=== PATIENT | female | born 2000 | race Hispanic/Latino ===

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

== ENCOUNTER → 2018-09-29 | Outpatient (CLI) | payer MEDICAID ==
--- NOTE | 2018-09-29 10:43 | Diagnostic Imaging Report ---
CLINICAL INDICATION: Patient with thyroid nodule. COMPARISONS: Thyroid ultrasound dated 10/21/2016. FINDINGS: THYROID NODULES: There is a 4 mm x 2 mm x 4 mm slightly heterogeneous hypoechoic nodule involving the medial midportion of the left thyroid gland. There is no significant central Doppler flow. Given the differences in technique, this nodule is grossly stable. THYROID GLAND: Besides the thyroid nodule, the thyroid gland has normal size, shape and echogenicity. The right lobe measures 4.2 cm x 1.6 cm x 1.0 cm and the left lobe measures 3.3 cm x 0.7 cm x 1.0 cm in their three dimensions. ISTHMUS: The isthmus is unremarkable and measures 2.7 mm in thickness. IMPRESSION: 1: Given the differences in technique, there is no significant change in size of the 4 mm benign-appearing nodule in the left thyroid gland. 2: Otherwise, the thyroid gland is unremarkable. Dictated by: Dictated on workstation # [id number]
== END ==
LOC: RAD 08:14
PROVIDERS: ATTEND Family Medicine
DX: E04.1 Nontoxic single thyroid nodule (principal)
CPT/HCPCS: 76536

== ENCOUNTER 2019-02-24 03:40 | Emergency (ER) | payer BC, MEDICAID ==
[~2019-02-24] VITALS: Ht 160 cm; Wt 56.7 kg
--- OUTSIDE RECORDS SUMMARY | 2019-02-24 03:46 | XMS REPORT ---
Author Author SHANE GOLDEN [facility] Address [address] [place] [address] Care Team Providers Care Civil Process Server Name Role Phone PERICOTroy SHANE Unavailable PROBLEMS Unknown Problems ALLERGIES No Known Allergies ENCOUNTERS Encounter Location Date Diagnosis [facility] [address], [place] [address] Dec, School physical exam Z02.0 [facility] [address] [id number] Oct, Encounter for immunization Z23 [facility] [address] [id number] Aug, Encounter for immunization Z23 [facility] [address] [id number] Aug, Encounter for immunization Z23 [facility] [address] [id number] Jul, Visit for TB skin test Z11.1 and Screening for tuberculosis Z11.1 [facility] [place] [address] [id number] Jul, Visit for TB skin test Z11.1 and Screening for tuberculosis Z11.1 [facility] [address] [facility] [id number], [place] [address] Jun, [facility] [place] [address] [id number] Jun, Acute non-recurrent maxillary sinusitis J01.00 [facility] [address] [id number] [place] [address] Jul, [facility] [id number] [address] Feb, [facility] [place] [facility] [address] [facility] [id number], [place] [address] Feb, [facility] [place] [facility] [address] [facility] [id number], [place] [address] Feb, [facility] [place] [facility] [address] [facility] [id number], [place] [address] Feb, [facility] [place] [facility] [address] [facility] [id number], [place] [address] Feb, Encounter for PPD test V74.1 [facility] [place] [facility] [address] [facility] [id number] [place] [address] Feb, Encounter for PPD test V74.1 [facility] [place] [facility] [id number] [place] [address] Jan, [facility] [place] [facility] [address] [facility] [id number], [place] [address] Jan, [facility] [place] [facility] [address] [facility] [id number], [place] [address] Jan, [facility] [place] [facility] [address] [facility] [id number], [place] [address] Dec, [facility] [place] [facility] [address] [facility] [id number], [place] [address] Dec, [facility] [place] [facility] [address] [facility] [id number], [place] [address] Sep, [facility] [place] [facility] [address] [facility] [id number] [place] [address] Sep, [facility] [place] [facility] [address] [facility] [id number], [place] [address] Aug, [facility] [place] [facility] [address] [facility] [id number] [place] [address] Aug, [facility] [place] [facility] [address] [facility] [id number] [place] [address] Jul, [facility] [place] [facility] [address] [id number] [place] [address] Jul, [facility] [place] [facility] [address] [id number] [place] [address] Jul, [facility] [place] [facility] [address] [id number] [place] [address] Jul, [facility] [place] [facility] [address] [id number] [place] [address] Jul, [facility] [place] [facility] [address] [id number] [place] [address] Jul, [facility] [place] [facility] [address] [id number] [place] [address] Jul, [facility] [place] [facility] [address] [id number] [place] [address] Jul, [facility] [place] [facility] [address] [id number] [place] [address] Jun, [facility] [place] [facility] [address] [id number] [place] [address] Jun, [facility] [place] [facility] [address] [id number] [place] [address] May, [facility] [place] [facility] [address] [id number] [place] [address] May, [facility] [place] [facility] [address] [id number] [place] [address] 14 Apr, 2014 [facility] [place] [facility] [address] [id number] [place] [address] 14 Apr, 2014 [facility] [place] [facility] [address] [id number] [place] [address] 10 Apr, 2014 [facility] [place] [facility] [address] [id number] [place] [address] 10 Apr, 2014 [facility] [address] [facility] [id number], [place] [address] Mar, [facility] [address] [facility] [id number], [place] [address] Mar, [facility] [address] [facility] [id number], [place] [address] Feb, [facility] [address] [facility] [id number], [place] [address] Feb, [facility] [address] [facility] [id number], [place] [address] Feb, [facility] [address] [facility] [id number], [place] [address] Feb, [facility] [address], [place] [address] Jan, [facility] [address], [place] [address] Jan, [facility] [id number], [place] [address] Sep, [facility] [id number], [place] [address] Sep, [facility] [id number], [place] [address] Feb, [facility] [id number], [place] [address] Feb, IMMUNIZATIONS No Known Immunizations SOCIAL HISTORY Never Assessed 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 PLAN OF CARE Activity Details Follow Up prn Reason: VITAL SIGNS Height 62.5 in 2017-12-28 Weight 121.9 lbs 2017-12-28 Temperature 98.0 degrees Fahrenheit 2017-12-28 Heart Rate 70 bpm 2017-12-28 Respiratory Rate 18 2017-12-28 BMI 21.94 kg/m2 2017-12-28 Blood pressure systolic 112 mmHg 2017-12-28 Blood pressure diastolic 68 mmHg 2017-12-28 MEDICATIONS No Known Medications RESULTS Name Result Date Reference Range URINE DRUG SCREEN (IN HOUSE) 2017-12-28 Lot # [id number] Exp date 02/09 Control + COCAINE negative AMPH negative MTD negative THC negative OPIATE negative BENZO negative PCP negative BAR negative OXY negative MAMP negative BUP negative MDMA negative TCA n/a PROCEDURES Procedure Date Ordered Result Body Site SPECIMEN HANDLING December 28, 2017 VENIPUNCT, ROUTINE* December 28, 2017 DRUG TEST PRSMV DIR OPT OBS December 28, 2017 INSTRUCTIONS MEDICATIONS ADMINISTERED No Known Medications MEDICAL (GENERAL) HISTORY Type Description Date Surgical History apendectomy 2013
--- OUTSIDE RECORDS SUMMARY | 2019-02-24 03:46 | XMS REPORT ---
Author Author SANDRA FROST Organization [facility] Address [address] [place] [address] Care Team Providers Care County Agent Name Role Phone SANDRA FROST Unavailable PROBLEMS Type Condition ICD9-CM Code [id number] Code Onset Dates Condition Status SNOMED Code Problem Gastroesophageal reflux disease with esophagitis K21.0 Active [id number] ALLERGIES No Known Allergies ENCOUNTERS Encounter Location Date Diagnosis [facility] [id number] [place] [address] Feb, Gastroesophageal reflux disease with esophagitis K21.0 [facility] [id number] [place] [address] Dec, School physical exam Z02.0 [facility] [id number] [place] [id number] Oct, Encounter for immunization Z23 [facility] [id number] [place] [id number] Aug, Encounter for immunization Z23 [facility] [id number] [place] [id number] Aug, Encounter for immunization Z23 [facility] [id number] [place] [id number] Jul, Visit for TB skin test Z11.1 and Screening for tuberculosis Z11.1 [facility] [address] [id number] Jul, Visit for TB skin test Z11.1 and Screening for tuberculosis Z11.1 [facility] [id number] [place] [address] Jun, [facility] [address], [place] [id number] Jun, Acute non-recurrent maxillary sinusitis J01.00 [facility] [address] [id number] [place] [address] Jul, [facility] [address], [place] [address] Feb, [facility] [address], [place] [address] Feb, [facility] [address], [place] [address] Feb, [facility] [id number] [place] [address] Feb, [facility] [address], [place] [address] Feb, Encounter for PPD test V74.1 [facility] [address], [place] [address] Feb, Encounter for PPD test V74.1 [facility] [address], [place] [address] Jan, [facility] [address], [place] [address] Jan, [facility] [id number], [place] [address] Jan, [facility] [id number], [place] [address] Dec, [facility] [id number], [place] [address] Dec, [facility] [address], [place] [address] Sep, [facility] [id number], [place] [address] Sep, [facility] [address] [place] [address] 17 Aug, 2014 [facility] [address] [id number] [place] [address] 17 Aug, 2014 [facility] [place] [facility] [address] [id number] [place] [address] Jul, [facility] [address] [id number] [place] [address] Jul, [facility] [place] [facility] [address] [id number] [place] [address] Jul, [facility] [address] [id number] [place] [address] Jul, [facility] [place] [facility] [address] [id number] [place] [address] Jul, [facility] [place] [facility] [address] [id number] [place] [address] Jul, [facility] [address] [id number] [place] [address] Jul, [facility] [place] [facility] [address] [id number] [place] [address] Jul, [facility] [address] [facility] [id number] [place] [address] Jun, [facility] [place] [facility] [address] [id number] [place] [address] Jun, [facility] [place] [facility] [address] [id number] [place] [address] May, [facility] [place] [facility] [address] [id number] [place] [address] May, [facility] [place] [facility] [address] [id number] [place] [address] 14 Apr, 2014 [facility] [place] [facility] [address] [id number] [place] [address] Apr, [facility] [address] [facility] [id number] [address] Apr, [facility] [address] [facility] [id number] [place] [address] Apr, [facility] [address] [facility] [id number] [place] [address] Mar, [facility] [address] [facility] [id number] [place] [address] Mar, [facility] [address] [id number] [place] [address] Feb, [facility] [address] [facility] [id number] [place] [address] Feb, [facility] [address] [facility] [id number] [place] [address] Feb, [facility] [address] [facility] [id number], [place] [address] Feb, [facility] [id number], [place] [address] Jan, [facility] [id number], [place] [address] Jan, [facility] [id number], [place] [address] Sep, [facility] [id number], [place] [address] Sep, [facility] [id number], [place] [address] Feb, [facility] [id number], [place] [address] Feb, IMMUNIZATIONS No Known Immunizations SOCIAL HISTORY Never Assessed REASON FOR VISIT fever/stomach pain JStrasserRN PLAN OF CARE VITAL SIGNS Height 62.5 in 2018-03-18 Weight 216 lbs 2018-03-18 Heart Rate 72 bpm 2018-03-18 Respiratory Rate 16 2018-03-18 BMI 38.87 kg/m2 2018-03-18 Blood pressure systolic 122 mmHg 2018-03-18 Blood pressure diastolic 68 mmHg 2018-03-18 MEDICATIONS Medication Instructions Dosage Frequency Start Date End Date Duration Status Famotidine 20 mg Orally every 12 hrs 1 tablet as needed 12h Feb, 30 day(s) Active RESULTS No Results PROCEDURES No Known procedures INSTRUCTIONS MEDICATIONS ADMINISTERED No Known Medications MEDICAL (GENERAL) HISTORY Type Description Date Surgical History apendectomy 2013
--- OUTSIDE RECORDS SUMMARY | 2019-02-24 03:46 | XMS REPORT ---
Author Author SHAWN CARR [facility] Address [address] [place] [address] Care Team Providers Care Jewish Thought Professor Name Role Phone SHAWN CARR Unavailable PROBLEMS Type Condition ICD9-CM Code AUN07-RO Code Onset Dates Condition Status SNOMED Code Problem Gastroesophageal reflux disease with esophagitis K21.0 Active [id number] ALLERGIES No Information ENCOUNTERS Encounter Location Date Diagnosis [facility] [address], [place] [address] Feb, Gastroesophageal reflux disease with esophagitis K21.0 [facility] [id number] [place] [address] Dec, School physical exam Z02.0 [facility] [id number] [place] [address] [id number] Oct, Encounter for immunization Z23 [facility] [id number] [place] [address] [id number] Aug, Encounter for immunization Z23 [facility] [address] [id number] [id number] Aug, Encounter for immunization Z23 [facility] [id number] [place] [address] [id number] Jul, Visit for TB skin test Z11.1 and Screening for tuberculosis Z11.1 [facility] [id number] [place] [address] [id number] Jul, Visit for TB skin test Z11.1 and Screening for tuberculosis Z11.1 [facility] [address] [id number] [address] Jun, [facility] [address] [place] [id number] Jun, Acute non-recurrent maxillary sinusitis J01.00 [facility] [address] [id number] [place] [address] Jul, [facility] [address] [facility] [id number], [place] [address] Feb, [facility] [address] [facility] [id number], [place] [address] Feb, [facility] [address] [id number] [address] Feb, [facility] [address], [place] [address] Feb, [facility] [address], [place] [address] Feb, Encounter for PPD test V74.1 [facility] [address], [place] [address] Feb, Encounter for PPD test V74.1 [facility] [address] [id number], [place] [address] Jan, [facility] [address], [place] [address] Jan, [facility] [address] [id number], [place] [address] Jan, [facility] [address] [id number], [place] [address] Dec, [facility] [address] [id number], [place] [address] Dec, [facility] [address] [id number], [place] [address] Sep, [facility] [address] [id number], [place] [address] Sep, [facility] [address] [id number] [place] [address] 17 Aug, 2014 [facility] [address] [id number] [place] [address] Aug, [facility] [place] [facility] [address] [id number] [place] [address] Jul, [facility] [place] [facility] [address] [id number] [place] [address] Jul, [facility] [place] [facility] [address] [id number] [place] [address] Jul, [facility] [place] [facility] [address] [id number] [place] [address] Jul, [facility] [place] [facility] [address] [id number] [place] [address] Jul, [facility] [place] [facility] [address] [id number] [place] [address] Jul, [facility] [place] [facility] [address] [id number] [place] [address] Jul, [facility] [place] [facility] [address] [id number] [place] [address] Jul, [facility] [place] [facility] [address] [id number] [place] [address] Jun, [facility] [place] [facility] [address] [id number] [place] [address] Jun, [facility] [place] [facility] [address] [id number] [place] [address] May, [facility] [place] [facility] [address] [id number] [place] [address] May, [facility] [place] [facility] [address] [id number] [place] [address] Apr, [facility] [place] [facility] [address] [id number] [place] [address] Apr, [facility] [address] [facility] [id number], [place] [address] Apr, [facility] [address] [facility] [id number], [place] [address] Apr, [facility] [address] [facility] [id number], [place] [address] Mar, [facility] [address] [id number], [place] [address] Mar, [facility] [address] [facility] [id number], [place] [address] Feb, [facility] [address] [facility] [id number], [place] [address] Feb, [facility] [address] [facility] [id number], [place] [address] Feb, [facility] [address] [facility] [id number], [place] [address] Feb, [facility] [address] [facility] [id number], [place] [address] Jan, [facility] [address] [facility] [id number], [place] [address] Jan, [facility] [address] [facility] [id number], [place] [address] Sep, [facility] [address] [facility] [id number], [place] [address] Sep, [facility] [address] [facility] [id number], [place] [address] Feb, [facility] [address] [facility] [id number], [place] [address] Feb, IMMUNIZATIONS No Known Immunizations SOCIAL HISTORY Never Assessed REASON FOR VISIT PLAN OF CARE VITAL SIGNS MEDICATIONS No Known Medications RESULTS No Results PROCEDURES No Known procedures INSTRUCTIONS MEDICATIONS ADMINISTERED No Known Medications MEDICAL (GENERAL) HISTORY Type Description Date Surgical History apendectomy 2014
--- OUTSIDE RECORDS SUMMARY | 2019-02-24 03:46 | XMS REPORT ---
Author Author SHAWN CARR [facility] Address [address] [place] [address] Care Team Providers Care Steamboat Pilot Name Role Phone SHAWN CARR Unavailable PROBLEMS Type Condition ICD9-CM Code GTP78-QU Code Onset Dates Condition Status SNOMED Code Problem Gastroesophageal reflux disease with esophagitis K21.0 Active [id number] ALLERGIES No Information ENCOUNTERS Encounter Location Date Diagnosis [facility] [address] [address] Feb, Gastroesophageal reflux disease with esophagitis K21.0 [facility] [id number] [place] [place] [address] Dec, School physical exam Z02.0 [facility] [id number] [place] [place] [address] [id number] Oct, Encounter for immunization Z23 [facility] [id number] [place] [place] [address] [id number] Aug, Encounter for immunization Z23 [facility] [address] [id number] [id number] Aug, Encounter for immunization Z23 [facility] [id number] [place] [place] [address] [id number] Jul, Visit for TB skin test Z11.1 and Screening for tuberculosis Z11.1 [facility] [id number] [place] [place] [address] [id number] Jul, Visit for TB skin test Z11.1 and Screening for tuberculosis Z11.1 [facility] [address] [id number] [address] Jun, [facility] [address] [place] [id number] Jun, Acute non-recurrent maxillary sinusitis J01.00 [facility] [address] [id number] [place] [address] Jul, [facility] [address] [facility] [id number] [place] [address] Feb, [facility] [address] [facility] [id number] [place] [address] Feb, [facility] [address] [id number] [address] Feb, [facility] [address]005[address] [address] Feb, [facility] [address]005[address] [address] Feb, Encounter for PPD test V74.1 [facility] [address]005[address] [address] Feb, Encounter for PPD test V74.1 [facility] [address] [id number] [address] Jan, [facility] [address]005[address] [address] Jan, [facility] [address] [id number] [address] Jan, [facility] [address] [id number] [address] Dec, [facility] [address] [id number] [address] Dec, [facility] [address] [id number] [address] Sep, [facility] [address] [id number] [address] Sep, [facility] [address] [id number] [place] [address] 17 Aug, 2014 [facility] [address] [id number] [place] [address] Aug, [facility] [place] [facility] [address] [id number] [place] [address] Jul, [facility] [place] [facility] [address] [id number] [place] [address] Jul, [facility] [place] [facility] [address] [id number] [place] [address] Jul, [facility] [place] [facility] [address] [id number] [place] [address] Jul, [facility] [place] [facility] [address] [id number] [place] [address] Jul, [facility] [place] [facility] [address] [id number] [place] [address] Jul, [facility] [place] [facility] [address] [id number] [place] [address] Jul, [facility] [place] [facility] [address] [id number] [place] [address] Jul, [facility] [place] [facility] [address] [id number] [place] [address] Jun, [facility] [place] [facility] [address] [id number] [place] [address] Jun, [facility] [place] [facility] [address] [id number] [place] [address] May, [facility] [place] [facility] [address] [id number] [place] [address] May, [facility] [place] [facility] [address] [id number] [place] [address] Apr, [facility] [place] [facility] [address] [id number] [place] [address] Apr, [facility] [address] [facility] [id number] [place] [address] Apr, [facility] [address] [facility] [id number] [place] [address] Apr, [facility] [address] [facility] [id number] [place] [address] Mar, [facility] [address] [id number] [place] [address] Mar, [facility] [address] [facility] [id number] [place] [address] Feb, [facility] [address] [facility] [id number] [place] [address] Feb, [facility] [address] [facility] [id number] [place] [address] Feb, [facility] [address] [facility] [id number] [place] [address] Feb, [facility] [address] [facility] [id number] [place] [address] Jan, [facility] [address] [facility] [id number] [place] [address] Jan, [facility] [address] [facility] [id number] [place] [address] Sep, [facility] [address] [facility] [id number] [place] [address] Sep, [facility] [address] [facility] [id number] [place] [address] Feb, [facility] [address] [facility] [id number] [place] [address] Feb, IMMUNIZATIONS No Known Immunizations SOCIAL HISTORY Never Assessed REASON FOR VISIT PLAN OF CARE VITAL SIGNS MEDICATIONS No Known Medications RESULTS No Results PROCEDURES No Known procedures INSTRUCTIONS MEDICATIONS ADMINISTERED No Known Medications MEDICAL (GENERAL) HISTORY Type Description Date Surgical History apendectomy 2014
--- OUTSIDE RECORDS SUMMARY | 2019-02-24 03:46 | XMS REPORT ---
Author Author SHAWN CARR [facility] Address [address] [place] [address] Care Team Providers Care Protection Consultant Name Role Phone SHAWN CARR Unavailable PROBLEMS Type Condition ICD9-CM Code WUN01-AB Code Onset Dates Condition Status SNOMED Code Problem Gastroesophageal reflux disease with esophagitis K21.0 Active [id number] ALLERGIES No Information ENCOUNTERS Encounter Location Date Diagnosis [facility] [address]00565100[place], [place] [address] Feb, Gastroesophageal reflux disease with esophagitis K21.0 [facility] [id number] [place] [address] Dec, School physical exam Z02.0 [facility] [id number] [place] [address] [id number] Oct, Encounter for immunization Z23 [facility] [id number] [place] [address] [id number] Aug, Encounter for immunization Z23 [facility] [address] [id number] [id number] Aug, Encounter for immunization Z23 [facility] [id number] [place] [address] [id number] Jul, Visit for TB skin test Z11.1 and Screening for tuberculosis Z11.1 [facility] [id number] [place] [address] [id number] Jul, Visit for TB skin test Z11.1 and Screening for tuberculosis Z11.1 [facility] [address] [id number], [place] [address] Jun, [facility] [address] [place] [id number] Jun, Acute non-recurrent maxillary sinusitis J01.00 [facility] [address] [id number] [place] [address] Jul, [facility] [address] [facility] [id number], [place] [address] Feb, [facility] [address] [facility] [id number], [place] [address] Feb, [facility] [address] [id number], [place] [address] Feb, [facility] [address]00565100[place], [place] [address] Feb, [facility] [address]00565100[place], [place] [address] Feb, Encounter for PPD test V74.1 [facility] [address]00565100[place], [place] [address] Feb, Encounter for PPD test V74.1 [facility] [address] [id number], [place] [address] Jan, [facility] [address]00565100[place], [place] [address] Jan, [facility] [address] [id number], [place] [address] Jan, [facility] [address] [id number], [place] [address] Dec, [facility] [address] [id number], [place] [address] Dec, [facility] [address] [id number], [place] [address] Sep, [facility] [address] [id number], [place] [address] Sep, [facility] [address] [id number] [address] 17 Aug, 2014 [facility] [address] [id number] [place] [address] Aug, [facility] [place] [facility] [address] [id number] [place] [address] Jul, [facility] [place] [facility] [address] [id number] [place] [address] Jul, [facility] [place] [facility] [address] [id number] [place] [address] Jul, [facility] [place] [facility] [address] [id number] [place] [address] Jul, [facility] [place] [facility] [address] [id number] [place] [address] Jul, [facility] [place] [facility] [address] [id number] [place] [address] Jul, [facility] [place] [facility] [address] [id number] [place] [address] Jul, [facility] [place] [facility] [address] [id number] [place] [address] Jul, [facility] [place] [facility] [address] [id number] [place] [address] Jun, [facility] [place] [facility] [address] [id number] [place] [address] Jun, [facility] [place] [facility] [address] [id number] [place] [address] May, [facility] [place] [facility] [address] [id number] [place] [address] May, [facility] [place] [facility] [address] [id number] [place] [address] Apr, [facility] [place] [facility] [address] [id number] [place] [address] Apr, [facility] [address] [facility] [id number], [place] [address] Apr, [facility] [address] [facility] [id number], [place] [address] Apr, [facility] [address] [facility] [id number], [place] [address] Mar, [facility] [address] [id number], [place] [address] Mar, [facility] [address] [facility] [id number], [place] [address] Feb, [facility] [address] [facility] [id number], [place] [address] Feb, [facility] [address] [facility] [id number], [place] [address] Feb, [facility] [address] [facility] [id number], [place] [address] Feb, [facility] [address] [facility] [id number], [place] [address] Jan, [facility] [address] [facility] [id number], [place] [address] Jan, [facility] [address] [facility] [id number], [place] [address] Sep, [facility] [address] [facility] [id number], [place] [address] Sep, [facility] [address] [facility] [id number], [place] [address] Feb, [facility] [address] [facility] [id number], [place] [address] Feb, IMMUNIZATIONS No Known Immunizations SOCIAL HISTORY Never Assessed REASON FOR VISIT PLAN OF CARE VITAL SIGNS MEDICATIONS No Known Medications RESULTS No Results PROCEDURES No Known procedures INSTRUCTIONS MEDICATIONS ADMINISTERED No Known Medications MEDICAL (GENERAL) HISTORY Type Description Date Surgical History apendectomy 2014
--- OUTSIDE RECORDS SUMMARY | 2019-02-24 03:47 | XMS REPORT | Continuity of Care Document ---
Author Organization Unknown Address Unknown Phone Unavailable Allergies Active Description Code Type Severity Reaction Onset Reported/Identified Relationship to Patient Clinical Status Yes No Known Drug Allergies [id number] Drug Allergy Unknown N/A 02/29/2016 Medications There is no data. Problems Date Dx Coded Attending Type Code Diagnosis Diagnosed By 01/15/2011 Ot 462 ACUTE PHARYNGITIS 01/15/2011 Ot 465.9 ACUTE URI NOS 01/15/2011 Ot 780.60 FEVER, UNSPECIFIED 01/15/2011 Ot 784.7 EPISTAXIS 03/05/2011 V70.3 SPORTS/SCHOOL EXAM 03/05/2011 SHAWN CARR DO V70.3 SPORTS/SCHOOL EXAM 02/26/2013 V04.89 GARDASIL (HPV) DX 02/26/2013 V20.2 visit for: well child visit 02/26/2013 SHAWN CARR DO V04.89 GARDASIL (HPV) DX 02/26/2013 SHAWN CARR DO V20.2 visit for: well child visit 08/06/2013 SANDRA SAMPSON MD Ot 540.9 ACUTE APPENDICITIS NOS 08/06/2013 SANDRA SAMPSON MD Ot V04.81 ND FOR PROPHYLACTIC VACCIN AND INOCULATI 10/06/2013 SHAWN CARR DO V74.1 TB SCREENING 04/29/2014 HEATHER MAZARIEGOS, POLINA Taveras Ot 599.0 URIN TRACT INFECTION NOS 04/29/2014 POLINA ROMERO MD Ot 625.9 FEM GENITAL SYMPTOMS NOS 04/29/2014 POLINA ROMERO MD Ot 646.63 INFECTION-ANTEPARTUM 04/29/2014 POLINA ROMERO MD Ot 648.93 OTH CURR COND-ANTEPARTUM 09/16/2014 Ot 644.13 THREAT LABOR NEC-ANTEPAR 09/16/2014 Ot 729.81 09/16/2014 MORE SU MD Ot 656.53 09/16/2014 MORE SU MD Ot V28.81 09/17/2014 Ot 729.81 09/17/2014 GEORGES MAZARIEGOS, MORE Burciaga Ot 656.53 09/17/2014 GEORGES MAZARIEGOS, MORE [place]ciaga Ot V28.81 09/19/2014 Ot 664.21 DEL W 3 DEG LACERAT- DEL 09/19/2014 Ot V06.1 [id number], COMBINED [ 09/19/2014 Ot V27.0 DELIVER-SINGLE LIVEBORN 01/11/2015 KAY CABALLERO MD Ot 618.04 RECTOCELE 01/17/2015 KAY CABALLERO MD Ot 285.9 01/17/2015 AKY CABALLERO MD Ot 751.5 01/17/2015 KAY CABALLERO MD Ot V72.63 01/17/2015 KAY CABALLERO MD Ot V74.8 09/29/2015 Ot 729.81 09/29/2015 GEORGES MAZARIEGOS, MORE [place]aga Ot 656.53 09/29/2015 GEORGES MAZARIEGOS, MORE [place] Ot V28.81 09/29/2015 KAY CABALLERO MD Ot [...] 03/29/2016 Ot 729.81 SWELLING OF LIMB 03/29/2016 GEORGES MAZARIEGOS, MORE [place] Ot 656.53 POOR GRTH-ANTEPART 03/29/2016 MORE SU MD Ot V28.81 ENCOUNTER FOR ANATOMIC SURVEY 03/29/2016 KAY CABALLERO MD Ot 285.9 ANEMIA NOS 03/29/2016 KAY CABALLERO MD Ot 751.5 INTESTINAL ANOMALY NEC 03/29/2016 KAY CABALLERO MD Ot V72.63 PRE-PROCEDURAL LABORATORY EXAMINATION 03/29/2016 KAY CABALLERO MD, Ot V74.8 SCREEN-BACTERIAL DIS NEC 03/29/2016 GEORGES MAZARIEGOS, MORE [place]aga Ot E04.1 NONTOXIC SINGLE THYROID NODULE 03/29/2016 HEATHER MAZARIEGOS, POLINA Taveras Ot R10.32 LEFT LOWER QUADRANT PAIN 03/29/2016 HEATHER MAZARIEGOS, POLINA Taveras Ot 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 04/01/2016 HEATHER MAZARIEGOS, POLINA T Ot R10.32 LEFT LOWER QUADRANT PAIN 04/01/2016 HEATHER MAZARIEGOS, POLINA Taveras Ot 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 09/03/2016 ANAYA MAZARIEGOS, STEPHEN Monzon Ot R13.10 DYSPHAGIA, UNSPECIFIED 09/03/2016 ANAYA MAZARIEGOS, STEPHEN Monzon Ot Z01.818 ENCOUNTER FOR OTHER PREPROCEDURAL EXAMIN 09/06/2016 Ot 729.81 SWELLING OF LIMB 09/06/2016 GEORGES MAZARIEGOS, MORE [place] Ot 656.53 POOR GRTH-ANTEPART 09/06/2016 GEORGES MAZARIEGOS, MORE [place] Ot V28.81 ENCOUNTER FOR ANATOMIC SURVEY 09/06/2016 KAY CABALLERO MD Ot 285.9 ANEMIA NOS 09/06/2016 KAY CABALLERO MD Ot 751.5 INTESTINAL ANOMALY NEC 09/06/2016 KAY CABALLERO MD Ot V72.63 PRE-PROCEDURAL LABORATORY EXAMINATION 09/06/2016 KAY CABALLERO MD Ot V74.8 SCREEN-BACTERIAL DIS NEC 09/06/2016 GEORGES MAZARIEGOS, MORE [place] Ot E04.1 NONTOXIC SINGLE THYROID NODULE 09/06/2016 ANAYA MAZARIEGOS, STEPHEN Monzon Ot K20.9 ESOPHAGITIS, UNSPECIFIED 09/06/2016 ANAYA MAZARIEGOS, STEPHEN Monzon Ot K44.9 DIAPHRAGMATIC HERNIA WITHOUT OBSTRUCTION 09/06/2016 ANAYA MAZARIEGOS, STEPHEN Monzon Ot R13.10 DYSPHAGIA, UNSPECIFIED 09/06/2016 ANAYA MAZARIEGOS, STEPHEN Monzon Ot Z01.818 ENCOUNTER FOR OTHER PREPROCEDURAL EXAMIN 09/07/2016 ANAYA MAZARIEGOS, STEPHEN Monzon Ot K20.9 ESOPHAGITIS, UNSPECIFIED 09/07/2016 ANAYA MAZARIEGOS, STEPHEN Monzon Ot K44.9 DIAPHRAGMATIC HERNIA WITHOUT OBSTRUCTION 10/21/2016 GEORGES MAZARIEGOS, MORE [place] Ot 656.53 POOR GRTH-ANTEPART 10/21/2016 GEORGES MAZARIEGOS, MORE [place] Ot V28.81 ENCOUNTER FOR ANATOMIC SURVEY 10/21/2016 KAY CABALLERO MD Ot 285.9 ANEMIA NOS 10/21/2016 KAY CABALLERO MD Ot 751.5 INTESTINAL ANOMALY NEC 10/21/2016 KAY CABALLERO MD Ot V72.63 PRE-PROCEDURAL LABORATORY EXAMINATION 10/21/2016 KAY CABALLERO MD, Ot V74.8 SCREEN-BACTERIAL DIS NEC 10/21/2016 MORE SU MD Ot E04.1 NONTOXIC SINGLE THYROID NODULE 11/05/2016 GEORGES MAZARIEGOS, MORE [place] Ot 656.53 POOR GRTH-ANTEPART 11/05/2016 MORE SU MD Ot V28.81 ENCOUNTER FOR ANATOMIC SURVEY 11/05/2016 KAY CABALLERO MD Ot 285.9 ANEMIA NOS 11/05/2016 KAY CABALLERO MD Ot 751.5 INTESTINAL ANOMALY NEC 11/05/2016 KAY CABALLERO MD, Ot V72.63 PRE-PROCEDURAL LABORATORY EXAMINATION 11/05/2016 KAY CABALLERO MD, Ot V74.8 SCREEN-BACTERIAL DIS NEC 11/05/2016 MORE SU MD Ot E04.1 NONTOXIC SINGLE THYROID NODULE 11/05/2016 CARLIE MAZARIEGOS, [place] Sheehan Ot E04.1 NONTOXIC SINGLE THYROID NODULE 11/06/2016 ANAYA MAZARIEGOS, STEPHEN Monzon Ot K20.9 ESOPHAGITIS, UNSPECIFIED 11/06/2016 STEPHEN JULIEN MD Ot K44.9 DIAPHRAGMATIC HERNIA WITHOUT OBSTRUCTION 11/09/2016 AZ SEXTON MD Ot E04.1 NONTOXIC SINGLE THYROID NODULE 02/12/2017 SAYDA CORDOBA MD Ot I10 ESSENTIAL (PRIMARY) HYPERTENSION 02/12/2017 SAYDA CORDOBA MD Ot R13.10 DYSPHAGIA, UNSPECIFIED 02/12/2017 SAYDA CORDOBA MD, Ot R51 HEADACHE 02/12/2017 SAYDA CORDOBA MD Ot Z90.49 ACQUIRED ABSENCE OF OTHER SPECIFIED PART 02/15/2017 SAYDA CORDOBA MD Ot I10 ESSENTIAL (PRIMARY) HYPERTENSION 02/15/2017 SAYDA CORDOBA MD Ot R13.10 DYSPHAGIA, UNSPECIFIED 02/15/2017 SAYDA CORDOBA MD Ot R51 HEADACHE 02/15/2017 SAYDA CORDOBA MD Ot Z90.49 ACQUIRED ABSENCE OF OTHER SPECIFIED PART 02/22/2017 AZ SEXTON MD, Ot R51 HEADACHE 02/22/2017 AZ SEXTON MD, Ot R51 HEADACHE 03/03/2017 AZ SEXTON MD, Ot R51 HEADACHE 07/23/2017 MORE SU MD Ot 656.53 POOR GRTH-ANTEPART 07/23/2017 MORE SU MD Ot V28.81 ENCOUNTER FOR ANATOMIC SURVEY 07/23/2017 KAY CABALLERO MD Ot 285.9 ANEMIA NOS 07/23/2017 KAY CABALLERO MD Ot 751.5 INTESTINAL ANOMALY NEC 07/23/2017 KAY CABALLERO MD, Ot V72.63 PRE-PROCEDURAL LABORATORY EXAMINATION 07/23/2017 KAY CABALLERO MD, Ot V74.8 SCREEN-BACTERIAL DIS NEC 07/23/2017 GEORGES MAZARIEGOS, MORE [place] Ot E04.1 NONTOXIC SINGLE THYROID NODULE 07/23/2017 AZ SEXTON MD, Ot E04.1 NONTOXIC SINGLE THYROID NODULE 07/23/2017 AZ SEXTON MD, Ot R51 HEADACHE 07/23/2017 TRISTAN RICHARD Ot J11.1 FLU DUE TO UNIDENTIFIED INFLUENZA VIRUS 07/23/2017 TRISTAN RICHARD Ot R50.9 FEVER, UNSPECIFIED 07/23/2017 TRISTAN RICHARD Ot Z87.19 PERSONAL HISTORY OF OTHER DISEASES OF TH 07/23/2017 TRISTAN RICHARD Ot Z90.49 ACQUIRED ABSENCE OF OTHER SPECIFIED PART 12/06/2017 AZ SEXTON MD, Ot R22.1 LOCALIZED SWELLING, MASS AND LUMP, NECK 12/11/2017 AZ SEXTON MD, Ot R22.1 LOCALIZED SWELLING, MASS AND LUMP, NECK 09/26/2018 AZ SEXTON MD, Ot R22.1 LOCALIZED SWELLING, MASS AND LUMP, NECK 09/29/2018 AZ SEXTON MD, Ot R22.1 LOCALIZED SWELLING, MASS AND LUMP, NECK 10/02/2018 AZ SEXTON MD Ot E04.1 NONTOXIC SINGLE THYROID NODULE 10/26/2018 MORE SU MD Ot 656.53 POOR GRTH-ANTEPART 10/26/2018 MORE SU MD Ot V28.81 ENCOUNTER FOR ANATOMIC SURVEY 10/26/2018 KAY CABALLERO MD Ot 285.9 ANEMIA NOS 10/26/2018 KAY CABALLERO MD Ot 751.5 INTESTINAL ANOMALY NEC 10/26/2018 KAY CABALLERO MD Ot V72.63 PRE-PROCEDURAL LABORATORY EXAMINATION 10/26/2018 KAY CABALLERO MD, Ot V74.8 SCREEN-BACTERIAL DIS NEC 10/26/2018 MORE SU MD Ot E04.1 NONTOXIC SINGLE THYROID NODULE 10/26/2018 AZ SEXTON MD, Ot E04.1 NONTOXIC SINGLE THYROID NODULE 10/26/2018 AZ SEXTON MD, Ot R51 HEADACHE 10/26/2018 AZ SEXTON MD, Ot E04.1 NONTOXIC SINGLE THYROID NODULE Procedures Code Description [place] [address] PURE TONE HEARING TEST AIR 02/28/2013 91909 TB TEST INTRADERMAL 10/06/2013 75.62 REPAIR OB LAC RECT/ANUS 09/18/2014 Results Test Result Range Complete urinalysis with reflex to culture - 02/29/16 14:13 Urine color determination YELLOW NRG Urine clarity determination CLEAR NRG Urine pH measurement by test strip 8 5-9 Specific gravity of urine by test strip 1.010 1.016-1.022 Urine protein assay by test strip, semi-quantitative [...] sediment leukocyte count by microscopy (number/high power field) [HPF] NRG Bacteria detection in urine sediment [...] Automated erythrocyte mean corpuscular hemoglobin concentration measurement (mass/volume) 33 g/dL 32-36 Automated erythrocyte distribution width ratio 15.5 % 10.0- 14.5 Automated blood platelet count (count/volume) 305 10*3/uL [...] Blood monocytes automated count (number/volume) 0.5 10*3 0.0- 1.0 Automated eosinophil count 0.2 10*3/uL 0.0-0.3 Automated [...] Serum or plasma aspartate aminotransferase measurement (enzymatic activity/volume) 22 U/L 5-34 Serum or plasma alanine aminotransferase measurement (enzymatic activity/volume) 13 U/L 0-55 Serum or plasma protein [...] Automated erythrocyte mean corpuscular hemoglobin concentration measurement (mass/volume) 33 g/dL 32-36 Automated erythrocyte distribution width ratio 15.2 % 10.0- 14.5 Automated blood platelet count (count/volume) 312 10*3/uL [...] Blood monocytes automated count (number/volume) 0.5 10*3 0.0- 1.0 Automated eosinophil count 0.3 10*3/uL 0.0-0.3 Automated [...] Serum or plasma aspartate aminotransferase measurement (enzymatic activity/volume) 20 U/L 5-34 Serum or plasma alanine aminotransferase measurement (enzymatic activity/volume) 15 U/L 0-55 Serum or plasma protein measurement (mass/volume) 8.1 g/dL 6.4-8.2 Serum or plasma albumin measurement (mass/volume) 4.3 g/dL 3.2-4.5 Serum or plasma C reactive protein measurement (mass/volume) - 03/29/16 14:56 Serum or plasma C reactive protein measurement (mass/volume) 0.15 mg/dL 0.00-0.50 Complete urinalysis with reflex to culture - 03/29/16 15:00 Urine color determination YELLOW NRG Urine clarity determination CLEAR NRG Urine pH measurement by test strip 7 5-9 Specific gravity of urine by test strip 1.005 1.016-1.022 Urine protein assay by test strip, semi-quantitative [...] sediment leukocyte count by microscopy (number/high power field) NONE NRG Bacteria detection in urine sediment [...] Status Pt. Type Provider Facility Loc./Unit Complaint [id number] 10/06/2013 10:13:00 10/06/2013 23:59:59 CLS Outpatient SHAWN CARR DO [id number] 02/26/2013 16:28:00 Document Registration [id number] 01/11/2015 03:58:23 ACT Document Registration [id number] 12/28/2017 11:20:00 12/28/2017 23:59:59 CLS Outpatient SHAWN CARR DO [facility] [id number] 09/29/2018 08:14:00 09/29/2018 23:59:59 CLS Outpatient AZ SEXTON MD [facility] RAD THYROID NODULE [id number] 12/05/2017 15:05:00 12/05/2017 23:59:59 CLS Outpatient AZ SEXTON MD [facility] RAD RT NECK MASS,RT NECK PAIN [id number] 11/28/2017 12:53:00 11/28/2017 23:59:59 CLS Outpatient IMELDA ZAMBRANO [facility] OCC LEFT SHOULDER STRAIN [id number] 07/23/2017 17:36:00 07/23/2017 19:16:00 DIS Emergency TRISTAN RICHARD [facility] ER FLU SYPTOMS,FEVER [id number] 02/17/2017 13:01:00 02/17/2017 23:59:59 CLS Outpatient AZ SEXTON MD [facility] RAD HEADACHE [id number] 02/12/2017 06:56:00 02/12/2017 08:40:00 DIS Emergency SAYDA CORDOBA MD [facility] ER PROBLEMS W/HIGH BLOOD PRESSURE,YING [id number] 10/21/2016 08:35:00 10/21/2016 23:59:59 CLS Outpatient AZ SEXTON MD [facility] RAD E04.1 [id number] 09/06/2016 09:23:00 09/06/2016 11:35:00 DIS Outpatient STEPHEN JULIEN MD [facility] ENDO DYSPHAGIA [id number] 09/03/2016 05:35:00 09/03/2016 23:59:59 CLS Outpatient STEPHEN JULIEN MD [facility] PREOP DYSPHAGIA [id number] 03/29/2016 14:37:00 03/29/2016 18:08:00 DIS Emergency POLINA ROMERO MD [facility] ER LOWER RIGHT SIDE ABD PAIN [id number] 02/29/2016 14:09:00 02/29/2016 15:26:00 DIS Emergency TRISTAN RICHARD [facility] ER R SIDE PAIN [id number] 12/04/2015 16:05:00 12/04/2015 23:59:59 CLS Outpatient MORE SU MD [facility] RAD SWELLING IN THROAT [id number] 09/29/2015 12:00:00 09/29/2015 14:01:00 DIS Emergency SANDRA PEREZ DO [facility] ER RIGHT SIDE CHEST PAIN [id number] 01/10/2015 11:55:00 01/11/2015 10:40:00 DIS [facility] [id number] 01/03/2015 15:34:00 01/03/2015 23:59:59 CLS Outpatient KAY CABALLERO MD [facility] PREOP RECTOCELE [id number] 05/13/2014 13:15:00 05/13/2014 23:59:59 CLS Outpatient MORE SU MD [facility] RAD SURVEY [id number] 04/29/2014 22:04:00 04/29/2014 23:09:00 DIS Emergency POLINA ROMERO MD [facility] ER ABD PAIN [id number] 02/21/2014 10:13:00 02/21/2014 23:59:59 CLS Outpatient MORE SU MD [facility] RAD SIZE/DATE DISCREPENCY [id number] 08/05/2013 17:59:00 08/06/2013 11:30:00 DIS Outpatient SANDRA SAMPSON MD [facility] SD APPENDICITIS [id number] 09/17/2014 00:15:00 Document Registration [id number] 09/16/2014 10:57:00 Document Registration [id number] 03/26/2011 11:11:00 Document Registration [id number] 01/15/2011 14:08:00 Document Registration [id number] 08/05/2013 20:20:00 08/06/2013 11:30:00 DIS Outpatient
[2019-02-24] MEDS ORDERED: LACTATED RINGERS 1,000 ML IV ONE (03:57)
[2019-02-24] MEDS ORDERED: PANTOPRAZOLE 40 MG (PROTONIX) VIAL IV ONE (04:00)
[2019-02-24] MEDS ORDERED: ONDANSETRON 4 MG/2 ML (SDV) Z0FRAN IVP ONE (04:00)
[2019-02-24] MEDS ORDERED: KETOROLAC 30 MG/ML VIAL IVP ONE (04:00)
[2019-02-24 04:06] LABS: BASOPHILS % (AUTO) 0 % (0-10); EOSINOPHILS # (AUTO) 0.1 10^3/uL (0.0-0.3); EOSINOPHILS % (AUTO) 1 % (0-10); HEMATOCRIT 36 % (35-52); HEMOGLOBIN 11.6 G/DL (11.5-16.0); LYMPHOCYTES # (AUTO) 2.3 X 10^3 (1.0-4.0); LYMPHOCYTES % (AUTO) 23 % (12-44); MEAN CORPUSCULAR HEMOGLOBIN 26 PG (25-34); MEAN CORPUSCULAR HGB CONC 32 G/DL (32-36); MEAN CORPUSCULAR VOLUME 80 FL (80-99); MEAN PLATELET VOLUME 10.1 FL (7.4-10.4); MONOCYTES # (AUTO) 0.6 X 10^3 (0.0-1.0); MONOCYTES % (AUTO) 6 % (0-12); NEUTROPHILS % (AUTO) 70 % (42-75); PLATELET COUNT 345 10^3/uL (130-400); RED CELL DISTRIBUTION WIDTH 13.9 % (10.0-14.5)
[2019-02-24] MEDS ORDERED: NS IV 500 ML 500 ML IV ONE (04:12)
--- NOTE | 2019-02-24 04:12 | ED Abdominal Pain ---
General Chief Complaint: Abdominal/GI Problems Stated Complaint: UPPER ABD PAIN Nursing Triage Note: PT STATES SHE WAS DRIVING HOME FROM A FRIENDS HOUSE AN HOUR AND A HALF PRIOR TO ARRIVAL TO THE ED WHEN SHE BEGAN TO EXPERIENCE R AND L UPPER ABDOMINAL PAIN WITH NO KNOWN ORGANIC CAUSE. PT VERBALIZES INTERMITTENT NAUSEA, STATES SHE HAS NOT VOMITIED . Sepsis Screen: No Definite Risk Source of Information: Patient Exam Limitations: No Limitations History of Present Illness Date Seen by Provider: Feb 24, 2019 Time Seen by Provider: 03:45 Initial Comments Patient presents to ER by private conveyance with chief complaint that about an hour and a half ago she was driving home from [place] where she and her cousin had been out eating tacos a couple hours before and she started experience a sharp, severe abdominal pain in her epigastric and neck right upper quadrant region. She is having nausea without vomiting no fevers chills diarrhea. She had a normal bowel movement yesterday morning. No history of IBS IBD. She's had her appendix out. No trauma, fighting falls etc. Her last menstrual period started Tuesday, 6 days ago. She has not have any significant medical history and does not take any medicines routinely. Her cousin ate the same tacos and is not having any gastric distress. She took a shower to see if that would help and it did not. Allergies and Home Medications Allergies Coded Allergies: No Known Drug Allergies (Unverified , 02/29/16) Home Medications Omeprazole Magnesium 20 Mg Tablet.dr, 20 MG PO DAILY Prescribed by: MINA REDDY on 09/06/16 1104 Oseltamivir Phosphate 75 Mg Cap, 75 MG PO BID Prescribed by: TRISTAN DOMINGUEZ on 07/23/17 1900 Patient Home Medication List Home Medication List Reviewed: Yes Review of Systems Review of Systems Constitutional: No chills, No diaphoresis, No fever EENTM: No Blurred Vision, No Double Vision Respiratory: Denies Cough, Denies Shortness of Air Cardiovascular: Denies Chest Pain, Denies Edema Gastrointestinal: See HPI; Denies Abdomen Distended; Abdominal Pain; Denies Constipated, Denies Diarrhea; Nausea; Denies Vomiting Genitourinary: Denies Burning, Denies Discharge Musculoskeletal: No back pain, No joint pain Past Efekhmc-Ypiilq-Coxtuh Hx Patient Social History Alcohol Use: Denies Use Recreational Drug Use: No Smoking Status: Never a Smoker 2nd Hand Smoke Exposure: No Recent Foreign Travel: No Contact w/Someone Who Travel: No Recent Infectious Disease Expo: No Recent Hopitalizations: No Immunizations Up To Date Tetanus Booster (TDap): Less than 5yrs PED Vaccines UTD: Yes Date of Influenza Vaccine: Jun 16, 2016 Seasonal Allergies Seasonal Allergies: No Past Medical History Surgeries: Yes (posterior repair) Appendectomy Respiratory: No Cardiac: No Neurological: No : No Last Menstrual Period: Feb 18, 2019 Reproductive Disorders: No Female Reproductive Disorders: Denies Sexually Transmitted Disease: No HIV/AIDS: No Genitourinary: No Gastrointestinal: Yes (DYSPHAGIA) Musculoskeletal: No Endocrine: Yes (THYROID NODULE) HEENT: No Cancer: No Psychosocial: No Integumentary: No Blood Disorders: No Adverse Reaction/Blood Tranf: No Family Medical History Family history: Diabetes mellitus Paternal Grandmother No Family History of: AIDS Abdominal aortic aneurysm Abdominal aortic aneurysm Acute appendicitis [place]'s disease [place]are's disease Alcoholism Alcoholism Alzheimer's disease Aphasia Aphasia Arthritis Asthma Cancer Cancer of colon Cancer of mouth Cardiovascular disease Cataract Cataracts Chest pain Colon cancer Completed stroke Congenital disease Congenital heart disease Congenital heart disease Congestive heart failure Coronary thrombosis Cystic fibrosis Cystic fibrosis Deafness or hearing loss Dementia Dementia Diabetes mellitus Drug abuse Dysphagia Dysphasia Family history: Allergy Family history: Alzheimer's disease Family history: Arthritis Family history: Asthma Family history: Breast disease Family history: Cardiovascular disease Family history: Coronary thrombosis Family history: Gastrointestinal disease Family history: Glaucoma Family history: Hypertension Family history: Osteoporosis Family history: Thyroid disorder Fibrocystic disease of breast Gastroenteritis Glaucoma Headache Headache disorder Hearing loss Heart disease Hereditary disease History of - anemia History of - disorder History of - respiratory disease History of drug abuse Human immunodeficiency virus (HIV) seropositivity Hypercholesterolemia Hypercholesterolemia Hypertension Infertile Infertility Kidney disease Kidney disease Malignant neoplasm of lung Myocardial infarction Myocardial infarction Neoplasm Not obtainable due to adoption Osteoporosis Parkinson's disease Parkinson's disease Prostate cancer Psychosocial problem Psychotic disorder Respiratory disorder Right lower quadrant pain Seizure disorder Seizure disorder Severe allergy Stroke Thyroid disease Tuberculosis Tuberculosis Visual disorder Visual impairment No Pertinent Family Hx Physical Exam Vital Signs Vital Signs - First Documented 02/24/19 03:54 Temp 98.4 Pulse 108 Resp 22 B/P (MAP) 146/97 (113) Pulse Ox 100 O2 Delivery Room Air Capillary Refill : Less Than 3 Seconds Height/Weight/BMI Height: 5'3.00" Weight: 125lbs. 0.0oz. [id number]; 14.06 BMI Method:Stated General Appearance: WD/WN, mild distress HEENT: PERRL/EOMI, normal ENT inspection Neck: No full range of motion, No normal inspection Respiratory: No lungs clear, No normal breath sounds, No no respiratory distress, No no accessory muscle use Cardiovascular: No normal peripheral pulses, No regular rate, rhythm, No no edema Peripheral Pulses: 2+ Radial Pulses (R), 2+ Radial Pulses (L) Gastrointestinal: normal bowel sounds (colitis), guarding, tenderness (epigastric and right upper quadrant) Extremities: normal range of motion, normal capillary refill Neurologic/Psychiatric: alert, oriented x 3 Skin: normal color, warm/dry Focused Exam Lactate Level 02/24/19 04:20: Lactic Acid Level 1.76 Lactic Acid Level Laboratory Tests Test 02/24/19 04:20 Lactic Acid Level 1.76 MMOL/L (0.50-2.00) Progress/Results/Core Measures Results/Orders Lab Results Laboratory Tests Test 02/24/19 04:01 02/24/19 04:20 02/24/19 05:15 Range/Units White Blood Count 10.0 4.3-11.0 10^3/uL Red Blood Count 4.48 4.35-5.85 10^6/uL Hemoglobin 11.6 11.5-16.0 G/DL Hematocrit 36 35-52 % Mean Corpuscular Volume 80 80-99 FL Mean Corpuscular Hemoglobin 26 25-34 PG Mean Corpuscular Hemoglobin Concent 32 32-36 G/DL Red Cell Distribution Width 13.9 10.0-14.5 % Platelet Count 345 130-400 10^3/uL Mean Platelet Volume 10.1 7.4-10.4 FL Neutrophils (%) (Auto) 70 42-75 % Lymphocytes (%) (Auto) 23 12-44 % Monocytes (%) (Auto) 6 0-12 % Eosinophils (%) (Auto) 1 0-10 % Basophils (%) (Auto) 0 0-10 % Neutrophils # (Auto) 7.0 1.8-7.8 X 10^3 Lymphocytes # (Auto) 2.3 1.0-4.0 X 10^3 Monocytes # (Auto) 0.6 0.0-1.0 X 10^3 Eosinophils # (Auto) 0.1 0.0-0.3 10^3/uL Basophils # (Auto) 0.0 0.0-0.1 10^3/uL Prothrombin Time 13.8 12.2-14.7 SEC INR Comment 1.0 0.8-1.4 Activated Partial Thromboplast Time 30 24-35 SEC Sodium Level 140 135-145 MMOL/L Potassium Level 3.8 3.6-5.0 MMOL/L Chloride Level 108 H 98-107 MMOL/L Carbon Dioxide Level 19 L 21-32 MMOL/L Anion Gap 13 5-14 MMOL/L Blood Urea Nitrogen 8 7-18 MG/DL Creatinine 0.75 0.60-1.30 MG/DL Estimat Glomerular Filtration Rate > 60 BUN/Creatinine Ratio 11 Glucose Level 101 70-105 MG/DL Calcium Level 9.8 8.5-10.1 MG/DL Corrected Calcium 9.6 8.5-10.1 MG/DL Total Bilirubin 0.2 0.1-1.0 MG/DL Aspartate Amino Transf (AST/SGOT) 16 5-34 U/L Alanine Aminotransferase (ALT/SGPT) 9 0-55 U/L Alkaline Phosphatase 79 40-136 U/L C-Reactive Protein High Sensitivity 0.03 0.00-0.50 MG/DL Total Protein 8.5 H 6.4-8.2 GM/DL Albumin 4.3 3.2-4.5 GM/DL Lipase 14 8-78 U/L Serum Test, Qualitative NEGATIVE NEGATIVE Lactic Acid Level 1.76 0.50-2.00 MMOL/L Urine Color YELLOW Urine Clarity CLEAR Urine pH 7 5-9 Urine Specific [place] 1.005 L 1.016-1.022 Urine Protein NEGATIVE NEGATIVE Urine Glucose (UA) NEGATIVE NEGATIVE Urine Ketones NEGATIVE NEGATIVE Urine Nitrite NEGATIVE NEGATIVE Urine Bilirubin NEGATIVE NEGATIVE Urine Urobilinogen NORMAL NORMAL MG/DL Urine Leukocyte Esterase NEGATIVE NEGATIVE Urine RBC (Auto) 5+ H NEGATIVE Urine RBC NONE /HPF Urine WBC RARE /HPF Urine Squamous Epithelial Cells 0-2 /HPF Urine Crystals NONE /LPF Urine Bacteria TRACE /HPF Urine Casts NONE /LPF Urine Mucus NEGATIVE /LPF Urine Culture Indicated NO Urine Opiates Screen NEGATIVE NEGATIVE Urine Oxycodone Screen NEGATIVE NEGATIVE Urine Methadone Screen NEGATIVE NEGATIVE Urine Propoxyphene Screen NEGATIVE NEGATIVE Urine Barbiturates Screen NEGATIVE NEGATIVE Ur Tricyclic Antidepressants Screen NEGATIVE NEGATIVE Urine Phencyclidine Screen NEGATIVE NEGATIVE Urine Amphetamines Screen NEGATIVE NEGATIVE Urine Methamphetamines Screen NEGATIVE NEGATIVE Urine Benzodiazepines Screen NEGATIVE NEGATIVE Urine Cocaine Screen NEGATIVE NEGATIVE Urine Cannabinoids Screen NEGATIVE NEGATIVE My Orders Orders - JEREMY SKELTON Cbc With Automated Diff (02/24/19 03:57) Comprehensive Metabolic Panel (02/24/19 03:57) Hs C Reactive Protein (02/24/19 03:57) Lipase (02/24/19 03:57) Hcg,Qualitative Serum (02/24/19 03:57) Ua Culture If Indicated (02/24/19 03:57) Drug Screen Stat (Urine) (02/24/19 03:57) Ct Abdomen/Pelvis W (02/24/19 03:57) Ed Iv/Invasive Line Start (02/24/19 03:57) Lactated Ringers (Lr 1000 Ml Iv Solution (02/24/19 03:57) Pantoprazole Injection (Protonix Injecti (02/24/19 04:00) Ketorolac Injection (Toradol Injection) (02/24/19 04:00) Ondansetron Injection (Zofran Injectio (02/24/19 04:00) Blood Culture (02/24/19 04:12) Protime With Inr (02/24/19 04:12) Partial Thromboplastin Time (02/24/19 04:12) Chest 1 View, Ap/Pa Only (02/24/19 04:12) Ed Iv/Invasive Line Start (02/24/19 04:12) Ed Iv/Invasive Line Start (02/24/19 04:12) Vital Signs Adult Sepsis Patie Q15M (02/24/19 04:12) Remove Rings In Anticipation O (02/24/19 04:12) Lactic Acid Analyzer (02/24/19 04:12) Ceftriaxone For Iv Use (Rocephin For I (02/24/19 04:15) Ed Iv/Invasive Line Start (02/24/19 04:12) Ns Iv 500 Ml (Sodium Chloride 0.9%) (02/24/19 04:12) Iohexol Injection (Omnipaque 350 Mg/Ml 1 (02/24/19 05:00) Received Contrast (Hold Metformin- Contr (02/24/19 05:00) Ns (Ivpb) (Sodium Chloride 0.9% Ivpb Bag (02/24/19 05:00) Medications Given in ED Current Medications Medications Dose Ordered Sig/Gisselle Route Start Time Stop Time Status Last Admin Dose Admin Ceftriaxone Sodium 1000 mg/ Sterile Water 10 ml @ 200 mls/hr ONCE ONCE IV 02/24/19 04:15 02/24/19 04:17 DC 02/24/19 04:32 200 MLS/HR Iohexol 100 ml ONCE ONCE IV 02/24/19 05:00 02/24/19 05:01 DC 02/24/19 04:55 100 ML Ketorolac Tromethamine 30 mg ONCE ONCE IVP 02/24/19 04:00 02/24/19 04:01 DC 02/24/19 04:00 30 MG Lactated Ringer's 1,000 ml @ 0 mls/hr Q0M ONCE IV 02/24/19 03:57 02/24/19 04:01 DC 02/24/19 04:12 1,000 MLS/HR Ondansetron HCl 4 mg ONCE ONCE IVP 02/24/19 04:00 02/24/19 04:01 DC 02/24/19 04:06 4 MG Pantoprazole 40 mg ONCE ONCE IV 02/24/19 04:00 02/24/19 04:01 DC 02/24/19 04:12 40 MG Sodium Chloride 100 ml ONCE ONCE IV 02/24/19 05:00 02/24/19 05:01 DC 02/24/19 04:55 80 ML Sodium Chloride 500 ml @ 0 mls/hr Q0M ONCE IV 02/24/19 04:12 02/24/19 04:14 DC 02/24/19 05:20 500 MLS/HR Vital Signs/I&O 02/24/19 02/24/19 03:54 04:30 Temp 98.4 98.4 Pulse 108 108 Resp 22 22 B/P (MAP) 146/97 (113) 146/97 Pulse Ox 100 100 O2 Delivery Room Air Room Air Blood Pressure Mean: 113 Progress Progress Note #1: Time: 04:11 Progress Note Toradol, Zofran, liter fluids and initiate a septic workup. CT of the abdomen and pelvis with IV contrast. Progress Note #2: Time: 06:16 Progress Note Patient's nausea is gone pain is significantly improved. She does not want anything else at this time. CT was not definitive so we will send her out with return precautions and instructions that if her symptoms persist for more than a few days she should follow-up with primary care and consider working up her gallbladder or upper digestive tract. Diagnostic Imaging Diagonstic Imaging: CT (with IV contrast) Plain Films/CT/US/NM/MRI: abdomen, pelvis Comments No definite acute inflammatory or obstructive process is identified within the abdomen and pelvis. Position intrauterine contraceptive device. Mild asymmetric prominence the left periuterine vessels and left ovarian vein may be associated with pelvic congestion syndrome. Please correlate with patient's pain is located to the left hemipelvis. Reviewed: Reviewed by Me Departure Impression Primary Impression: Gastroenteritis Disposition: HOME, SELF-CARE Condition: Improved Departure-Patient Inst. Decision time for Depature: 06:15 Referrals: [place] SEXTON MD (PCP/Family) Primary Care Physician Add. Discharge Instructions: Liquid diet until your nausea has passed. Zofran 1 tablet under the tongue every 6 hours as needed for nausea or vomiting. Tylenol 1000 mg every 8 hours as necessary for pain. Ibuprofen 800 mg every 8 hours as necessary for pain. Pantoprazole 20 mg once or twice a day until your symptoms resolve. Advance your diet towards a non-spicy, nongreasy brat diet consisting of food such as bananas, rice, applesauce, toast, crackers etc. until your symptoms resolve. If you're still having symptoms by Tuesday then you should follow-up with your primary care doctor for further evaluation and management. If you're having intractable abdominal pain nausea vomiting or a fever then you may return to the nearest ER. All discharge instructions reviewed with patient and/or family. Voiced understanding. Scripts Pantoprazole Sodium (Pantoprazole Sodium) 20 Mg Tablet.dr 20 MG PO DAILY for 14 Days, #14 TAB 0 Refills Prov: JEREMY SKELTON 02/24/19 Ondansetron (Ondansetron Odt) 4 Mg Tab.rapdis 4 MG PO Q6H PRN for NAUSEA/VOMITING, #8 TAB 0 Refills Prov: JEREMY SKELTON 02/24/19 JEREMY SKELTON Feb 24, 2019 04:12
[2019-02-24] MEDS ORDERED: cefTRIAXone FOR IV USE 1,000 MG in WATER (STERILE) FOR INJECTION 10 ML IV ONE (04:15)
[2019-02-24 04:28] LABS: ALANINE AMINOTRANSFERASE 9 U/L (0-55); ALBUMIN 4.3 GM/DL (3.2-4.5); ALKALINE PHOSPHATASE 79 U/L (40-136); BILIRUBIN,TOTAL 0.2 MG/DL (0.1-1.0); BUN/CREATININE RATIO 11; CALCIUM 9.8 MG/DL (8.5-10.1); CARBON DIOXIDE 19 MMOL/L (21-32); CHLORIDE 108 MMOL/L (98-107); CREATININE SERUM 0.75 MG/DL (0.60-1.30); GFR ESTIMATED > 60; GLUCOSE 101 MG/DL (70-105); LIPASE 14 U/L (8-78); POTASSIUM 3.8 MMOL/L (3.6-5.0); SODIUM 140 MMOL/L (135-145); TOTAL PROTEIN 8.5 GM/DL (6.4-8.2)
[2019-02-24 04:32] LABS: PROTHROMBIN TIME PATIENT 13.8 SEC (12.2-14.7)
[2019-02-24] MEDS ORDERED: NS 100 ML (IVPB) BAG IV ONE (05:00)
[2019-02-24] MEDS ORDERED: IOHEXOL 350 MG/ML 100 ML (OMNIPAQUE 350) VIAL IV ONE (05:00)
[2019-02-24] MEDS ORDERED: HOLD METFORMIN - RECEIVED CONTRAST 20 ML VIAL IV SCH (05:00)
[2019-02-24 05:24] LABS: BILIRUBIN,URINE NEGATIVE (NEGATIVE); CLARITY,URINE CLEAR; COLOR,URINE YELLOW; GLUCOSE, URINE (UA) NEGATIVE (NEGATIVE); KETONES,URINE NEGATIVE (NEGATIVE); LEUKOCYTE ESTERASE ,URINE NEGATIVE (NEGATIVE); NITRITE,URINE NEGATIVE (NEGATIVE); PH,URINE 7 (5-9); PROTEIN,URINE NEGATIVE (NEGATIVE); UROBILINOGEN,URINE NORMAL (NORMAL)
[2019-02-24 05:33] LABS: BACTERIA,URINE TRACE /HPF; SQUAMOUS EPITHELIAL CELL,UR 0-2 /HPF; WBC,URINE RARE /HPF
[2019-02-24 05:35] LABS: AMPHETAMINE SCREEN, URINE NEGATIVE (NEGATIVE); BARBITURATE SCREEN URINE NEGATIVE (NEGATIVE); BENZODIAZEPINES SCREEN URINE NEGATIVE (NEGATIVE); CANNABINOID SCREEN, URINE NEGATIVE (NEGATIVE); COCAINE SCREEN URINE NEGATIVE (NEGATIVE); METHADONE STAT NEGATIVE (NEGATIVE); METHAMPHETAMINE SCREEN URINE S NEGATIVE (NEGATIVE); OPIATE SCREEN URINE NEGATIVE (NEGATIVE); OXYCODONE STAT NEGATIVE (NEGATIVE); PROPOXYPHENE STAT NEGATIVE (NEGATIVE); TRICYCLIC ANTIDEPRESSANTS SCRE NEGATIVE (NEGATIVE)
[2019-02-24] MEDS ORDERED: ONDA4TAB11 PO (06:21)
[2019-02-24] MEDS ORDERED: PANT20TA3 PO (06:21)
--- NOTE | 2019-02-24 06:32 | Diagnostic Imaging Report ---
PROCEDURE: CT abdomen and pelvis with contrast. TECHNIQUE: Multiple contiguous axial images were obtained through the abdomen and pelvis after administration of intravenous contrast. Auto Exposure Controls were utilized during the CT exam to meet ALARA standards for radiation dose reduction. INDICATION: Upper abdominal pain. History of appendectomy. COMPARISON: 08/05/2013 FINDINGS: Lower chest: The lung bases are clear. No pericardial or pleural effusion. Peritoneum: No free intraperitoneal air or fluid. Liver and biliary system: The liver is normal. Gallbladder is contracted without radiopaque gallstones. No pathologic biliary duct dilatation. Spleen and Pancreas: Spleen is normal. The pancreas enhances normally without mass lesion or peripancreatic inflammatory changes. Adrenals: Normal. tract: The kidneys enhance normally without suspicious mass or obstruction. Urinary bladder is distended without wall thickening. IUD is appropriately positioned within the uterus. Ovaries are physiologic in appearance. GI tract: Stomach is partially filled with fluid and air and there is no wall thickening. No bowel obstruction. No pericolonic inflammatory changes. Appendectomy then performed. Vasculature and Lymph nodes: Normal caliber aorta. No abdominal or pelvic lymphadenopathy. Musculoskeletal: No concerning osseous lesion. IMPRESSION: 1. No acute obstructive or inflammatory process in the abdomen or pelvis. 2. Findings are in agreement with the preliminary report. Dictated by: Dictated on workstation # [id number]
--- NOTE | 2019-02-24 06:41 | Diagnostic Imaging Report ---
CHEST 1 VIEW, AP/PA ONLY Indication: Upper abdominal/lower chest pain. Comparison: 09/29/2015. Findings: No focal airspace disease in the visualized lungs. Please note that the posterior lower lobes are poorly evaluated by portable radiography. No pleural effusion or pneumothorax. Normal cardiomediastinal silhouette. Impression: No acute cardiopulmonary process by portable radiography. Dictated by: Dictated on workstation # [id number]
[2019-02-24 06:51] VITALS: BP 131/96
== END 2019-02-24 06:51 | disposition home or self-care (01) ==
LOC: EDUNIT# 03:40 → ER 03:42
DX: K52.9 Noninfective gastroenteritis and colitis, unspecified (principal); Z90.49 Acquired absence of other specified parts of digestive tract
CPT/HCPCS: 36415; 71045; 74177; 80053; 80306; 81000; 83605; 83690; 84703; 85025; 85610; 85730; 86141; 87040; 96374; 96375

== ENCOUNTER 2019-04-16 22:15 | Emergency (ER) | payer BC, MEDICAID ==
[~2019-04-16] VITALS: Ht 160 cm; Wt 54.5 kg
[~2019-04-16 22:15] MED LIST changes: +ONDA4TAB11 PO; +PANT20TA3 PO
[2019-04-16] MEDS ORDERED: METR-145 (22:31)
[2019-04-16] MEDS ORDERED: NORG1TAB14 (22:31)
[2019-04-16] MEDS ORDERED: LORA0.5T (22:31)
[2019-04-16 22:50] LABS: BILIRUBIN,URINE NEGATIVE (NEGATIVE); CLARITY,URINE SLIGHTLY CLOUDY; COLOR,URINE AMBER; GLUCOSE, URINE (UA) NEGATIVE (NEGATIVE); KETONES,URINE 1+ (NEGATIVE); LEUKOCYTE ESTERASE ,URINE 2+ (NEGATIVE); NITRITE,URINE NEGATIVE (NEGATIVE); PH,URINE 6 (5-9); PROTEIN,URINE 1+ (NEGATIVE); UROBILINOGEN,URINE NORMAL (NORMAL)
[2019-04-16 22:51] LABS: BASOPHILS % (AUTO) 0 % (0-10); EOSINOPHILS # (AUTO) 0.1 10^3/uL (0.0-0.3); EOSINOPHILS % (AUTO) 1 % (0-10); HEMATOCRIT 34 % (35-52); HEMOGLOBIN 10.9 G/DL (11.5-16.0); LYMPHOCYTES # (AUTO) 2.3 X 10^3 (1.0-4.0); LYMPHOCYTES % (AUTO) 18 % (12-44); MEAN CORPUSCULAR HEMOGLOBIN 25 PG (25-34); MEAN CORPUSCULAR HGB CONC 32 G/DL (32-36); MEAN CORPUSCULAR VOLUME 79 FL (80-99); MEAN PLATELET VOLUME 10.4 FL (7.4-10.4); MONOCYTES % (AUTO) 8 % (0-12); NEUTROPHILS # (AUTO) 9.5 X 10^3 (1.8-7.8); NEUTROPHILS % (AUTO) 73 % (42-75); PLATELET COUNT 326 10^3/uL (130-400); RED CELL DISTRIBUTION WIDTH 14.2 % (10.0-14.5)
[2019-04-16 22:59] LABS: BACTERIA,URINE FEW /HPF
[2019-04-16 23:07] LABS: AMPHETAMINE SCREEN, URINE NEGATIVE (NEGATIVE); BARBITURATE SCREEN URINE NEGATIVE (NEGATIVE); BENZODIAZEPINES SCREEN URINE POSITIVE (NEGATIVE); CANNABINOID SCREEN, URINE NEGATIVE (NEGATIVE); COCAINE SCREEN URINE NEGATIVE (NEGATIVE); METHADONE STAT NEGATIVE (NEGATIVE); METHAMPHETAMINE SCREEN URINE S NEGATIVE (NEGATIVE); OPIATE SCREEN URINE NEGATIVE (NEGATIVE); OXYCODONE STAT NEGATIVE (NEGATIVE); PROPOXYPHENE STAT NEGATIVE (NEGATIVE); TRICYCLIC ANTIDEPRESSANTS SCRE NEGATIVE (NEGATIVE)
[2019-04-16 23:11] LABS: ALANINE AMINOTRANSFERASE 7 U/L (0-55); ALBUMIN 4.4 GM/DL (3.2-4.5); ALKALINE PHOSPHATASE 78 U/L (40-136); BILIRUBIN,TOTAL 0.4 MG/DL (0.1-1.0); BUN/CREATININE RATIO 12; CALCIUM 9.1 MG/DL (8.5-10.1); CARBON DIOXIDE 19 MMOL/L (21-32); CHLORIDE 108 MMOL/L (98-107); CREATININE SERUM 0.68 MG/DL (0.60-1.30); GFR ESTIMATED > 60; GLUCOSE 86 MG/DL (70-105); MAGNESIUM 1.8 MG/DL (1.6-2.4); POTASSIUM 3.4 MMOL/L (3.6-5.0); SALICYLATE < 5.0 MG/DL (5.0-20.0); SODIUM 137 MMOL/L (135-145); TOTAL PROTEIN 8.5 GM/DL (6.4-8.2)
[2019-04-16 23:12] LABS: ACETAMINOPHEN < 10 UG/ML (10-30)
[2019-04-16 23:31] LABS: TSH (THYROID ANALYZER) 1.91 UIU/ML (0.35-4.94)
[2019-04-16] MEDS ORDERED: cefTRIAXone 1,000 MG/2.86 ml vial (IM ONLY) ONE (23:35)
[2019-04-16] MEDS ORDERED: RX-HYDROXYZINE PAMOATE 25 MG CAP #4 PO STA (23:38)
[2019-04-16] MEDS ORDERED: CIPR-225 PO (23:44)
[2019-04-16] MEDS ORDERED: METR500T PO (23:44)
[2019-04-16] MEDS ORDERED: LIDOCAINE 1% INJ 20 ML 20 ML VIAL INJ ONE (23:45)
--- NOTE | 2019-04-16 23:45 | ED General ---
General Chief Complaint: Psych/Social Disorder Stated Complaint: ANXIETY Nursing Triage Note: ANXIOUS Nursing Sepsis Screen: No Definite Risk Allergies and Home Medications Allergies Coded Allergies: No Known Drug Allergies (Unverified , 02/29/16) Past Kxljzau-Tkgpwm-Utlnwo Hx Patient Social History Alcohol Use: Denies Use Recreational Drug Use: No Smoking Status: Never a Smoker 2nd Hand Smoke Exposure: No Recent Foreign Travel: No Contact w/Someone Who Travel: No Recent Infectious Disease Expo: No Recent Hopitalizations: No Physical Abuse: No Sexual Abuse: No Mistreated: No Fear: No Immunizations Up To Date Tetanus Booster (TDap): Unknown PED Vaccines UTD: Yes Date of Influenza Vaccine: Jun 16, 2016 Seasonal Allergies Seasonal Allergies: No Past Medical History Surgeries: Yes Appendectomy Respiratory: No Cardiac: No Neurological: No : No Reproductive Disorders: No Female Reproductive Disorders: Denies Sexually Transmitted Disease: No HIV/AIDS: No Genitourinary: No Gastrointestinal: Yes (DYSPHAGIA) Gastroesophageal Reflux Musculoskeletal: No Endocrine: Yes (THYROID NODULE) HEENT: No Cancer: No Psychosocial: Yes Anxiety Integumentary: No Blood Disorders: No Adverse Reaction/Blood Tranf: No Family Medical History Family history: Diabetes mellitus Paternal Grandmother No Family History of: AIDS Abdominal aortic aneurysm Abdominal aortic aneurysm Acute appendicitis [place]'s disease Shaggy's disease Alcoholism Alcoholism Alzheimer's disease Aphasia Aphasia Arthritis Asthma Cancer Cancer of colon Cancer of mouth Cardiovascular disease Cataract Cataracts Chest pain Colon cancer Completed stroke Congenital disease Congenital heart disease Congenital heart disease Congestive heart failure Coronary thrombosis Cystic fibrosis Cystic fibrosis Deafness or hearing loss Dementia Dementia Diabetes mellitus Drug abuse Dysphagia Dysphasia Family history: Allergy Family history: Alzheimer's disease Family history: Arthritis Family history: Asthma Family history: Breast disease Family history: Cardiovascular disease Family history: Coronary thrombosis Family history: Gastrointestinal disease Family history: Glaucoma Family history: Hypertension Family history: Osteoporosis Family history: Thyroid disorder Fibrocystic disease of breast Gastroenteritis Glaucoma Headache Headache disorder Hearing loss Heart disease Hereditary disease History of - anemia History of - disorder History of - respiratory disease History of drug abuse Human immunodeficiency virus (HIV) seropositivity Hypercholesterolemia Hypercholesterolemia Hypertension Infertile Infertility Kidney disease Kidney disease Malignant neoplasm of lung Myocardial infarction Myocardial infarction Neoplasm Not obtainable due to adoption Osteoporosis Parkinson's disease Parkinson's disease Prostate cancer Psychosocial problem Psychotic disorder Respiratory disorder Right lower quadrant pain Seizure disorder Seizure disorder Severe allergy Stroke Thyroid disease Tuberculosis Tuberculosis Visual disorder Visual impairment No Pertinent Family Hx Physical Exam Vital Signs Vital Signs - First Documented 04/16/19 22:25 Temp 36.6 Pulse 98 Resp 18 B/P (MAP) 123/97 (106) Pulse Ox 100 O2 Delivery Room Air Capillary Refill : Less Than 3 Seconds Height, Weight, BMI Height: 5'3.00" Weight: 125lbs. 0.0oz. 56.347903bw; 21.00 BMI Method:Stated Progress/Results/Core Measures Suspected Sepsis Recent Fever Within 48 Hours: No Infection Criteria Present: None New/Unexplained Altered Menta: No Sepsis Screen: No Definite Risk SIRS Temperature: Pulse: 98 Respiratory Rate: 18 Laboratory Tests 04/16/19 22:45: White Blood Count 13.0H Blood Pressure 123 /97 Mean: 106 Laboratory Tests 04/16/19 22:45: Creatinine 0.68, Platelet Count 326, Total Bilirubin 0.4 Results/Orders Lab Results Laboratory Tests Test 04/16/19 22:38 04/16/19 22:45 Range/Units Urine Color DEQUAN H Urine Clarity SLIGHTLY CLOUDY Urine pH 6 5-9 Urine Specific Ivor 1.015 L 1.016-1.022 Urine Protein 1+ H NEGATIVE Urine Glucose (UA) NEGATIVE NEGATIVE Urine Ketones 1+ H NEGATIVE Urine Nitrite NEGATIVE NEGATIVE Urine Bilirubin NEGATIVE NEGATIVE Urine Urobilinogen NORMAL NORMAL MG/DL Urine Leukocyte Esterase 2+ H NEGATIVE Urine RBC (Auto) 2+ H NEGATIVE Urine RBC 5-10 H /HPF Urine WBC 5-10 H /HPF Urine Crystals NONE /LPF Urine Bacteria FEW H /HPF Urine Casts NONE /LPF Urine Mucus SMALL H /LPF Urine Culture Indicated YES Urine Opiates Screen NEGATIVE NEGATIVE Urine Oxycodone Screen NEGATIVE NEGATIVE Urine Methadone Screen NEGATIVE NEGATIVE Urine Propoxyphene Screen NEGATIVE NEGATIVE Urine Barbiturates Screen NEGATIVE NEGATIVE Ur Tricyclic Antidepressants Screen NEGATIVE NEGATIVE Urine Phencyclidine Screen NEGATIVE NEGATIVE Urine Amphetamines Screen NEGATIVE NEGATIVE Urine Methamphetamines Screen NEGATIVE NEGATIVE Urine Benzodiazepines Screen POSITIVE H NEGATIVE Urine Cocaine Screen NEGATIVE NEGATIVE Urine Cannabinoids Screen NEGATIVE NEGATIVE White Blood Count 13.0 H 4.3-11.0 10^3/uL Red Blood Count 4.29 L 4.35-5.85 10^6/uL Hemoglobin 10.9 L 11.5-16.0 G/DL Hematocrit 34 L 35-52 % Mean Corpuscular Volume 79 L 80-99 FL Mean Corpuscular Hemoglobin 25 25-34 PG Mean Corpuscular Hemoglobin Concent 32 32-36 G/DL Red Cell Distribution Width 14.2 10.0-14.5 % Platelet Count 326 130-400 10^3/uL Mean Platelet Volume 10.4 7.4-10.4 FL Neutrophils (%) (Auto) 73 42-75 % Lymphocytes (%) (Auto) 18 12-44 % Monocytes (%) (Auto) 8 0-12 % Eosinophils (%) (Auto) 1 0-10 % Basophils (%) (Auto) 0 0-10 % Neutrophils # (Auto) 9.5 H 1.8-7.8 X 10^3 Lymphocytes # (Auto) 2.3 1.0-4.0 X 10^3 Monocytes # (Auto) 1.0 0.0-1.0 X 10^3 Eosinophils # (Auto) 0.1 0.0-0.3 10^3/uL Basophils # (Auto) 0.0 0.0-0.1 10^3/uL Sodium Level 137 135-145 MMOL/L Potassium Level 3.4 L 3.6-5.0 MMOL/L Chloride Level 108 H 98-107 MMOL/L Carbon Dioxide Level 19 L 21-32 MMOL/L Anion Gap 10 5-14 MMOL/L Blood Urea Nitrogen 8 7-18 MG/DL Creatinine 0.68 0.60-1.30 MG/DL Estimat Glomerular Filtration Rate > 60 BUN/Creatinine Ratio 12 Glucose Level 86 70-105 MG/DL Calcium Level 9.1 8.5-10.1 MG/DL Corrected Calcium 8.8 8.5-10.1 MG/DL Magnesium Level 1.8 1.6-2.4 MG/DL Total Bilirubin 0.4 0.1-1.0 MG/DL Aspartate Amino Transf (AST/SGOT) 17 5-34 U/L Alanine Aminotransferase (ALT/SGPT) 7 0-55 U/L Alkaline Phosphatase 78 40-136 U/L Total Protein 8.5 H 6.4-8.2 GM/DL Albumin 4.4 3.2-4.5 GM/DL TSH [facility] Testing 1.91 0.35-4.94 UIU/ML Serum Test, Qualitative NEGATIVE NEGATIVE Salicylates Level < 5.0 L 5.0-20.0 MG/DL Acetaminophen Level < 10 L 10-30 UG/ML Serum Alcohol < 10 <10 MG/DL My Orders Orders - ABBIE GALAVIZ DO Acetaminophen (04/16/19 22:39) Alcohol (04/16/19 22:39) Cbc With Automated Diff (04/16/19 22:39) Comprehensive Metabolic Panel (04/16/19 22:39) Drug Screen Stat (Urine) (04/16/19 22:39) Hcg,Qualitative Serum (04/16/19 22:39) Magnesium (04/16/19 22:39) Salicylate (04/16/19 22:39) Thyroid Analyzer (04/16/19 22:39) Ua Culture If Indicated (04/16/19 22:39) Urine Culture (04/16/19 22:38) Rx-Hydroxyzine Pamoate (Rx-Vistaril) (04/16/19 23:38) Ciprofloxacin Tablet (Cipro Tablet) (04/16/19 23:45) Ceftriaxone For Im Use (Rocephin For Im (04/17/19 09:00) Lidocaine 1% Inj 20 Ml (Xylocaine 1% Inj (04/16/19 23:45) Vital Signs/I&O 04/16/19 22:25 Temp 36.6 Pulse 98 Resp 18 B/P (MAP) 123/97 (106) Pulse Ox 100 O2 Delivery Room Air Capillary Refill : Less Than 3 Seconds Blood Pressure Mean: 106 Departure Impression Primary Impression: Anxiety Additional Impressions: Urinary tract infection Chlamydia infection Bacterial vaginosis Disposition: 01 HOME, SELF-CARE Condition: Stable Departure-Patient Inst. Referrals: VICKY MORRISON CHAD C MD (PCP/Family) Primary Care Physician Patient Instructions: Anxiety, Adult (DC), Bacterial Vaginosis (DC), Chlamydia (DC), Urinary Tract Infection, Adult (DC) Add. Discharge Instructions: TAKE YOUR ATIVAN --1 MG 3 TIMES A DAY, NEEDED FOR ANXIETY FOLLOW UP WITH DR. MORRISON IN 1 WEEK TO RECHECK INFECTION FOLLOW UP WITH DR. SEXTON THIS WEEK FOR FURTHER CARE OF YOUR ANXIETY All discharge instructions reviewed with patient and/or family. Voiced understanding. Scripts Metronidazole (Flagyl) 500 Mg Tablet 500 MG PO QID for FOR INFECTION, #20 TAB Prov: ABBIE GALAVIZ DO 04/16/19 Ciprofloxacin HCl (Cipro) 500 Mg Tablet 500 MG PO BID, #20 TAB Prov: ABBIE GALAVIZ DO 04/16/19 ABBIE GALAVIZ DO Apr 16, 2019 23:45
[2019-04-16] MEDS: CIPROFLOXACIN 500 MG (CIPRO) TABLET PO SCH ×2 (23:47→23:54)
[2019-04-16 23:50] VITALS: BP 125/103
[2019-04-17] MEDS ORDERED: cefTRIAXone 1,000 MG/2.86 ml vial (IM ONLY) IM SCH (09:00)
== END 2019-04-16 23:55 | disposition home or self-care (01) ==
LOC: EDUNIT# 22:15 → ER 22:16
DX: F41.9 Anxiety disorder, unspecified (principal); A74.9 Chlamydial infection, unspecified; N76.0 Acute vaginitis; B96.89 Other specified bacterial agents as the cause of diseases classified elsewhere; K21.9 Gastro-esophageal reflux disease without esophagitis; Z90.49 Acquired absence of other specified parts of digestive tract
CPT/HCPCS: 36415; 80053; 80306; 80320; 80329; 81000; 83735; 84443; 84703; 85025; 87088

== ENCOUNTER 2019-10-26 12:19 | Emergency (ER) | payer BC, MEDICAID ==
[~2019-10-26] VITALS: Ht 160 cm; Wt 54.0 kg
[~2019-10-26 12:19] MED LIST changes: +CIPR-225 PO; +LORA0.5T; +METR-145; +METR500T PO; +NORG1TAB14
--- OUTSIDE RECORDS SUMMARY | 2019-10-26 12:25 | XMS REPORT ---
Author Author Bella CARR [facility] Address [address] [place] [address] Care Team Providers Care Biomedical Engineering Internship Name Role Phone SHAWN CARR Unavailable PROBLEMS Type Condition ICD9-CM Code [id number] Code Onset Dates Condition S tatus SNOMED Code Problem Gastroesophageal reflux disease with esophagitis K 21.0 Active [id number] ALLERGIES No Information ENCOUNTERS Encounter Location Date Diagnosis [facility] [address] [id number] [address] [place] [phone] Feb, Gastroesophageal reflux dise ase with esophagitis K21.0 [facility] [address] [id number] [address] [place] [phone] Dec, School physical exam Z02.0 [facility] [address] [id number] [address] [place] [id number] Oct, Encounter for immunization Z 23 [facility] [address] [id number] [address] [place] [address] [id number] Aug, Encounter for immunization Z 23 [facility] [address] [id number] [address] [place] [address] [phone] Aug, Encounter for immunization Z 23 [facility] [address] [id number] [address] [place] [address] [id number] Jul, Visit for TB skin test Z11.1 and Screening for tuberculosis Z11.1 [facility] [address] [id number] [address] [place] [address] [id number] Jul, Visit for TB skin test Z11.1 and Screening for tuberculosis Z11.1 [facility] [address] [id number] [address] [place] [phone] Jun, [facility] [address] [id number] [place] [address] [id number] Jun, Acute non-recurrent maxillar y sinusitis J01.00 [facility] [address] [id number] [place] [address] Jul, [facility] [address] [id number] [address] [place] [phone] Feb, [facility] [address] [id number] [address] [place] [phone] Feb, [facility] [address] [id number] [address] [place] [phone] Feb, [facility] [address] [id number] [address] [place] [phone] Feb, [facility] [address] [id number] [address] [place] [phone] Feb, Encounter for PPD test V74.1 [facility] [address] [id number] [address] [place] [phone] Feb, Encounter for PPD test V74.1 [facility] [address] [id number] [address] [place] [phone] Jan, [facility] [address] [id number] [address] [place] [phone] Jan, [facility] [address] [id number] [address] [place] [phone] Jan, [facility] [address] [id number] [address] [place] [phone] Dec, [facility] [address] [id number] [address] [place] [phone] Dec, [facility] [address] [id number] [address] [place] [phone] Sep, [facility] [address] [id number] [address] [place] [phone] Sep, [facility] [address] [id number] [address] [place] [address], [place] [address] Aug, [facility] [address] [id number] [address] [place] [address], [place] [phone] Aug, [facility] [address] [id number] [address] [place] [address], [place] [address] Jul, [facility] [address] [id number] [address] [place] [address], [place] [address] Jul, [facility] [address] [id number] [address] [place] [address], [place] [phone] Jul, [facility] [address] [id number] [address] [place] [address], [place] [address] Jul, [facility] [address] [id number] [address] [place] [address], [place] [address] Jul, [facility] [address] [id number] [address] [place] [address], [place] [address] Jul, [facility] [address] [id number] [address] [place] [address], [place] [address] Jul, [facility] [address] [id number] [address] [place] [address], [place] [address] Jul, [facility] [address] [id number] [address] [place] [address], [place] [address] Jun, [facility] [address] [id number] [address] [place] [phone] Jun, [facility] [address] [id number] [address] [place] [address], [place] [address] May, [facility] [address] [id number] [address] [place] [address], [place] [address] May, [facility] [address] [id number] [address] [place] [address], [place] [address] 14 Apr, 2014 [facility] [address] [id number] [address] [place] [phone] Apr, [facility] [address] [id number] [address] [place] [phone] Apr, [facility] [address] [id number] [address] [place] [phone] Apr, [facility] [address] [id number] [address] [place] [phone] Mar, [facility] [address] [id number] [address] [place] [phone] Mar, [facility] [address] [id number] [address] [place] [phone] Feb, [facility] [address] [id number] [address] [place] [phone] Feb, [facility] [address] [id number] [address] [place] [phone] Feb, [facility] [address] [id number] [address] [place] [phone] Feb, [facility] [address] [id number] [address] [place] [phone] Jan, [facility] [address] [id number] [address] [place] [phone] Jan, [facility] [address] [id number] [address] [place] [phone] Sep, [facility] [address] [id number] [address] [place] [phone] Sep, [facility] [address] [id number] [address] [place] [phone] Feb, [facility] [address] [id number] [address] [place] [phone] Feb, IMMUNIZATIONS No Known Immunizations SOCIAL HISTORY Never Assessed REASON FOR VISIT PLAN OF CARE VITAL SIGNS MEDICATIONS No Known Medications RESULTS No Results PROCEDURES No Known procedures INSTRUCTIONS MEDICATIONS ADMINISTERED No Known Medications MEDICAL (GENERAL) HISTORY Type Description Date Surgical History apendectomy 2014
--- OUTSIDE RECORDS SUMMARY | 2019-10-26 12:25 | XMS REPORT ---
Author Author Bella CARR Organization [facility] Address [address] [place] [address] Care Team Providers Care Pump Technician Name Role Phone SHAWN CARR Unavailable PROBLEMS Type Condition ICD9-CM Code KPL08-PE Code Onset Dates Condition S tatus SNOMED Code Problem Gastroesophageal reflux disease with esophagitis K 21.0 Active [id number] ALLERGIES No Information ENCOUNTERS Encounter Location Date Diagnosis [facility] [address] [id number] [address] [place] [phone] Feb, Gastroesophageal reflux dise ase with esophagitis K21.0 [facility] [address] [id number] [address] [place] [phone] Dec, School physical exam Z02.0 [facility] [address] [id number] [address] [place] [address] [id number] Oct, Encounter for immunization Z 23 [facility] [address] [id number] [address] [place] [address] [id number] Aug, Encounter for immunization Z 23 [facility] [address] [id number] [address] [place] [address] [id number] Aug, Encounter for immunization Z 23 [facility] [address] [id number] [address] [place] [address] [id number] Jul, Visit for TB skin test Z11.1 and Screening for tuberculosis Z11.1 [facility] [address] [id number] [address] [place] [address] [id number] Jul, Visit for TB skin test Z11.1 and Screening for tuberculosis Z11.1 [facility] [address] [id number] [address] [place] [phone] Jun, [facility] [address] [id number] [place] [address] [id number] Jun, Acute non-recurrent maxillar y sinusitis J01.00 [facility] A[facility]IR[facility] U[address] [id number] [place] [address] Jul, [facility] [address] [id number] [address] [place] [phone] Feb, [facility] [address] [id number] [address] [place] [phone] Feb, [facility] [address] [id number] [address] [place] [phone] Feb, [facility] [address] [id number] [address] [place] [phone] Feb, [facility] [address] [id number] [address] [place] [phone] Feb, Encounter for PPD test V74.1 [facility] [address] [id number] [address] [place] [phone] Feb, Encounter for PPD test V74.1 [facility] [address] [id number] [address] [place] [phone] Jan, [facility] [address] [id number] [address] [place] [phone] Jan, [facility] [address] [id number] [address] [place] [phone] Jan, [facility] [address] [id number] [address] [place] [phone] Dec, [facility] [address] [id number] [address] [place] [phone] Dec, [facility] [address] [id number] [address] [place] [phone] Sep, [facility] [address] [id number] [address] [place] [phone] Sep, [facility] [address] [id number] [address] [place] [address], [place] [address] Aug, [facility] [address] [id number] [address] [place] [address], [place] [address] Aug, [facility] [address] [id number] [address] [place] [address], [place] [address] Jul, [facility] [address] [id number] [address] [place] [address], [place] [address] Jul, [facility] [address] [id number] [address] [place] [address], [place] [address] Jul, [facility] [address] [id number] [address] [place] [address], [place] [address] Jul, [facility] [address] [id number] [address] [place] [address], [place] [address] Jul, [facility] [address] [id number] [address] [place] [address], [place] [address] Jul, [facility] [address] [id number] [address] [place] [address], [place] [address] Jul, [facility] [address] [id number] [address] [place] [address], [place] [address] Jul, [facility] [address] [id number] [address] [place] [address], [place] [address] Jun, [facility] [address] [id number] [address] [place] [phone] Jun, [facility] [address] [id number] [address] [place] [address], [place] [phone] May, [facility] [address] [id number] [address] [place] [address], [place] [address] May, [facility] [address] [id number] [address] [place] [address], [place] [address] 14 Apr, 2014 [facility] [address] [id number] [address] [place] [phone] Apr, [facility] [address] [id number] [address] [place] [phone] Apr, [facility] [address] [id number] [address] [place] [phone] Apr, [facility] [address] [id number] [address] [place] [phone] Mar, [facility] [address] [id number] [address] [place] [phone] Mar, [facility] [address] [id number] [address] [place] [phone] Feb, [facility] [address] [id number] [address] [place] [phone] Feb, [facility] [address] [id number] [address] [place] [phone] Feb, [facility] [address] [id number] [address] [place] [phone] Feb, [facility] [address] [id number] [address] [place] [phone] Jan, [facility] [address] [id number] [address] [place] [phone] Jan, [facility] [address] [id number] [address] [place] [phone] Sep, [facility] [address] [id number] [address] [place] [phone] Sep, [facility] [address] [id number] [address] [place] [phone] Feb, [facility] [address] [id number] [address] [place] [phone] Feb, IMMUNIZATIONS No Known Immunizations SOCIAL HISTORY Never Assessed REASON FOR VISIT PLAN OF CARE VITAL SIGNS MEDICATIONS No Known Medications RESULTS No Results PROCEDURES No Known procedures INSTRUCTIONS MEDICATIONS ADMINISTERED No Known Medications MEDICAL (GENERAL) HISTORY Type Description Date Surgical History apendectomy 2014
--- OUTSIDE RECORDS SUMMARY | 2019-10-26 12:25 | XMS REPORT ---
Author Author Bella OBRIEN Organization [facility] Address [address] [place] [address] Care Team Providers Care Residence Leasing Agent Name Role Phone ROSEMARY OBRIEN Unavailable PROBLEMS Type Condition ICD9-CM Code AOZ46-XN Code Onset Dates Condition S tatus SNOMED Code Problem Gastroesophageal reflux disease with esophagitis K 21.0 Active [id number] ALLERGIES No Information ENCOUNTERS Encounter Location Date Diagnosis [facility] [address] [id number] [address] [place] [phone] Feb, Gastroesophageal reflux dise ase with esophagitis K21.0 [facility] [address] [id number] [address] [place] [phone] Dec, School physical exam Z02.0 [facility] [address] [id number] [address] [place] [address] [id number] Oct, Encounter for immunization Z 23 [facility] [address] [id number] [address] [place] [address] [id number] Aug, Encounter for immunization Z 23 [facility] [address] [id number] [address] [place] [address] [id number] Aug, Encounter for immunization Z 23 [facility] [address] [id number] [address] [place] [address] [id number] Jul, Visit for TB skin test Z11.1 and Screening for tuberculosis Z11.1 [facility] [address] [id number] [address] [place] [address] [id number] Jul, Visit for TB skin test Z11.1 and Screening for tuberculosis Z11.1 [facility] [address] [id number] [address] [place] [phone] Jun, [facility] [address] [id number] [place] [address] [id number] Jun, Acute non-recurrent maxillar y sinusitis J01.00 [facility] [address] [id number] [place] [address] Jul, [facility] [address] [id number] [address] [place] [phone] Feb, [facility] [address] [id number] [address] [place] [phone] Feb, [facility] [address] [id number] [address] [place] [phone] Feb, [facility] [address] [id number] [address] [place] [phone] Feb, [facility] [address] [id number] [address] [place] [phone] Feb, Encounter for PPD test V74.1 [facility] [address] [id number] [address] [place] [phone] Feb, Encounter for PPD test V74.1 [facility] [address] [id number] [address] [place] [phone] Jan, [facility] [address] [id number] [address] [place] [phone] Jan, [facility] [address] [id number] [address] [place] [phone] Jan, [facility] [address] [id number] [address] [place] [phone] Dec, [facility] [address] [id number] [address] [place] [phone] Dec, [facility] [address] [id number] [address] [place] [phone] Sep, [facility] [address] [id number] [address] [place] [phone] Sep, [facility] [address] [id number] [address] [place] [address], [place] [address] Aug, [facility] [address] [id number] [address] [place] [address], [place] [address] Aug, [facility] [address] [id number] [address] [place] [address], [place] [address] Jul, [facility] [address] [id number] [address] [place] [address], [place] [address] Jul, [facility] [address] [id number] [address] [place] [address], [place] [address] Jul, [facility] [address] [id number] [address] [place] [address], [place] [address] Jul, [facility] [address] [id number] [address] [place] [address], [place] [address] Jul, [facility] [address] [id number] [address] [place] [address], [place] [address] Jul, [facility] [address] [id number] [address] [place] [address], [place] [address] Jul, [facility] [address] [id number] [address] [place] [address], [place] [address] Jul, [facility] [address] [id number] [address] [place] [address], [place] [address] Jun, [facility] [address] [id number] [address] [place] [phone] Jun, [facility] [address] [id number] [address] [place] [address], [place] [address] May, [facility] [address] [id number] [address] [place] [address], [place] [address] May, [facility] [address] [id number] [address] [place] [address], [place] [address] 14 Apr, 2014 [facility] [address] [id number] [address] [place] [phone] 14 Apr, 2014 [facility] [address] [id number] [address] [place] [phone] Apr, [facility] [address] [id number] [address] [place] [phone] Apr, [facility] [address] [id number] [address] [place] [phone] Mar, [facility] [address] [id number] [address] [place] [phone] Mar, [facility] [address] [id number] [address] [place] [phone] Feb, [facility] [address] [id number] [address] [place] [phone] Feb, [facility] [address] [id number] [address] [place] [phone] Feb, [facility] [address] [id number] [address] [place] [phone] Feb, [facility] [address] [id number] [address] [place] [phone] Jan, [facility] [address] [id number] [address] [place] [phone] Jan, [facility] [address] [id number] [address] [place] [phone] Sep, [facility] [address] [id number] [address] [place] [phone] Sep, [facility] [address] [id number] [address] [place] [phone] Feb, [facility] [address] [id number] [address] [place] [phone] Feb, IMMUNIZATIONS No Known Immunizations SOCIAL HISTORY Never Assessed REASON FOR VISIT PLAN OF CARE VITAL SIGNS MEDICATIONS No Known Medications RESULTS No Results PROCEDURES No Known procedures INSTRUCTIONS MEDICATIONS ADMINISTERED No Known Medications MEDICAL (GENERAL) HISTORY Type Description Date Surgical History apendectomy 2013
--- OUTSIDE RECORDS SUMMARY | 2019-10-26 12:25 | XMS REPORT ---
Author Author Bella CARR Organization [facility] Address [address] [place] [address] Care Team Providers Care Adult Health Clinical Nurse Specialist Name Role Phone SHAWN CARR Unavailable PROBLEMS Type Condition ICD9-CM Code PSF33-TI Code Onset Dates Condition S tatus SNOMED Code Problem Gastroesophageal reflux disease with esophagitis K 21.0 Active [id number] ALLERGIES No Information ENCOUNTERS Encounter Location Date Diagnosis [facility] [address] [id number] [address] [place] [phone] Feb, Gastroesophageal reflux dise ase with esophagitis K21.0 [facility] [address] [id number] [address] [place] [phone] Dec, School physical exam Z02.0 [facility] [address] [id number] [address] [place] [address] [id number] Oct, Encounter for immunization Z 23 [facility] [address] [id number] [address] [place] [address] [id number] Aug, Encounter for immunization Z 23 [facility] [address] [id number] [address] [place] [address] [id number] Aug, Encounter for immunization Z 23 [facility] [address] [id number] [address] [place] [address] [id number] Jul, Visit for TB skin test Z11.1 and Screening for tuberculosis Z11.1 [facility] [address] [id number] [address] [place] [address] [id number] Jul, Visit for TB skin test Z11.1 and Screening for tuberculosis Z11.1 [facility] [address] [id number] [address] [place] [phone] Jun, [facility] [address] [id number] [place] [address] [id number] Jun, Acute non-recurrent maxillar y sinusitis J01.00 [facility] [address] [id number] [place] [address] Jul, [facility] [address] [id number] [address] [place] [phone] Feb, [facility] [address] [id number] [address] [place] [phone] Feb, [facility] [address] [id number] [address] [place] [phone] Feb, [facility] [address] [id number] [address] [place] [phone] Feb, [facility] [address] [id number] [address] [place] [phone] Feb, Encounter for PPD test V74.1 [facility] [address] [id number] [address] [place] [phone] Feb, Encounter for PPD test V74.1 [facility] [address] [id number] [address] [place] [phone] Jan, [facility] [address] [id number] [address] [place] [phone] Jan, [facility] [address] [id number] [address] [place] [phone] Jan, [facility] [address] [id number] [address] [place] [phone] Dec, [facility] [address] [id number] [address] [place] [phone] Dec, [facility] [address] [id number] [address] [place] [phone] Sep, [facility] [address] [id number] [address] [place] [phone] Sep, [facility] [address] [id number] [address] [place] [address], [place] [address] Aug, [facility] [address] [id number] [address] [place] [address], [place] [phone] Aug, [facility] [address] [id number] [address] [place] [address], [place] [phone] Jul, [facility] [address] [id number] [address] [place] [address], [place] [address] Jul, [facility] [address] [id number] [address] [place] [address], [place] [address] Jul, [facility] [address] [id number] [address] [place] [address], [place] [phone] Jul, [facility] [address] [id number] [address] [place] [address], [place] [phone] Jul, [facility] [address] [id number] [address] [place] [address], [place] [phone] Jul, [facility] [address] [id number] [address] [place] [address], [place] [phone] Jul, [facility] [address] [id number] [address] [place] [address], [place] [phone] Jul, [facility] [address] [id number] [address] [place] [address], [place] [phone] Jun, [facility] [address] [id number] [address] [place] [phone] Jun, [facility] [address] [id number] [address] [place] [address], [place] [phone] May, [facility] [address] [id number] [address] [place] [address], [place] [address] May, [facility] [address] [id number] [address] [place] [address], [place] [phone] 14 Apr, 2014 [facility] [address] [id number] [address] [place] [phone] Apr, [facility] [address] [id number] [address] [place] [phone] Apr, [facility] [address] [id number] [address] [place] [phone] Apr, [facility] [address] [id number] [address] [place] [phone] Mar, [facility] [address] [id number] [address] [place] [phone] Mar, [facility] [address] [id number] [address] [place] [phone] Feb, [facility] [address] [id number] [address] [place] [phone] Feb, [facility] [address] [id number] [address] [place] [phone] Feb, [facility] [address] [id number] [address] [place] [phone] Feb, [facility] [address] [id number] [address] [place] [phone] Jan, [facility] [address] [id number] [address] [place] [phone] Jan, [facility] [address] [id number] [address] [place] [phone] Sep, [facility] [address] [id number] [address] [place] [phone] Sep, [facility] [address] [id number] [address] [place] [id number] Feb, [facility] [address] [id number] [address] [place] [phone] Feb, IMMUNIZATIONS No Known Immunizations SOCIAL HISTORY Never Assessed REASON FOR VISIT PLAN OF CARE VITAL SIGNS MEDICATIONS No Known Medications RESULTS No Results PROCEDURES No Known procedures INSTRUCTIONS MEDICATIONS ADMINISTERED No Known Medications MEDICAL (GENERAL) HISTORY Type Description Date Surgical History apendectomy 2014
--- OUTSIDE RECORDS SUMMARY | 2019-10-26 12:25 | XMS REPORT ---
Author Author Bella CARR Organization [facility] Address [address] [place] [address] Care Team Providers Care Cooker Helper Name Role Phone SHAWN CARR Unavailable PROBLEMS Type Condition ICD9-CM Code SGB09-JH Code Onset Dates Condition S tatus SNOMED Code Problem Gastroesophageal reflux disease with esophagitis K 21.0 Active [id number] ALLERGIES No Information ENCOUNTERS Encounter Location Date Diagnosis [facility] [address] [id number] [address] [place] [phone] Feb, Gastroesophageal reflux dise ase with esophagitis K21.0 [facility] [address] [id number] [address] [place] [phone] Dec, School physical exam Z02.0 [facility] [address] [id number] [address] [place] [address] [id number] Oct, Encounter for immunization Z 23 [facility] [address] [id number] [address] [place] [address] [id number] Aug, Encounter for immunization Z 23 [facility] [address] [id number] [address] [place] [address] [id number] Aug, Encounter for immunization Z 23 [facility] [address] [id number] [address] [place] [address] [id number] Jul, Visit for TB skin test Z11.1 and Screening for tuberculosis Z11.1 [facility] [address] [id number] [address] [place] [address] [id number] Jul, Visit for TB skin test Z11.1 and Screening for tuberculosis Z11.1 [facility] [address] [id number] [address] [place] [phone] Jun, [facility] [address] [id number] [place] [address] [id number] Jun, Acute non-recurrent maxillar y sinusitis J01.00 [facility] [address] [id number] [place] [address] Jul, [facility] [address] [id number] [address] [place] [phone] Feb, [facility] [address] [id number] [address] [place] [phone] Feb, [facility] [address] [id number] [address] [place] [phone] Feb, [facility] [address] [id number] [address] [place] [phone] Feb, [facility] [address] [id number] [address] [place] [phone] Feb, Encounter for PPD test V74.1 [facility] [address] [id number] [address] [place] [phone] Feb, Encounter for PPD test V74.1 [facility] [address] [id number] [address] [place] [phone] Jan, [facility] [address] [id number] [address] [place] [phone] Jan, [facility] [address] [id number] [address] [place] [phone] Jan, [facility] [address] [id number] [address] [place] [phone] Dec, [facility] [address] [id number] [address] [place] [phone] Dec, [facility] [address] [id number] [address] [place] [id number] Sep, [facility] [address] [id number] [address] [place] [phone] Sep, [facility] [address] [id number] [address] [place] [address], [place] [address] Aug, [facility] [address] [id number] [address] [place] [address], [place] [address] Aug, [facility] [address] [id number] [address] [place] [address], [place] [address] Jul, [facility] [address] [id number] [address] [place] [address], [place] [address] Jul, [facility] [address] [id number] [address] [place] [address], [place] [address] Jul, [facility] [address] [id number] [address] [place] [address], [place] [address] Jul, [facility] [address] [id number] [address] [place] [address], [place] [address] Jul, [facility] [address] [id number] [address] [place] [address], [place] [address] Jul, [facility] [address] [id number] [address] [place] [address], [place] [address] Jul, [facility] [address] [id number] [address] [place] [address], [place] [address] Jul, [facility] [address] [id number] [address] [place] [address], [place] [address] Jun, [facility] [address] [id number] [address] [place] [phone] Jun, [facility] [address] [id number] [address] [place] [address], [place] [address] May, [facility] [address] [id number] [address] [place] [address], [place] [address] May, [facility] [address] [id number] [address] [place] [address], [place] [address] 14 Apr, 2014 [facility] [address] [id number] [address] [place] [phone] Apr, [facility] [address] [id number] [address] [place] [id number] Apr, [facility] [address] [id number] [address] [place] [phone] Apr, [facility] [address] [id number] [address] [place] [phone] Mar, [facility] [address] [id number] [address] [place] [phone] Mar, [facility] [address] [id number] [address] [place] [phone] Feb, [facility] [address] [id number] [address] [place] [phone] Feb, [facility] [address] [id number] [address] [place] [phone] Feb, [facility] [address] [id number] [address] [place] [phone] Feb, [facility] [address] [id number] [address] [place] [phone] Jan, [facility] [address] [id number] [address] [place] [id number] Jan, [facility] [address] [id number] [address] [place] [id number] Sep, [facility] [address] [id number] [address] [place] [id number] Sep, [facility] [address] [id number] [address] [place] [phone] Feb, [facility] [address] [id number] [address] [place] [id number] Feb, IMMUNIZATIONS No Known Immunizations SOCIAL HISTORY Never Assessed REASON FOR VISIT PLAN OF CARE VITAL SIGNS MEDICATIONS No Known Medications RESULTS No Results PROCEDURES No Known procedures INSTRUCTIONS MEDICATIONS ADMINISTERED No Known Medications MEDICAL (GENERAL) HISTORY Type Description Date Surgical History apendectomy 2014
--- OUTSIDE RECORDS SUMMARY | 2019-10-26 12:25 | XMS REPORT ---
Author Author Bella CARR Organization [facility] Address [address] [place] [address] Care Team Providers Care Accounts Payable Specialist Name Role Phone SHAWN CARR Unavailable PROBLEMS Type Condition ICD9-CM Code ALK37-ZG Code Onset Dates Condition S tatus SNOMED Code Problem Gastroesophageal reflux disease with esophagitis K 21.0 Active [id number] ALLERGIES No Information ENCOUNTERS Encounter Location Date Diagnosis [facility] [address] [id number] [address] [place] [phone] Feb, Gastroesophageal reflux dise ase with esophagitis K21.0 [facility] [address] [id number] [address] [place] [phone] Dec, School physical exam Z02.0 [facility] [address] [id number] [address] [place] [id number] Oct, Encounter for immunization Z 23 [facility] [address] [id number] [address] [place] [address] [id number] Aug, Encounter for immunization Z 23 [facility] [address] [id number] [address] [place] [address] [id number] Aug, Encounter for immunization Z 23 [facility] [address] [id number] [address] [place] [address] [id number] Jul, Visit for TB skin test Z11.1 and Screening for tuberculosis Z11.1 [facility] [address] [id number] [address] [place] [address] [id number] Jul, Visit for TB skin test Z11.1 and Screening for tuberculosis Z11.1 [facility] [address] [id number] [address] [place] [phone] Jun, [facility] [address] [id number] [place] [address] [id number] Jun, Acute non-recurrent maxillar y sinusitis J01.00 [facility] [address] [id number] [place] [address] Jul, [facility] [address] [id number] [address] [place] [phone] Feb, [facility] [address] [id number] [address] [place] [phone] Feb, [facility] [address] [id number] [address] [place] [phone] Feb, [facility] [address] [id number] [address] [place] [phone] Feb, [facility] [address] [id number] [address] [place] [phone] Feb, Encounter for PPD test V74.1 [facility] [address] [id number] [address] [place] [phone] Feb, Encounter for PPD test V74.1 [facility] [address] [id number] [address] [place] [phone] Jan, [facility] [address] [id number] [address] [place] [phone] Jan, [facility] [address] [id number] [address] [place] [phone] Jan, [facility] [address] [id number] [address] [place] [phone] Dec, [facility] [address] [id number] [address] [place] [phone] Dec, [facility] [address] [id number] [address] [place] [phone] Sep, [facility] [address] [id number] [address] [place] [phone] Sep, [facility] [place] [facility] [address] [id number] [address] [place] [address], [place] [address] Aug, [facility] [address] [id number] [address] [place] [address], [place] [address] Aug, [facility] [address] [id number] [address] [place] [address], [place] [address] Jul, [facility] [address] [id number] [address] [place] [address], [place] [address] Jul, [facility] [address] [id number] [address] [place] [address], [place] [address] Jul, [facility] [address] [id number] [address] [place] [address], [place] [address] Jul, [facility] [address] [id number] [address] [place] [address], [place] [address] Jul, [facility] [address] [id number] [address] [place] [address], [place] [address] Jul, [facility] [address] [id number] [address] [place] [address], [place] [address] Jul, [facility] [address] [id number] [address] [place] [address], [place] [address] Jul, [facility] [address] [id number] [address] [place] [address], [place] [address] Jun, [facility] [address] [id number] [address] [place] [phone] Jun, [facility] [address] [id number] [address] [place] [address], [place] [address] May, [facility] [address] [id number] [address] [place] [address], [place] [address] May, [facility] [address] [id number] [address] [place] [address], [place] [id number] 14 Apr, 2014 [facility] [address] [id number] [address] [place] [phone] Apr, [facility] [address] [id number] [address] [place] [phone] Apr, [facility] [address] [id number] [address] [place] [phone] Apr, [facility] [address] [id number] [address] [place] [phone] Mar, [facility] [address] [id number] [address] [place] [phone] Mar, [facility] [address] [id number] [address] [place] [phone] Feb, [facility] [address] [id number] [address] [place] [phone] Feb, [facility] [address] [id number] [address] [place] [phone] Feb, [facility] [address] [id number] [address] [place] [phone] Feb, [facility] [address] [id number] [address] [place] [phone] Jan, [facility] [address] [id number] [address] [place] [phone] Jan, [facility] [address] [id number] [address] [place] [phone] Sep, [facility] [address] [id number] [address] [place] [phone] Sep, [facility] [address] [id number] [address] [place] [phone] Feb, [facility] [address] [id number] [address] [place] [phone] Feb, IMMUNIZATIONS No Known Immunizations SOCIAL HISTORY Never Assessed REASON FOR VISIT PLAN OF CARE VITAL SIGNS MEDICATIONS No Known Medications RESULTS No Results PROCEDURES No Known procedures INSTRUCTIONS MEDICATIONS ADMINISTERED No Known Medications MEDICAL (GENERAL) HISTORY Type Description Date Surgical History apendectomy 2014
--- OUTSIDE RECORDS SUMMARY | 2019-10-26 12:25 | XMS REPORT ---
Author Author Bella CARR [facility] Address [address] [place] [address] Care Team Providers Care [employer]ric[employer] Helper Name Role Phone SHAWN CARR Unavailable PROBLEMS Type Condition ICD9-CM Code YVU49-GI Code Onset Dates Condition S tatus SNOMED Code Problem Gastroesophageal reflux disease with esophagitis K 21.0 Active [id number] ALLERGIES No Information ENCOUNTERS Encounter Location Date Diagnosis [facility] [address] [id number] [address] [place] [id number] Feb, Gastroesophageal reflux dise ase with esophagitis K21.0 [facility] [address] [id number] [address] [place] [place] [address] Dec, School physical exam Z02.0 [facility] [address] [id number] [address] [place] [address] [id number] Oct, Encounter for immunization Z 23 [facility] [address] [id number] [address] [place] [address] [id number] Aug, Encounter for immunization Z 23 [facility] [address] [id number] [address] [place] [address] [id number] Aug, Encounter for immunization Z 23 [facility] [address] [id number] [address] [place] [address] [id number] Jul, Visit for TB skin test Z11.1 and Screening for tuberculosis Z11.1 [facility] [address] [id number] [address] [place] [address] [id number] Jul, Visit for TB skin test Z11.1 and Screening for tuberculosis Z11.1 [facility] [address] [id number] [address] [place] [phone] Jun, [facility] [address] [id number] [place] [place] [address] [id number] Jun, Acute non-recurrent maxillar y sinusitis J01.00 [facility] [address] [id number] [place] [address] Jul, [facility] [address] [id number] [address] [place] [address] Feb, [facility] [address] [id number] [address] [place] [phone] Feb, [facility] [address] [id number] [address] [place] [phone] Feb, [facility] [address] [id number] [address] [place] [phone] Feb, [facility] [address] [id number] [address] [place] [address] Feb, Encounter for PPD test V74.1 [facility] [address] [id number] [address] [place] [phone] Feb, Encounter for PPD test V74.1 [facility] [address] [id number] [address] [place] [phone] Jan, [facility] [address] [id number] [address] [place] [phone] Jan, [facility] [address] [id number] [address] [place] [place] [address] Jan, [facility] [address] [id number] [address] [place] [place] [phone] Dec, [facility] [address] [id number] [address] [place] [place] [phone] Dec, [facility] [address] [id number] [address] [place] [place] [phone] Sep, [facility] [address] [id number] [address] [place] [phone] Sep, [facility] [address] [id number] [address] [place] [address], [place] [address] Aug, [facility] [address] [id number] [address] [place] [address], [place] [address] Aug, [facility] [address] [id number] [address] [place] [address], [place] [address] Jul, [facility] [address] [id number] [address] [place] [address], [place] [address] Jul, [facility] [address] [id number] [address] [place] [address], [place] [address] Jul, [facility] [address] [id number] [address] [place] [address], [place] [address] Jul, [facility] [address] [id number] [address] [place] [address], [place] [address] Jul, [facility] [address] [id number] [address] [place] [address], [place] [address] Jul, [facility] [address] [id number] [address] [place] [address], [place] [address] Jul, [facility] [address] [id number] [address] [place] [address], [place] [address] Jul, [facility] [address] [id number] [address] [place] [address], [place] [address] Jun, [facility] [address] [id number] [address] [place] [address] Jun, [facility] [address] [id number] [address] [place] [address], [place] [address] May, [facility] [address] [id number] [address] [place] [address], [place] [address] May, [facility] [address] [id number] [address] [place] [address], [place] [address] 14 Apr, 2014 [facility] [address] [id number] [address] [place] [address] Apr, [facility] [address] [id number] [address] [place] [phone] Apr, [facility] [address] [id number] [address] [place] [phone] Apr, [facility] [address] [id number] [address] [place] [address] Mar, [facility] [address] [id number] [address] [place] [phone] Mar, [facility] [address] [id number] [address] [place] [phone] Feb, [facility] [address] [id number] [address] [place] [address] Feb, [facility] [address] [id number] [address] [place] [address] Feb, [facility] [address] [id number] [address] [place] [address] Feb, [facility] [address] [id number] [address] [place] [address] Jan, [facility] [address] [id number] [address] [place] [phone] Jan, [facility] [address] [id number] [address] [place] [address] Sep, [facility] [address] [id number] [address] [place] [address] Sep, [facility] [address] [id number] [address] [place] [address] Feb, [facility] [address] [id number] [address] [place] [address] Feb, IMMUNIZATIONS No Known Immunizations SOCIAL HISTORY Never Assessed REASON FOR VISIT PLAN OF CARE VITAL SIGNS MEDICATIONS No Known Medications RESULTS No Results PROCEDURES No Known procedures INSTRUCTIONS MEDICATIONS ADMINISTERED No Known Medications MEDICAL (GENERAL) HISTORY Type Description Date Surgical History apendectomy 2014
--- OUTSIDE RECORDS SUMMARY | 2019-10-26 12:25 | XMS REPORT ---
Author Author Bella Rasmussen Doctor Organization [facility] Address Unknown Phone Unavailable Care Team Providers Care Franchise Specialist Name Role Phone Migration, Doctor Unavailable Unavailable PROBLEMS Type Condition ICD9-CM Code FMO52-PG Code Onset Dates Condition S tatus SNOMED Code Problem Gastroesophageal reflux disease with esophagitis K 21.0 Active [id number] ALLERGIES No Information ENCOUNTERS Encounter Location Date Diagnosis [facility] [address] [facility] [id number] [address] [place] [phone] Mar, Dysuria R30.0 ; Other specif ied bacterial agents as the cause of diseases classified elsewhere B96.89 and Acute vaginitis N76.0 [facility] [address] [facility] [id number] [address] [place] [address] Feb, Gastroesophageal reflux dise ase with esophagitis K21.0 [facility] [address] [id number] [place] [address] Dec, School physical exam Z02.0 [facility] [address] [id number] [place] [id number] Oct, Encounter for immunization Z23 [facility] [address] [id number] [place] [id number] Aug, Encounter for immunization Z23 [facility] [address] [id number] [place] [id number] Aug, Encounter for immunization Z23 [facility] [address] [id number] [place] [id number] Jul, Visit for TB skin test Z11.1 and Screeni ng for tuberculosis Z11.1 [facility] [address] [id number] [place] [id number] Jul, Visit for TB skin test Z11.1 and Screeni ng for tuberculosis Z11.1 [facility] [address] [id number] [place] [address] Jun, [facility] [address] [id number] [place] [id number] Jun, Acute non-recurrent maxillary sinusitis J01.00 [facility] [id number] [place] [address] Jul, [facility] [address] [id number] [place] [address] Feb, [facility] [address] [id number] [place] [address] Feb, [facility] [address] [id number] [place] [address] Feb, [facility] [address] [id number] [place] [address] Feb, [facility] [address] [id number] [place] [address] Feb, Encounter for PPD test V74.1 [facility] [address] [id number] [place] [address] Feb, Encounter for PPD test V74.1 [facility] [address] [id number] [place] [address] Jan, [facility] [address] [id number] [place] [address] Jan, [facility] [address] [id number] [place] [address] Jan, [facility] [address] [id number] [place] [address] Dec, [facility] [address] [id number] [place] [address] Dec, [facility] [address] [id number] [place] [address] Sep, [facility] [address] [id number] [facility] [place] [address] Sep, [facility] [place] [facility] [address] [facility] [id number] [place] [address] Aug, [facility] [place] [facility] [address] [id number] [place] [address] Aug, [facility] [place] [facility] [address] [id number] [place] [address] Jul, [facility] [place] [facility] [address] [id number] [place] [address] Jul, [facility] [place] [facility] [address] [id number] [place] [address] Jul, [facility] [place] [facility] [address] [id number] [place] [address] Jul, [facility] [place] [facility] [address] [id number] [place] [address] Jul, [facility] [place] [facility] [address] [id number] [place] [address] Jul, [facility] [place] [facility] [address] [id number] [place] [address] Jul, [facility] [place] [facility] [address] [id number] [place] [address] Jul, [facility] [place] [address] [id number] [place] [address] Jun, [facility] [place] [facility] [address] [id number] [place] [address] Jun, [facility] [place] [facility] [address] [id number] [place] [address] May, [facility] [place] [facility] [address] [id number] [place] [address] May, [facility] [place] [facility] [address] [id number] [place] [address] 14 Apr, 2014 [facility] [place] [facility] [address] [id number] [place] [address] 14 Apr, 2014 [facility] [place] [facility] [address] [id number] [place] [address] Apr, [facility] [address] [id number] [place] [address] Apr, [facility] [address] [id number] [place] [address] Mar, [facility] [address] [id number] [place] [address] Mar, [facility] [address] [id number] [place] [address] Feb, [facility] [address] [id number] [place] [address] Feb, [facility] [address] [id number] [place] [address] Feb, [facility] [address] [id number] [place] [address] Feb, [facility] [id number] [place] [address] Jan, [facility] [address] [id number] [place] [address] Jan, [facility] [address] [id number] [place] [address] Sep, [facility] [address] [id number] [place] [address] Sep, [facility] [address] [id number] [place] [address] Feb, [facility] [address] [id number] [place] [address] Feb, IMMUNIZATIONS No Known Immunizations SOCIAL HISTORY Never Assessed REASON FOR VISIT PLAN OF CARE VITAL SIGNS MEDICATIONS Unknown Medications RESULTS No Results PROCEDURES Procedure Date Ordered Result Body Site TB INTRADERMAL TEST October 06, 2013 INSTRUCTIONS MEDICATIONS ADMINISTERED No Known Medications MEDICAL (GENERAL) HISTORY Type Description Date Surgical History apendectomy 2013
--- OUTSIDE RECORDS SUMMARY | 2019-10-26 12:25 | XMS REPORT ---
Author Author Bella [facility] Address [address] [place] [address] Care Team Providers Care Instructor Dancing Name Role Phone SUE CORDOVA Unavailable PROBLEMS Type Condition ICD9-CM Code VYX23-UM Code Onset Dates Condition S tatus SNOMED Code Problem Gastroesophageal reflux disease with esophagitis K 21.0 Active [id number] ALLERGIES No Information ENCOUNTERS Encounter Location Date Diagnosis [facility] [address] [id number] [address] [place] [phone] Feb, Gastroesophageal reflux dise ase with esophagitis K21.0 [facility] [address] [id number] [address] [place] [phone] Dec, School physical exam Z02.0 [facility] [address] [id number] [address] [place] [address] [phone] Oct, Encounter for immunization Z 23 [facility] [address] [id number] [address] [place] [address] [id number] Aug, Encounter for immunization Z 23 [facility] [address] [id number] [address] [place] [address] [id number] Aug, Encounter for immunization Z 23 [facility] [address] [id number] [address] [place] [address] [id number] Jul, Visit for TB skin test Z11.1 and Screening for tuberculosis Z11.1 [facility] [address] [id number] [address] [place] [address] [id number] Jul, Visit for TB skin test Z11.1 and Screening for tuberculosis Z11.1 [facility] [address] [id number] [address] [place] [phone] Jun, [facility] [address] [id number] [place] [address] [id number] Jun, Acute non-recurrent maxillar y sinusitis J01.[address] [facility] [address] [id number] [place] [address] Jul, [facility] [address] [id number] [address] [place] [phone] Feb, [facility] [address] [id number] [address] [place] [phone] Feb, [facility] [address] [id number] [address] [place] [phone] Feb, [facility] [address] [id number] [address] [place] [phone] Feb, [facility] [address] [id number] [address] [place] [phone] Feb, Encounter for PPD test V74.1 [facility] [address] [id number] [address] [place] [phone] Feb, Encounter for PPD test V74.1 [facility] [address] [id number] [address] [place] [phone] Jan, [facility] [address] [id number] [address] [place] [phone] Jan, [facility] [address] [id number] [address] [place] [phone] Jan, [facility] [address] [id number] [address] [place] [phone] Dec, [facility] [address] [id number] [address] [place] [phone] Dec, [facility] [address] [id number] [address] [place] [phone] Sep, [facility] [address] [id number] [address] [place] [phone] Sep, [facility] [address] [id number] [address] [place] [address], [place] [address] Aug, [facility] [address] [id number] [address] [place] [address], [place] [address] Aug, [facility] [address] [id number] [address] [place] [address], [place] [address] Jul, [facility] [address] [id number] [address] [place] [address], [place] [address] Jul, [facility] [address] [id number] [address] [place] [address], [place] [address] Jul, [facility] [address] [id number] [address] [place] [address], [place] [address] Jul, [facility] [address] [id number] [address] [place] [address], [place] [address] Jul, [facility] [address] [id number] [address] [place] [address], [place] [address] Jul, [facility] [address] [id number] [address] [place] [address], [place] [address] Jul, [facility] [address] [id number] [address] [place] [address], [place] [address] Jul, [facility] [address] [id number] [address] [place] [address], [place] [address] Jun, [facility] [address] [id number] [address] [place] [phone] Jun, [facility] [address] [id number] [address] [place] [address], [place] [address] May, [facility] [address] [id number] [address] [place] [address], [place] [address] May, [facility] [place] [facility] [address] [id number] [address] [place] [address], [place] [address] 14 Apr, 2014 [facility] [address] [id number] [address] [place] [phone] 14 Apr, 2014 [facility] [address] [id number] [address] [place] [phone] Apr, [facility] [address] [id number] [address] [place] [phone] Apr, [facility] [address] [id number] [address] [place] [phone] Mar, [facility] [address] [id number] [address] [place] [phone] Mar, [facility] [address] [id number] [address] [place] [phone] Feb, [facility] [address] [id number] [address] [place] [phone] Feb, [facility] [address] [id number] [address] [place] [phone] Feb, [facility] [address] [id number] [address] [place] [phone] Feb, [facility] [address] [id number] [address] [place] [phone] Jan, [facility] [address] [id number] [address] [place] [phone] Jan, [facility] [address] [id number] [address] [place] [phone] Sep, [facility] [address] [id number] [address] [place] [phone] Sep, [facility] [address] [id number] [address] [place] [phone] Feb, [facility] [address] [id number] [address] [place] [phone] Feb, IMMUNIZATIONS No Known Immunizations SOCIAL HISTORY Never Assessed REASON FOR VISIT PLAN OF CARE VITAL SIGNS MEDICATIONS No Known Medications RESULTS No Results PROCEDURES No Known procedures INSTRUCTIONS MEDICATIONS ADMINISTERED No Known Medications MEDICAL (GENERAL) HISTORY Type Description Date Surgical History apendectomy 2013
--- OUTSIDE RECORDS SUMMARY | 2019-10-26 12:25 | XMS REPORT ---
Author Author Bella CARR Organization [facility] Address [address] [place] [address] Care Team Providers [employer] Executive Director Name Role Phone SHAWN CARR Unavailable PROBLEMS Type Condition ICD9-CM Code CGM80-NW Code Onset Dates Condition S tatus SNOMED Code Problem Gastroesophageal reflux disease with esophagitis K 21.0 Active [id number] ALLERGIES No Information ENCOUNTERS Encounter Location Date Diagnosis [facility] [address] [id number] [address] [place] [phone] Feb, Gastroesophageal reflux dise ase with esophagitis K21.0 [facility] [address] [id number] [address] [place] [phone] Dec, School physical exam Z02.0 [facility] [address] [id number] [address] [place] [address] [id number] Oct, Encounter for immunization Z 23 [facility] [address] [id number] [address] [place] [address] [id number] Aug, Encounter for immunization Z 23 [facility] [address] [id number] [address] [place] [address] [id number] Aug, Encounter for immunization Z 23 [facility] [address] [id number] [address] [place] [address] [id number] Jul, Visit for TB skin test Z11.1 and Screening for tuberculosis Z11.1 [facility] [address] [id number] [address] [place] [address] [id number] Jul, Visit for TB skin test Z11.1 and Screening for tuberculosis Z11.1 [facility] [address] [id number] [address] [place] [phone] Jun, [facility] [place] [address] [id number] [place] [id number] Jun, Acute non-recurrent maxillar y sinusitis J01.00 [facility] [address] [id number] [place] [address] Jul, [facility] [address] [id number] [address] [place] [phone] Feb, [facility] [address] [id number] [address] [place] [phone] Feb, [facility] [address] [id number] [address] [place] [phone] Feb, [facility] [address] [id number] [address] [place] [phone] Feb, [facility] [address] [id number] [address] [place] [phone] Feb, Encounter for PPD test V74.1 [facility] [address] [id number] [address] [place] [phone] Feb, Encounter for PPD test V74.1 [facility] [address] [id number] [address] [place] [phone] Jan, [facility] [address] [id number] [address] [place] [phone] Jan, [facility] [address] [id number] [address] [place] [phone] Jan, [facility] [address] [id number] [address] [place] [phone] Dec, [facility] [address] [id number] [address] [place] [phone] Dec, [facility] [address] [id number] [address] [place] [phone] Sep, [facility] [address] [id number] [address] [place] [phone] Sep, [facility] [place] [address] [id number] [address] [place] [address], [place] [address] Aug, [facility] [address] [id number] [address] [place] [address], [place] [address] Aug, [facility] [address] [id number] [address] [place] [address], [place] [address] Jul, [facility] [address] [id number] [address] [place] [address], [place] [address] Jul, [facility] [address] [id number] [address] [place] [address], [place] [address] Jul, [facility] [address] [id number] [address] [place] [address], [place] [address] Jul, [facility] [address] [id number] [address] [place] [address], [place] [address] Jul, [facility] [address] [id number] [address] [place] [address], [place] [address] Jul, [facility] [address] [id number] [address] [place] [address], [place] [address] Jul, [facility] [address] [id number] [address] [place] [address], [place] [address] Jul, [facility] [address] [id number] [address] [place] [address], [place] [address] Jun, [facility] [address] [id number] [address] [place] [phone] Jun, [facility] [address] [id number] [address] [place] [address], [place] [address] May, [facility] [address] [id number] [address] [place] [address], [place] [address] May, [facility] [address] [id number] [address] [place] [address], [place] [address] 14 Apr, 2014 [facility] [address] [id number] [address] [place] [phone] Apr, [facility] [address] [id number] [address] [place] [phone] Apr, [facility] [address] [id number] [address] [place] [phone] Apr, [facility] [address] [id number] [address] [place] [phone] Mar, [facility] [address] [id number] [address] [place] [phone] Mar, [facility] [address] [id number] [address] [place] [phone] Feb, [facility] [address] [id number] [address] [place] [phone] Feb, [facility] [address] [id number] [address] [place] [phone] Feb, [facility] [address] [id number] [address] [place] [phone] Feb, [facility] [address] [id number] [address] [place] [phone] Jan, [facility] [address] [id number] [address] [place] [phone] Jan, [facility] [address] [id number] [address] [place] [phone] Sep, [facility] [address] [id number] [address] [place] [phone] Sep, [facility] [address] [id number] [address] [place] [phone] Feb, [facility] [address] [id number] [address] [place] [phone] Feb, IMMUNIZATIONS No Known Immunizations SOCIAL HISTORY Never Assessed REASON FOR VISIT PLAN OF CARE VITAL SIGNS MEDICATIONS No Known Medications RESULTS No Results PROCEDURES No Known procedures INSTRUCTIONS MEDICATIONS ADMINISTERED No Known Medications MEDICAL (GENERAL) HISTORY Type Description Date Surgical History apendectomy 2014
--- OUTSIDE RECORDS SUMMARY | 2019-10-26 12:26 | XMS REPORT | Continuity of Care Document ---
Author Organization Unknown Address Unknown Phone Unavailable Allergies Active Description Code Type Severity Reaction Onset Reported/Identified Relationship to Patient Clinical Status Yes No Known Drug Allergies [id number] Drug Allergy Unknown N/A 02/29/2016 Medications There is no data. Problems Date Dx Coded Attending Type Code Diagnosis Diagnosed By 01/15/2011 Ot 462 ACUTE PHARYNGITIS 01/15/2011 Ot 465.9 ACUT E URI NOS 01/15/2011 Ot 780.60 FEV ER, UNSPECIFIED 01/15/2011 Ot 784.7 EPIS TAXIS 03/05/2011 V70.3 SPOR TS/SCHOOL EXAM 03/05/2011 SHAWN CARR DO V70.3 SPORTS/SCHOOL EXAM 02/26/2013 V04.89 GAR DASIL (HPV) DX 02/26/2013 V20.2 visi t for: well child visit 02/26/2013 SHAWN CARR [...] 648.93 OTH CURR COND-ANTEPARTUM 09/16/2014 Ot 644.13 THR EAT LABOR NEC- ANTEPAR 09/16/2014 Ot 729.81 09/16/2014 GEORGES MAZARIEGOS, MORE [place] Ot 656.5 3 09/16/2014 MORE SU MD Ot V28.8 1 09/17/2014 Ot 729.81 09/17/2014 MORE SU MD Ot 656.5 3 09/17/2014 MORE SU MD Ot V28.8 1 09/19/2014 Ot 664.21 DEL W 3 DEG LACERAT-DEL 09/19/2014 Ot V06.1 [id number], COMBINED [ 09/19/2014 Ot V27.0 DELI RAISA-SINGLE LIVEBORN 01/11/2015 KAY CABALLERO MD Ot 618.04 RECTOCELE 01/17/2015 KAY CABALLERO MD Ot 285.9 01/17/2015 KAY CABALLERO MD Ot 751.5 01/17/2015 KAY CABALLERO MD Ot V72.63 01/17/2015 KAY CABALLERO MD Ot V74.8 09/29/2015 Ot 729.81 09/29/2015 MORE SU MD Ot 656.5 3 09/29/2015 MORE SU MD Ot V28.8 1 09/29/2015 KAY CABALLERO MD Ot 285.9 09/29/2015 KAY CABALLERO MD Ot 751.5 09/29/2015 KAY CABALLERO MD Ot V72.63 09/29/2015 KAY CABALLERO MD Ot V74.8 09/29/2015 SANDRA PEREZ DO Ot R09.1 PLEURISY 12/25/2015 GEORGES MAZARIEGOS, MORE [place] Ot E04.1 NONTOXIC SINGLE THYROID NODULE 02/29/2016 TRISTAN RICHARD Ot R10.11 RIGHT UPPER QUADRANT PAIN 03/02/2016 TRISTAN RICHARD Ot R10.11 RIGHT UPPER QUADRANT PAIN 03/29/2016 Ot 729.81 SWE LLING OF LIMB 03/29/2016 MORE SU MD Ot 656.5 3 POOR GRTH-ANTEPART 03/29/2016 MORE SU MD Ot V28.8 1 ENCOUNTER FOR ANATOMIC SURVEY 03/29/2016 KAY CABALLERO [...] FOR OTHER PREPROCEDURAL EXAMIN 09/06/2016 Ot 729.81 SWE LLING OF LIMB 09/06/2016 GEORGES MAZARIEGOS, MORE [place] Ot 656.5 3 POOR GRTH-ANTEPART 09/06/2016 GEORGES MAZARIEGOS, MORE [place] Ot V28.8 1 ENCOUNTER FOR ANATOMIC SURVEY 09/06/2016 KAY CABALLERO [...] JULIEN MD Ot R13.10 DYSPHAGIA, UNSPECIFIED 09/06/2016 ANAYA MAZARIEGOS, STEPHEN [place] Ot Z01.818 ENCOUNTER FOR OTHER PREPROCEDURAL EXAMIN 09/07/2016 ANAYA MAZARIEGOS, STEPHEN [place] Ot K20.9 ESOPHAGITIS, UNSPECIFIED 09/07/2016 ANAYA MAZARIEGOS, STEPHEN [place] Ot K44.9 DIAPHRAGMATIC HERNIA WITHOUT OBSTRUCTION 10/21/2016 GEORGES MAZARIEGOS, MORE [place] Ot 656.5 3 POOR GRTH-ANTEPART 10/21/2016 MORE SU MD Ot V28.8 1 ENCOUNTER FOR ANATOMIC SURVEY 10/21/2016 KAY CABALLERO MD Ot 285.9 ANEMIA NOS 10/21/2016 ADA MAZARIEGOS, KAY [place] Ot 751.5 INTESTINAL ANOMALY NEC 10/21/2016 KAY CABALLERO MD Ot V72.63 PRE-PROCEDURAL LABORATORY EXAMINATION 10/21/2016 KAY CABALLERO MD, Ot V74.8 SCREEN-BACTERIAL DIS NEC 10/21/2016 MORE SU MD Ot E04.1 NONTOXIC SINGLE THYROID NODULE 11/05/2016 MORE SU MD Ot 656.5 3 POOR GRTH-ANTEPART 11/05/2016 MORE SU MD Ot V28.8 1 ENCOUNTER FOR ANATOMIC SURVEY 11/05/2016 KAY CABALLERO MD Ot 285.9 ANEMIA NOS 11/05/2016 KAY CABALLERO MD Ot 751.5 INTESTINAL ANOMALY NEC 11/05/2016 KAY CABALLERO MD, Ot V72.63 PRE-PROCEDURAL LABORATORY EXAMINATION 11/05/2016 KAY CABALLERO MD, Ot V74.8 SCREEN-BACTERIAL DIS NEC 11/05/2016 MORE SU MD Ot E04.1 NONTOXIC SINGLE THYROID NODULE 11/05/2016 CARLIE MAZARIEGOS, [place] Sheehan Ot E04. 1 NONTOXIC SINGLE THYROID NODULE 11/06/2016 ANAYA MAZARIEGOS, STEPHEN [place] Ot K20.9 ESOPHAGITIS, UNSPECIFIED 11/06/2016 ANAYA MAZARIEGOS, STEPHEN [place] Ot K44.9 DIAPHRAGMATIC HERNIA WITHOUT OBSTRUCTION 11/09/2016 [place] SEXTON MD Ot E04. 1 NONTOXIC SINGLE THYROID NODULE 02/12/2017 SAYDA CORDOBA [...] MD Ot R51 HEADACHE 02/22/2017 AZ SEXTON MD, Ot R51 HEADACHE 03/03/2017 AZ SEXTON MD, Ot R51 HEADACHE 07/23/2017 GEORGES MAZARIEGOS, MORE [place] Ot 656.5 3 POOR GRTH-ANTEPART 07/23/2017 GEORGES MAZARIEGOS, MORE [place] Ot V28.8 1 ENCOUNTER FOR ANATOMIC SURVEY 07/23/2017 KAY CABALLERO MD Ot 285.9 ANEMIA NOS 07/23/2017 KAY CABALLERO MD Ot 751.5 INTESTINAL ANOMALY NEC 07/23/2017 KAY CABALLERO MD Ot V72.63 PRE-PROCEDURAL LABORATORY EXAMINATION 07/23/2017 KAY CABALLERO MD Ot V74.8 SCREEN-BACTERIAL DIS NEC 07/23/2017 GEORGES MAZARIEGOS, MORE [place] Ot E04.1 NONTOXIC SINGLE THYROID NODULE 07/23/2017 AZ SEXTON MD Ot E04. 1 NONTOXIC SINGLE THYROID NODULE 07/23/2017 AZ SEXTON MD, Ot R51 HEADACHE 07/23/2017 TRISTAN RICHARD Ot J11.1 FLU DUE TO UNIDENTIFIED INFLUENZA VIRUS 07/23/2017 TRISTAN RICHARD Ot R50.9 FEVER, UNSPECIFIED 07/23/2017 TRISTAN RICHARD Ot Z87.19 PERSONAL HISTORY OF OTHER DISEASES OF TH 07/23/2017 TRISTAN RCIHARD Ot Z90.49 ACQUIRED ABSENCE OF OTHER SPECIFIED PART 12/06/2017 AZ SEXTON MD Ot R22. 1 LOCALIZED SWELLING, MASS AND LUMP, NECK 12/11/2017 AZ SEXTON MD Ot R22. 1 LOCALIZED SWELLING, MASS AND LUMP, NECK 09/26/2018 CARLIE MD, [place] C Ot R22. 1 LOCALIZED SWELLING, MASS AND LUMP, NECK 09/29/2018 AZ SEXTON MD Ot R22. 1 LOCALIZED SWELLING, MASS AND LUMP, NECK 10/02/2018 AZ SEXTON MD Ot E04. 1 NONTOXIC SINGLE THYROID NODULE 10/26/2018 MORE SU MD Ot 656.5 3 POOR GRTH-ANTEPART 10/26/2018 MORE SU MD Ot V28.8 1 ENCOUNTER FOR ANATOMIC SURVEY 10/26/2018 KAY CABALLERO MD Ot 285.9 ANEMIA NOS 10/26/2018 KAY CABALLERO MD Ot 751.5 INTESTINAL ANOMALY NEC 10/26/2018 KAY CABALLERO MD, Ot V72.63 PRE-PROCEDURAL LABORATORY EXAMINATION 10/26/2018 KAY CABALLERO MD Ot V74.8 SCREEN-BACTERIAL DIS NEC 10/26/2018 MORE SU MD Ot E04.1 NONTOXIC SINGLE THYROID NODULE 10/26/2018 AZ SEXTON MD Ot E04. 1 NONTOXIC SINGLE THYROID NODULE 10/26/2018 AZ SEXTON MD Ot R51 HEADACHE 10/26/2018 AZ SEXTON MD Ot E04. 1 NONTOXIC SINGLE THYROID NODULE 02/24/2019 GEORGES MAZARIEGOS, MORE [place] Ot 656.5 3 POOR GRTH-ANTEPART 02/24/2019 MORE SU MD Ot V28.8 1 ENCOUNTER FOR ANATOMIC SURVEY 02/24/2019 KAY CABALLERO MD Ot 285.9 ANEMIA NOS 02/24/2019 KAY CABALLERO MD Ot 751.5 INTESTINAL ANOMALY NEC 02/24/2019 KAY CABALLERO MD Ot V72.63 PRE-PROCEDURAL LABORATORY EXAMINATION 02/24/2019 KAY CABALLERO MD Ot V74.8 SCREEN-BACTERIAL DIS NEC 02/24/2019 MORE SU MD Ot E04.1 NONTOXIC SINGLE THYROID NODULE 02/24/2019 AZ SEXTON MD Ot E04. 1 NONTOXIC SINGLE THYROID NODULE 02/24/2019 AZ SEXTON MD Ot R51 HEADACHE 02/24/2019 AZ SEXTON MD Ot E04. 1 NONTOXIC SINGLE THYROID NODULE 02/24/2019 JEREMY SKELTON MD Ot K52. 9 NONINFECTIVE GASTROENTERITIS AND COLITIS 02/24/2019 JEREMY SKELTON MD Ot R10. 10 UPPER ABDOMINAL PAIN, UNSPECIFIED 02/24/2019 JEREMY SKELTON MD Ot Z90. 49 ACQUIRED ABSENCE OF OTHER SPECIFIED PART 02/27/2019 JEREMY SKELTON MD Ot K52. 9 NONINFECTIVE GASTROENTERITIS AND COLITIS 02/27/2019 NAFISA MAZARIEGOS, JEREMY [place] Ot R10. 10 UPPER ABDOMINAL PAIN, UNSPECIFIED 02/27/2019 NAFISA MAZARIEGOS, JEREMY [place] Ot Z90. 49 ACQUIRED ABSENCE OF OTHER SPECIFIED PART 04/16/2019 ANASTACIA , ABBIE Warner Ot A74.9 CHLAMYDIAL INFECTION, UNSPECIFIED 04/16/2019 ANASTACIA , ABBIE Warner Ot B96.89 OTH BACTERIAL AGENTS THE CAUSE OF DIS 04/16/2019 ANASTACIA , ABBIE Warner Ot F41.9 ANXIETY DISORDER, UNSPECIFIED 04/16/2019 ANASTACIA , ABBIE Alana Ot K21.9 GASTRO-ESOPHAGEAL REFLUX DISEASE WITHOUT 04/16/2019 ANASTACIA , ABBIE Alana Ot N76.0 ACUTE VAGINITIS 04/16/2019 ANASTACIA , ABBIE Alana Ot Z90.49 ACQUIRED ABSENCE OF OTHER SPECIFIED PART 04/18/2019 ANASTACIA BRUNO, ABBIE Alana Ot A74.9 CHLAMYDIAL INFECTION, UNSPECIFIED 04/18/2019 ANASTACIA , ABBIE Alana Ot B96.89 OTH BACTERIAL AGENTS THE CAUSE OF DIS 04/18/2019 ANASTACIA , ABBIE Warner Ot F41.9 ANXIETY DISORDER, UNSPECIFIED 04/18/2019 ANASTACIA , ABBIE Warner Ot K21.9 GASTRO-ESOPHAGEAL REFLUX DISEASE WITHOUT 04/18/2019 ANASTACIA , ABBIE Alana Ot N76.0 ACUTE VAGINITIS 04/18/2019 SALINE , ABBIE Alana Ot Z90.49 ACQUIRED ABSENCE OF OTHER SPECIFIED PART Procedures Code Description Performed By Per [facility] [place] [address] PURE TONE HEARING TEST AIR 02/28/2013 65398 TB T EST INTRADERMAL 10/06/2013 75.62 REPA IR OB LAC RECT/ANUS 09/18/2014 Results Test Result Range Complete urinalysis with reflex to cultu re - 02/29/16 14:13 Urine color determination YELLOW NRG Urine clarity determination CLEAR NR G Urine pH measurement by test strip 8 5-9 Specific gravity of urine by test strip 1.010 1.016-1.022 Urine protein assay by test strip, semi-quantitative NEGATIVE NEGATIVE Urine glucose detection by automated test strip NE GATIVE NEGATIVE Erythrocytes detection in urine sediment by light micr oscopy NEGATIVE NEGATIVE Urine ketones detection by automated test strip NE GATIVE NEGATIVE Urine nitrite detection by test strip NEGATIVE NEGATIVE Urine total bilirubin detection by test strip NEGA TIVE NEGATIVE Urine urobilinogen measurement by automated test strip (mass/volume) NORMAL NORMAL Urine leukocyte esterase detection by dipstick 1+ NEGATIVE Automated urine sediment erythrocyte cou nt by microscopy (number/high power field) NONE NRG Automated urine sediment leukocyte count by microscopy (number/high power field) [HPF] NRG Bacteria detection in urine sediment by light microsco py TRACE NRG Squamous epithelial cells detection in u rine sediment by light microscopy 5-10 NRG Crystals detection in urine sediment by light microsco py NONE NRG Casts detection in urine sediment by light microscopy NONE NRG Mucus detection in urine sediment by light microscopy NEGATIVE NRG Complete urinalysis with reflex to culture NO NRG Complete blood count (CBC) with automate d white blood cell (WBC) differential - 02/29/16 14:25 Blood leukocytes automated count (number/volume) 7.5 10*3/uL 4.3-11.0 Blood erythrocytes automated count (number/volume) 4.37 10*6/uL 4.35-5.85 Venous blood hemoglobin measurement (mass/volume) 11.0 g/dL 11.5-16.0 Blood hematocrit (volume fraction) 34 % 35-52 Automated erythrocyte mean corpuscular volume 77 [ foz_us] 80-99 Automated erythrocyte mean corpuscular h emoglobin (mass per erythrocyte) 25 pg 25-34 Automated erythrocyte mean corpuscular h emoglobin concentration measurement (mass/volume) 33 g/dL 32-36 Automated erythrocyte distribution width ratio 15. 5 % 10.0- 14.5 Automated blood platelet count [...] 10*3 1.0-4.0 Blood monocytes automated count (number/volume) 0. 5 10*3 0.0-1.0 Automated eosinophil count 0.2 10*3/uL 0 .0-0.3 Automated blood basophil count (count/volume) 0.0 10*3/uL 0.0-0.1 Comprehensive metabolic panel - 02/29/16 14:25 Serum or plasma sodium measurement (moles/volume) 139 mmol/L 135-145 Serum or plasma potassium measurement (moles/volume) 3.4 mmol/L 3.6-5.0 Serum or plasma chloride measurement (moles/volume) 108 mmol/L 98-107 Carbon dioxide 24 mmol/L 21-32 Serum or plasma anion gap determination (moles/volume) 7 mmol/L 5-14 Serum or plasma urea nitrogen measurement (mass/volume ) 8 mg/dL 7-18 Serum or plasma creatinine measurement (mass/volume) 0.66 mg/dL 0.60-1.30 Serum or plasma urea nitrogen/creatinine mass ratio 12 NRG Serum or plasma glucose measurement (mass/volume) 70 mg/dL 70-105 Serum or plasma calcium measurement (mass/volume) 9.3 mg/dL 8.5-10.1 Serum or plasma total bilirubin measurement (mass/volu me) 0.4 mg/dL 0.1-1.0 Serum or plasma alkaline phosphatase louise surement (enzymatic activity/volume) 63 U/L 60-350 Serum or plasma aspartate aminotransfera se measurement (enzymatic activity/volume) 22 U/L 5-34 Serum or plasma alanine aminotransferase measurement (enzymatic activity/volume) 13 U/L 0-55 Serum or plasma protein measurement (mass/volume) 7.5 g/dL 6.4-8.2 Serum or plasma albumin measurement (mass/volume) 4.1 g/dL 3.2-4.5 Lipase - 02/29/16 14:25 Lipase 15 U/L 8-78 Complete blood count (CBC) with automate d white blood cell (WBC) differential - 03/29/16 14:56 Blood leukocytes automated count (number/volume) 8.2 10*3/uL 4.3-11.0 Blood erythrocytes automated count (number/volume) 4.85 10*6/uL 4.35-5.85 Venous blood hemoglobin measurement (mass/volume) 12.4 g/dL 11.5-16.0 Blood hematocrit (volume fraction) 38 % 35-52 Automated erythrocyte mean corpuscular volume 78 [ foz_us] 80-99 Automated erythrocyte mean corpuscular h emoglobin (mass per erythrocyte) 26 pg 25-34 Automated erythrocyte mean corpuscular h emoglobin concentration measurement (mass/volume) 33 g/dL 32-36 Automated erythrocyte distribution width ratio 15. 2 % 10.0- 14.5 Automated blood platelet count [...] 10*3 1.0-4.0 Blood monocytes automated count (number/volume) 0. 5 10*3 0.0-1.0 Automated eosinophil count 0.3 10*3/uL 0 .0-0.3 Automated blood basophil count (count/volume) 0.0 10*3/uL 0.0-0.1 Serum or plasma choriogonadotropin (preg yeimi test) detection - 03/29/16 14:56 Serum or plasma choriogonadotropin ( test) de tection NEGATIVE NEGATIVE Comprehensive metabolic panel - 03/29/16 14:56 Serum or plasma sodium measurement (moles/volume) 138 mmol/L 135-145 Serum or plasma potassium measurement (moles/volume) 4.1 mmol/L 3.6-5.0 Serum or plasma chloride measurement (moles/volume) 107 mmol/L 98-107 Carbon dioxide 20 mmol/L 21-32 Serum or plasma anion gap determination (moles/volume) 11 mmol/L 5-14 Serum or plasma urea nitrogen measurement (mass/volume ) 8 mg/dL 7-18 Serum or plasma creatinine measurement (mass/volume) 0.70 mg/dL 0.60-1.30 Serum or plasma urea nitrogen/creatinine mass ratio 11 NRG Serum or plasma glucose measurement (mass/volume) 85 mg/dL 70-105 Serum or plasma calcium measurement (mass/volume) 9.4 mg/dL 8.5-10.1 Serum or plasma total bilirubin measurement (mass/volu me) 0.2 mg/dL 0.1-1.0 Serum or plasma alkaline phosphatase louise surement (enzymatic activity/volume) 67 U/L 60-350 Serum or plasma aspartate aminotransfera se measurement (enzymatic activity/volume) 20 U/L 5-34 Serum or plasma alanine aminotransferase measurement (enzymatic activity/volume) 15 U/L 0-55 Serum or plasma protein measurement (mass/volume) 8.1 g/dL 6.4-8.2 Serum or plasma albumin measurement (mass/volume) 4.3 g/dL 3.2-4.5 Serum or plasma C reactive protein measu rement (mass/volume) - 03/29/16 14:56 Serum or plasma C reactive protein measurement (mass/v olume) 0.15 mg/dL 0.00-0.50 Complete urinalysis with reflex to cultu re - 03/29/16 15:00 Urine color determination YELLOW NRG Urine clarity determination CLEAR NR G Urine pH measurement by test strip 7 5-9 Specific gravity of urine by test strip 1.005 1.016-1.022 Urine protein assay by test strip, semi-quantitative NEGATIVE NEGATIVE Urine glucose detection by automated test strip NE GATIVE NEGATIVE Erythrocytes detection in urine sediment by light micr oscopy 5+ NEGATIVE Urine ketones detection by automated test strip NE GATIVE NEGATIVE Urine nitrite detection by test strip NEGATIVE NEGATIVE Urine total bilirubin detection by test strip NEGA TIVE NEGATIVE Urine urobilinogen measurement by automated test strip (mass/volume) NORMAL NORMAL Urine leukocyte esterase detection by dipstick NEG ATIVE NEGATIVE Automated urine sediment erythrocyte cou nt by microscopy (number/high power field) [HPF] NRG Automated urine sediment leukocyte count by microscopy (number/high power field) NONE NRG Bacteria detection in urine sediment by light microsco py NEGATIVE NRG Squamous epithelial cells detection in u rine sediment by light microscopy 5-10 NRG Crystals detection in urine sediment by light microsco py NONE NRG Casts detection in urine sediment by light microscopy NONE NRG Mucus detection in urine sediment by light microscopy NEGATIVE NRG Complete urinalysis with reflex to culture NO NRG Bacteria identification in genital speci men by aerobe culture - 03/29/16 17:11 Bacteria identification in genital specimen by aerobe culture NORMAL NRG Microscopic examination by YANIQUE preparati on - 03/29/16 17:11 Microscopic examination by YANIQUE preparation TNP NRG Microscopic examination by wet preparati on - 03/29/16 17:11 WET PREP RESULTS 03/29/16 17:34 BY MR NRG Urine beta human chorionic gonadotropin (hCG) measurement - 09/06/16 09:36 Urine beta human chorionic gonadotropin (hCG) measurem ent NEGATIVE NEGATIVE THYROID STIMULATING HORMONE - 10/21/16 0 9:08 THYROID STIMULATING HORMONE 2.31 u[iU]/mL 0.35-4.94 Serum or plasma thyroxine (T4) free edmond urement (mass/volume) - 10/21/16 09:08 Serum or plasma thyroxine (T4) free measurement (mass/ volume) 0.90 ng/dL 0.70-1.48 Complete blood count (CBC) with automate d white blood cell (WBC) differential - 02/24/19 04:01 Blood leukocytes automated count (number/volume) 10.0 10*3/uL 4.3-11.0 Blood erythrocytes automated count (number/volume) 4.48 10*6/uL 4.35-5.85 Venous blood hemoglobin measurement (mass/volume) 11.6 g/dL 11.5-16.0 Blood hematocrit (volume fraction) 36 % 35-52 Automated erythrocyte mean corpuscular volume 80 [ foz_us] 80-99 Automated erythrocyte mean corpuscular h emoglobin (mass per erythrocyte) 26 pg 25-34 Automated erythrocyte mean corpuscular h emoglobin concentration measurement (mass/volume) 32 g/dL 32-36 Automated erythrocyte distribution width ratio 13. 9 % 10.0- 14.5 Automated blood platelet count (count/volume) 345 10*3/uL 130-400 Automated blood platelet mean volume measurement 10.1 [foz_us] 7.4-10.4 Automated blood neutrophils/100 leukocytes 70 % 42-75 Automated blood lymphocytes/100 leukocytes 23 % 12-44 Blood monocytes/100 leukocytes 6 % 0-12 Automated blood eosinophils/100 leukocytes 1 % 0-10 Automated blood basophils/100 leukocytes 0 % 0-10 Blood neutrophils automated count (number/volume) 7.0 10*3 1.8-7.8 Blood lymphocytes automated count (number/volume) 2.3 10*3 1.0-4.0 Blood monocytes automated count (number/volume) 0. 6 10*3 0.0-1.0 Automated eosinophil count 0.1 10*3/uL 0 .0-0.3 Automated blood basophil count (count/volume) 0.0 10*3/uL 0.0-0.1 Comprehensive metabolic panel - 02/24/19 04:01 Serum or plasma sodium measurement (moles/volume) 140 mmol/L 135-145 Serum or plasma potassium measurement (moles/volume) 3.8 mmol/L 3.6-5.0 Serum or plasma chloride measurement (moles/volume) 108 mmol/L 98-107 Carbon dioxide 19 mmol/L 21-32 Serum or plasma anion gap determination (moles/volume) 13 mmol/L 5-14 Serum or plasma urea nitrogen measurement (mass/volume ) 8 mg/dL 7-18 Serum or plasma creatinine measurement (mass/volume) 0.75 mg/dL 0.60-1.30 Serum or plasma urea nitrogen/creatinine mass ratio 11 NRG Serum or plasma creatinine measurement w ith calculation of estimated glomerular filtration rate > NRG Serum or plasma glucose measurement (mass/volume) 101 mg/dL 70-105 Serum or plasma calcium measurement (mass/volume) 9.8 mg/dL 8.5-10.1 Serum or plasma total bilirubin measurement (mass/volu me) 0.2 mg/dL 0.1-1.0 Serum or plasma alkaline phosphatase louise surement (enzymatic activity/volume) 79 U/L 40-136 Serum or plasma aspartate aminotransfera se measurement (enzymatic activity/volume) 16 U/L 5-34 Serum or plasma alanine aminotransferase measurement (enzymatic activity/volume) 9 U/L 0-55 Serum or plasma protein measurement (mass/volume) 8.5 g/dL 6.4-8.2 Serum or plasma albumin measurement (mass/volume) 4.3 g/dL 3.2-4.5 CALCIUM CORRECTED 9.6 mg/dL 8.5-10.1 Lipase - 02/24/19 04:01 Lipase 14 U/L 8-78 Serum or plasma choriogonadotropin (preg yeimi test) detection - 02/24/19 04:01 Serum or plasma choriogonadotropin ( test) de tection NEGATIVE NEGATIVE Serum or plasma C reactive protein measu rement (mass/volume) - 02/24/19 04:01 Serum or plasma C reactive protein measurement (mass/v olume) 0.03 mg/dL 0.00-0.50 PT panel in platelet poor plasma by coag ulation assay - 02/24/19 04:01 Prothrombin time (PT) in platelet poor plasma by coagu lation assay 13.8 s 12.2-14.7 INR in platelet poor plasma or blood by coagulation as say 1.0 0.8-1.4 Activated partial thromboplastin time (a PTT) in platelet poor plasma bycoagulation assay - 02/24/19 04:01 Activated partial thromboplastin time (a PTT) in platelet poor plasma bycoagulation assay 30 s 24-35 Blood lactic acid measurement (moles/vol ume) - 02/24/19 04:20 Blood lactic acid measurement (moles/volume) 1.76 mmol/L 0.50-2.00 Bacterial blood culture - 02/24/19 04:20 Bacterial blood culture NG NRG Bacterial blood culture - 02/24/19 04:32 Bacterial blood culture NG NRG Complete urinalysis with reflex to cultu re - 02/24/19 05:15 Urine color determination YELLOW NRG Urine clarity determination CLEAR NR G Urine pH measurement by test strip 7 5-9 Specific gravity of urine by test strip 1.005 1.016-1.022 Urine protein assay by test strip, semi-quantitative NEGATIVE NEGATIVE Urine glucose detection by automated test strip NE GATIVE NEGATIVE Erythrocytes detection in urine sediment by light micr oscopy 5+ NEGATIVE Urine ketones detection by automated test strip NE GATIVE NEGATIVE Urine nitrite detection by test strip NEGATIVE NEGATIVE Urine total bilirubin detection by test strip NEGA TIVE NEGATIVE Urine urobilinogen measurement by automated test strip (mass/volume) NORMAL NORMAL Urine leukocyte esterase detection by dipstick NEG ATIVE NEGATIVE Automated urine sediment erythrocyte cou nt by microscopy (number/high power field) NONE NRG Automated urine sediment leukocyte count by microscopy (number/high power field) RARE NRG Bacteria detection in urine sediment by light microsco py TRACE NRG Squamous epithelial cells detection in u rine sediment by light microscopy 0-2 NRG Crystals detection in urine sediment by light microsco py NONE NRG Casts detection in urine sediment by light microscopy NONE NRG Mucus detection in urine sediment by light microscopy NEGATIVE NRG Complete urinalysis with reflex to culture NO NRG Urine drug screening test - 02/24/19 05: 15 Urine phencyclidine detection by screening method NEGATIVE NEGATIVE Urine benzodiazepines detection by screening method NEGATIVE NEGATIVE Urine cocaine detection NEGATIVE NEGATI VE Urine amphetamines detection by screening method N EGATIVE NEGATIVE Urine methamphetamine detection by screening method NEGATIVE NEGATIVE Urine cannabinoids detection by screening method N EGATIVE NEGATIVE Urine opiates detection by screening method NEGATI VE NEGATIVE Urine barbiturates detection NEGATIVE N EGATIVE Screening urine tricyclic antidepressants detection NEGATIVE NEGATIVE Urine methadone detection by screening method NEGA TIVE NEGATIVE Urine oxycodone detection NEGATIVE NEGA TIVE Urine propoxyphene detection NEGATIVE N EGATIVE Complete urinalysis with reflex to cultu re - 04/16/19 22:38 Urine color determination DEQUAN NRG Urine clarity determination SLIGHTLY CLOUDY NRG Urine pH measurement by test strip 6 5-9 Specific gravity of urine by test strip 1.015 1.016-1.022 Urine protein assay by test strip, semi-quantitative 1+ NEGATIVE Urine glucose detection by automated test strip NE GATIVE NEGATIVE Erythrocytes detection in urine sediment by light micr oscopy 2+ NEGATIVE Urine ketones detection by automated test strip 1+ NEGATIVE Urine nitrite detection by test strip NEGATIVE NEGATIVE Urine total bilirubin detection by test strip NEGA TIVE NEGATIVE Urine urobilinogen measurement by automated test strip (mass/volume) NORMAL NORMAL Urine leukocyte esterase detection by dipstick 2+ NEGATIVE Automated urine sediment erythrocyte cou nt by microscopy (number/high power field) [HPF] NRG Automated urine sediment leukocyte count by microscopy (number/high power field) [HPF] NRG Bacteria detection in urine sediment by light microsco py FEW NRG Crystals detection in urine sediment by light microsco py NONE NRG Casts detection in urine sediment by light microscopy NONE NRG Mucus detection in urine sediment by light microscopy SMALL NRG Complete urinalysis with reflex to culture YES NRG Urine drug screening test - 04/16/19 22: 38 Urine phencyclidine detection by screening method NEGATIVE NEGATIVE Urine benzodiazepines detection by screening method POSITIVE NEGATIVE Urine cocaine detection NEGATIVE NEGATI VE Urine amphetamines detection by screening method N EGATIVE NEGATIVE Urine methamphetamine detection by screening method NEGATIVE NEGATIVE Urine cannabinoids detection by screening method N EGATIVE NEGATIVE Urine opiates detection by screening method NEGATI VE NEGATIVE Urine barbiturates detection NEGATIVE N EGATIVE Screening urine tricyclic antidepressants detection NEGATIVE NEGATIVE Urine methadone detection by screening method NEGA TIVE NEGATIVE Urine oxycodone detection NEGATIVE NEGA TIVE Urine propoxyphene detection NEGATIVE N EGATIVE Bacterial urine culture - 04/16/19 22:38 Bacterial urine culture NG NRG Complete blood count (CBC) with automate d white blood cell (WBC) differential - 04/16/19 22:45 Blood leukocytes automated count (number/volume) 13.0 10*3/uL 4.3-11.0 Blood erythrocytes automated count (number/volume) 4.29 10*6/uL 4.35-5.85 Venous blood hemoglobin measurement (mass/volume) 10.9 g/dL 11.5-16.0 Blood hematocrit (volume fraction) 34 % 35-52 Automated erythrocyte mean corpuscular volume 79 [ foz_us] 80-99 Automated erythrocyte mean corpuscular h emoglobin (mass per erythrocyte) 25 pg 25-34 Automated erythrocyte mean corpuscular h emoglobin concentration measurement (mass/volume) 32 g/dL 32-36 Automated erythrocyte distribution width ratio 14. 2 % 10.0- 14.5 Automated blood platelet count (count/volume) 326 10*3/uL 130-400 Automated blood platelet mean volume measurement 10.4 [foz_us] 7.4-10.4 Automated blood neutrophils/100 leukocytes 73 % 42-75 Automated blood lymphocytes/100 leukocytes 18 % 12-44 Blood monocytes/100 leukocytes 8 % 0-12 Automated blood eosinophils/100 leukocytes 1 % 0-10 Automated blood basophils/100 leukocytes 0 % 0-10 Blood neutrophils automated count (number/volume) 9.5 10*3 1.8-7.8 Blood lymphocytes automated count (number/volume) 2.3 10*3 1.0-4.0 Blood monocytes automated count (number/volume) 1. 0 10*3 0.0-1.0 Automated eosinophil count 0.1 10*3/uL 0 .0-0.3 Automated blood basophil count (count/volume) 0.0 10*3/uL 0.0-0.1 Serum or plasma choriogonadotropin (preg yeimi test) detection - 09/23/19 22:45 Serum or plasma choriogonadotropin ( test) de tection NEGATIVE NEGATIVE Comprehensive metabolic panel - 04/16/19 22:45 Serum or plasma sodium measurement (moles/volume) 137 mmol/L 135-145 Serum or plasma potassium measurement (moles/volume) 3.4 mmol/L 3.6-5.0 Serum or plasma chloride measurement (moles/volume) 108 mmol/L 98-107 Carbon dioxide 19 mmol/L 21-32 Serum or plasma anion gap determination (moles/volume) 10 mmol/L 5-14 Serum or plasma urea nitrogen measurement (mass/volume ) 8 mg/dL 7-18 Serum or plasma creatinine measurement (mass/volume) 0.68 mg/dL 0.60-1.30 Serum or plasma urea nitrogen/creatinine mass ratio 12 NRG Serum or plasma creatinine measurement w ith calculation of estimated glomerular filtration rate > NRG Serum or plasma glucose measurement (mass/volume) 86 mg/dL 70-105 Serum or plasma calcium measurement (mass/volume) 9.1 mg/dL 8.5-10.1 Serum or plasma total bilirubin measurement (mass/volu me) 0.4 mg/dL 0.1-1.0 Serum or plasma alkaline phosphatase louise surement (enzymatic activity/volume) 78 U/L 40-136 Serum or plasma aspartate aminotransfera se measurement (enzymatic activity/volume) 17 U/L 5-34 Serum or plasma alanine aminotransferase measurement (enzymatic activity/volume) 7 U/L 0-55 Serum or plasma protein measurement (mass/volume) 8.5 g/dL 6.4-8.2 Serum or plasma albumin measurement (mass/volume) 4.4 g/dL 3.2-4.5 CALCIUM CORRECTED 8.8 mg/dL 8.5-10.1 Magnesium - 04/16/19 22:45 Magnesium 1.8 mg/dL 1.6-2.4 Serum or plasma thyrotropin measurement by detection limit <=0.05 miu/l (units/volume) - 04/16/19 22:45 Serum or plasma thyrotropin measurement by detection limit <=0.05 miu/l (units/volume) 1.91 u[iU]/mL 0.35-4.94 Serum or plasma salicylates measurement (mass/volume) - 04/16/19 22:45 Serum or plasma salicylates measurement (mass/volume) < mg/dL 5.0-20.0 Serum or plasma acetaminophen measuremen t (mass/volume) - 04/16/19 22:45 Serum or plasma acetaminophen measurement (mass/volume ) < ug/mL 10-30 Serum or plasma ethanol measurement (mas s/volume) - 04/16/19 22:45 Serum or plasma ethanol measurement (mass/volume) < mg/dL <10 CULTURE, URINE - 10/20/19 09:23 CULTURE, URINE, ROUTINE SEE NOTE NRG Encounters ACCT No. Visit Date/Time Discharge Status Pt. Type Provider Facility Loc./Unit Complaint [id number] 10/06/2013 10:13:00 10/06/2013 23:59: 59 CLS Outpatient LILLY SHAWN Alana [id number] 02/26/2013 16:28:00 Document Registration [id number] 01/11/2015 03:58:23 ACT Document Registration [id number] 10/20/2019 13:35:00 10/20/2019 23:59:5 9 CLS [facility] [id number] 10/20/2019 13:35:00 Document Registration [id number] 04/16/2019 22:16:00 019 23:55:00 DIS Emergency ABBIE GALAVIZ DO Vi a [facility] ER ANXIETY [id number] 02/24/2019 03:42:00 06:51:00 DIS Emergency JEREMY SKELTON MD Via [facility] ER UPPER ABD PAIN [id number] 09/29/2018 08:14:00 019 23:59:59 CLS Outpatient AZ SEXTON MD Via [facility] RAD THYROID NODULE [id number] 12/05/2017 15:05:00 018 23:59:59 CLS Outpatient AZ SEXTON MD Via [facility] RAD RT NECK MASS,RT NECK PA IN [id number] 11/28/2017 12:53:00 018 23:59:59 CLS Outpatient 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 Via [facility] OCC LEFT SHOULDER STRAIN [id number] 07/23/2017 17:36:00 017 19:16:00 DIS Emergency TRISTAN RICHARD Via [facility] ER FLU SYPTOMS,FEVER [id number] 02/17/2017 13:01:00 017 23:59:59 CLS Outpatient AZ SEXTON MD Via [facility] RAD HEADACHE [id number] 02/12/2017 06:56:00 017 08:40:00 DIS Emergency SAYDA CORDOBA MD Via [facility] ER PROBLEMS W/HIGH BLOOD P RESSURE,YING [id number] 10/21/2016 08:35:00 017 23:59:59 CLS Outpatient AZ SEXTON MD Via [facility] RAD E04.1 [id number] 09/06/2016 09:23:00 017 11:35:00 DIS Outpatient STEPHEN JULIEN MD Via [facility] ENDO DYSPHAGIA [id number] 09/03/2016 05:35:00 017 23:59:59 CLS Outpatient ANAYA MAZARIEGOS, STEPHEN [place] Via [facility] PREOP DYSPHAGIA [id number] 03/29/2016 14:37:00 016 18:08:00 DIS Emergency HEATHER MAZARIEGOS, POLINA [place] Via [facility] ER LOWER RIGHT CORNEL E ABD PAIN [id number] 02/29/2016 14:09:00 016 15:26:00 DIS Emergency TRISTAN RICHARD Via [facility] ER R SIDE PAIN [id number] 12/04/2015 16:05:00 016 23:59:59 CLS Outpatient GEORGES MAZARIEGOS, MORE [place] Via [facility] RAD SWELLING IN THROAT [id number] 09/29/2015 12:00:00 016 14:01:00 DIS Emergency SANDRA PEREZ DO Via [facility] ER RIGHT SIDE CHEST PAIN [id number] 01/10/2015 11:55:00 015 10:40:00 DIS Outpatient ADA MAZARIEGOS, KAY [place] Via [facility] SDC RECTOCELE [id number] 01/03/2015 15:34:00 015 23:59:59 CLS Outpatient ADA MAZARIEGOS, KAY [place] [facility] PREOP RECTOCELE [id number] 05/13/2014 13:15:00 014 23:59:59 CLS Outpatient MORE SU MD Via [facility] RAD SURVEY [id number] 04/29/2014 22:04:00 23:09:00 DIS Emergency HEATHER MAZARIEGOS, POLINA [place] Via [facility] ER ABD PAIN [id number] 02/21/2014 10:13:00 23:59:59 CLS Outpatient MORE SU MD Via [facility] RAD SIZE/DATE DISCREPENCY [id number] 08/05/2013 17:59:00 11:30:00 DIS Outpatient SANDRA SAMPSON MD Via [facility] SDC APPENDICITIS [id number] 09/17/2014 00:15:00 Document Registration [id number] 09/16/2014 10:57:00 Document Registration [id number] 03/26/2011 11:11:00 Document Registration [id number] 01/15/2011 14:08:00 Document Registration [id number] 08/05/2013 20:20:00 11:30:00 DIS Outpatient
[2019-10-26 12:52] LABS: BILIRUBIN,URINE NEGATIVE (NEGATIVE); CLARITY,URINE CLEAR; COLOR,URINE YELLOW; GLUCOSE, URINE (UA) NEGATIVE (NEGATIVE); KETONES,URINE NEGATIVE (NEGATIVE); LEUKOCYTE ESTERASE ,URINE 1+ (NEGATIVE); NITRITE,URINE NEGATIVE (NEGATIVE); PROTEIN,URINE NEGATIVE (NEGATIVE)
[2019-10-26 12:58] LABS: BACTERIA,URINE MODERATE /HPF
[2019-10-26 13:12] LABS: BASOPHILS % (AUTO) 0 % (0-10); EOSINOPHILS # (AUTO) 0.1 10^3/uL (0.0-0.3); EOSINOPHILS % (AUTO) 1 % (0-10); HEMATOCRIT 34 % (35-52); LYMPHOCYTES # (AUTO) 1.9 X 10^3 (1.0-4.0); LYMPHOCYTES % (AUTO) 17 % (12-44); MEAN CORPUSCULAR HEMOGLOBIN 25 PG (25-34); MEAN CORPUSCULAR HGB CONC 32 G/DL (32-36); MEAN CORPUSCULAR VOLUME 77 FL (80-99); MEAN PLATELET VOLUME 10.1 FL (7.4-10.4); MONOCYTES # (AUTO) 0.7 X 10^3 (0.0-1.0); MONOCYTES % (AUTO) 7 % (0-12); NEUTROPHILS % (AUTO) 75 % (42-75); PLATELET COUNT 314 10^3/uL (130-400); RED CELL DISTRIBUTION WIDTH 14.4 % (10.0-14.5); WHITE BLOOD COUNT 10.7 10^3/uL (4.3-11.0)
[2019-10-26] MEDS ORDERED: PHEN-639 PO (13:16)
--- NOTE | 2019-10-26 13:16 | ED GI ---
General Chief Complaint: Abdominal/GI Problems Stated Complaint: ABDOMINAL PAIN;UTI Nursing Triage Note: pt states she went to the walkin clinic on tuesday for yeast infection. Per her UA, they called and told her she had a UTI and started her on Macrobid 100 mg BID, pt has had 2 doses. Pt states that the abdominal started last night and she passed out in shower and pt states she hit her head. Pt then stated she tried to get out of the shower and ask her boyfriend for help and passed out again. Sepsis Screen: No Definite Risk Source of Information: Patient Exam Limitations: No Limitations History of Present Illness Date Seen by Provider: Oct 26, 2019 Time Seen by Provider: 13:12 Initial Comments To ER with reports of suprapubic abdominal pain. She was initially seen at [facility] urgent care on Tuesday last week for yeast infection. She was given medication which did resolve his symptoms. She had a urinalysis done at the same time and was called yesterday and told that her urinalysis indicated infection, she was called in Macrobid. She's had 2 doses of that. Last night while in the shower she became nauseous and "passed out. She has no headache today. She did not vomit. No fevers. No confusion. She reports suprapubic abdominal pain, not left or right sided. Timing/Duration: 2-3 Days Severity/Quality: Moderate Location: Suprapubic Radiation: No Radiation Activities at Onset: None Associated Symptoms: Nausea/Vomiting (nausea without vomiting) Allergies and Home Medications Allergies Coded Allergies: No Known Drug Allergies (Unverified , 02/29/16) Home Medications Ciprofloxacin HCl 500 Mg Tablet, 500 MG PO BID Prescribed by: ABBIE GALAVIZ on 04/16/192343 Metronidazole 500 Mg Tablet, 500 MG PO QID Prescribed by: ABBIE GALAVIZ on 04/16/192343 Patient Home Medication List Home Medication List Reviewed: Yes Review of Systems Review of Systems Constitutional: see HPI; No chills, No fever EENTM: No Symptoms Reported Respiratory: No Symptoms Reported Cardiovascular: No Symptoms Reported Gastrointestinal: See HPI, Abdominal Pain; Denies Diarrhea; Nausea Genitourinary: See HPI, Pain Musculoskeletal: no symptoms reported Skin: no symptoms reported Psychiatric/Neurological: No Symptoms Reported Endocrine: No Symptoms Reported Hematologic/Lymphatic: No Symptoms Reported Past Pyiixao-Kdjqvi-Uvxgmf Hx Patient Social History Alcohol Use: Occasionally Uses Recreational Drug Use: No Smoking Status: Never a Smoker 2nd Hand Smoke Exposure: No Recent Foreign Travel: No Contact w/Someone Who Travel: No Recent Infectious Disease Expo: No Recent Hopitalizations: No Immunizations Up To Date Tetanus Booster (TDap): Unknown PED Vaccines UTD: Yes Date of Influenza Vaccine: Aug 08, 2019 Seasonal Allergies Seasonal Allergies: No Past Medical History Surgeries: Yes Appendectomy Respiratory: No Cardiac: No Neurological: No : No Last Menstrual Period: Nov 02, 2018 Reproductive Disorders: No Female Reproductive Disorders: Denies [employer] History: IUD Sexually Transmitted Disease: No HIV/AIDS: No Genitourinary: Yes Bladder Infection Gastrointestinal: Yes (DYSPHAGIA) Gastroesophageal Reflux Musculoskeletal: No Endocrine: Yes (THYROID NODULE) HEENT: No Cancer: No Psychosocial: Yes Anxiety Integumentary: No Blood Disorders: No Adverse Reaction/Blood Tranf: No Family Medical History Family history: Diabetes mellitus Paternal Grandmother No Family History of: AIDS Abdominal aortic aneurysm Abdominal aortic aneurysm Acute appendicitis Trousdale's disease Trousdale's disease Alcoholism Alcoholism Alzheimer's disease Aphasia Aphasia Arthritis Asthma Cancer Cancer of colon Cancer of mouth Cardiovascular disease Cataract Cataracts Chest pain Colon cancer Completed stroke Congenital disease Congenital heart disease Congenital heart disease Congestive heart failure Coronary thrombosis Cystic fibrosis Cystic fibrosis Deafness or hearing loss Dementia Dementia Diabetes mellitus Drug abuse Dysphagia Dysphasia Family history: Allergy Family history: Alzheimer's disease Family history: Arthritis Family history: Asthma Family history: Breast disease Family history: Cardiovascular disease Family history: Coronary thrombosis Family history: Gastrointestinal disease Family history: Glaucoma Family history: Hypertension Family history: Osteoporosis Family history: Thyroid disorder Fibrocystic disease of breast Gastroenteritis Glaucoma Headache Headache disorder Hearing loss Heart disease Hereditary disease History of - anemia History of - disorder History of - respiratory disease History of drug abuse Human immunodeficiency virus (HIV) seropositivity Hypercholesterolemia Hypercholesterolemia Hypertension Infertile Infertility Kidney disease Kidney disease Malignant neoplasm of lung Myocardial infarction Myocardial infarction Neoplasm Not obtainable due to adoption Osteoporosis Parkinson's disease Parkinson's disease Prostate cancer Psychosocial problem Psychotic disorder Respiratory disorder Right lower quadrant pain Seizure disorder Seizure disorder Severe allergy Stroke Thyroid disease Tuberculosis Tuberculosis Visual disorder Visual impairment No Pertinent Family Hx Physical Exam Vital Signs Vital Signs - First Documented 10/26/19 12:28 Temp 36.0 Pulse 107 Resp 16 B/P (MAP) 119/96 (104) Capillary Refill : Less Than 3 Seconds Height/Weight/BMI Height: 5'3.00" Weight: 125lbs. 0.0oz. [id number]; 21.00 BMI Method:Stated General Appearance: WD/WN, no apparent distress HEENT: PERRL/EOMI, normal ENT inspection Neck: non-tender, full range of motion Respiratory: no respiratory distress, no accessory muscle use Gastrointestinal: normal bowel sounds, soft, tenderness (suprapubic) Extremities: normal range of motion, non-tender Neurologic/Psychiatric: alert, normal mood/affect, oriented x 3 Skin: normal color, warm/dry Progress/Results/Core Measures Results/Orders Lab Results Laboratory Tests Test 10/26/19 12:48 10/26/19 13:03 Range/Units Urine Color YELLOW Urine Clarity CLEAR Urine pH 5.0 5-9 Urine Specific [place] 1.015 L 1.016-1.022 Urine Protein NEGATIVE NEGATIVE Urine Glucose (UA) NEGATIVE NEGATIVE Urine Ketones NEGATIVE NEGATIVE Urine Nitrite NEGATIVE NEGATIVE Urine Bilirubin NEGATIVE NEGATIVE Urine Urobilinogen 0.2 < = 1.0 MG/DL Urine Leukocyte Esterase 1+ H NEGATIVE Urine RBC (Auto) NEGATIVE NEGATIVE Urine RBC NONE /HPF Urine WBC 5-10 H /HPF Urine Squamous Epithelial Cells 10-25 H /HPF Urine Crystals NONE /LPF Urine Bacteria MODERATE H /HPF Urine Casts NONE /LPF Urine Mucus NEGATIVE /LPF Urine Culture Indicated YES My Orders Orders - ALEJANDRA CALVIN APRN Ua Culture If Indicated (10/26/19 12:25) Urine Bedside (10/26/19 12:25) Cbc With Automated Diff (10/26/19 12:47) Comprehensive Metabolic Panel (10/26/19 12:47) Ed Iv/Invasive Line Start (10/26/19 12:47) Urine Culture (10/26/19 12:48) Vital Signs/I&O 10/26/19 12:28 Temp 36.0 Pulse 107 Resp 16 B/P (MAP) 119/96 (104) Blood Pressure Mean: 104 Departure Impression Primary Impression: Urinary tract infection Qualified Codes: N30.00 - Acute cystitis without hematuria Disposition: HOME, SELF-CARE Condition: Stable Departure-Patient Inst. Decision time for Depature: 13:14 Referrals: AZ SEXTON MD (PCP/Family) Primary Care Physician Patient Instructions: Urinary Tract Infection, Adult (DC) Add. Discharge Instructions: 1. The Pyridium (per nasal.) Will turn your urine a dark [place] color. Do not let this alarm you. Continue to take the Macrobid antibiotics. The shot of antibiotics given in the emergency room will also help cure this a bit faster. Return to ER for any fevers or intolerable pain. All discharge instructions reviewed with patient and/or family. Voiced understanding. Scripts Phenazopyridine HCl (Pyridium) 100 Mg Tablet 100 MG PO TID, #6 TAB Prov: ALEJANDRA CALVIN APRN 10/26/19 ALEJANDRA CALVIN APRN Oct 26, 2019 13:16
[2019-10-26 13:29] LABS: ALANINE AMINOTRANSFERASE 13 U/L (0-55); ALBUMIN 4.6 GM/DL (3.2-4.5); ALKALINE PHOSPHATASE 82 U/L (40-136); BILIRUBIN,TOTAL 0.4 MG/DL (0.1-1.0); BUN/CREATININE RATIO 10; CALCIUM 9.5 MG/DL (8.5-10.1); CARBON DIOXIDE 20 MMOL/L (21-32); CHLORIDE 106 MMOL/L (98-107); CREATININE SERUM 0.71 MG/DL (0.60-1.30); GFR ESTIMATED > 60; GLUCOSE 92 MG/DL (70-105); SODIUM 137 MMOL/L (135-145)
[2019-10-26] MEDS ORDERED: LIDOCAINE 1% INJ 20 ML 20 ML VIAL INJ ONE (13:30)
[2019-10-26] MEDS ORDERED: PHENAZOPYRIDINE 100 MG (PYRIDIUM) TABLET PO ONE (13:30)
[2019-10-26] MEDS ORDERED: cefTRIAXone 1,000 MG/2.86 ml vial (IM ONLY) IM SCH (13:30)
[2019-10-26 13:44] VITALS: BP 116/78
== END 2019-10-26 13:46 | disposition home or self-care (01) ==
LOC: EDUNIT# 12:19 → ER 12:20
DX: N30.00 Acute cystitis without hematuria (principal); K21.9 Gastro-esophageal reflux disease without esophagitis; F41.9 Anxiety disorder, unspecified
CPT/HCPCS: 36415; 80053; 81000; 84703; 85025; 87077; 87088; 99284

== ENCOUNTER 2021-04-19 01:25 | Emergency (ER) | payer BC, MEDICAID ==
[~2021-04-19] VITALS: Ht 160 cm; Wt 56.7 kg
[~2021-04-19 01:25] MED LIST changes: +PANT20TA18 PO; -PANT20TA3 PO; +PHEN-639 PO
--- NOTE | 2021-04-19 01:54 | ED GU-Female ---
General Chief Complaint: - Reproductive Stated Complaint: VAGINAL BLEEDING 8 WKS Source: patient Exam Limitations: no limitations History of Present Illness Date Seen by Provider: Apr 19, 2021 Time Seen by Provider: 01:30 Initial Comments Patient to the ER by private conveyance from home with chief complaint of suprapubic abdominal cramping and bleeding starting tonight around 10:00. She just got home from a flight and saw some bright red blood streaking on wiping after urinating. She has not take anything for the pain and does not want anything right now. She is 7 weeks and 6 days with an LMP of 02/23/2021. She is to follow-up with Dr. Ponce with her first appointment next week. She has not had an ultrasound before. She did have blood work done last week but has not reviewed it with him yet. She is a G2, P1 with no significant medical history on vitamins. Allergies and Home Medications Allergies Coded Allergies: No Known Drug Allergies (Unverified , 02/29/16) Patient Home Medication List Home Medication List Reviewed: Yes Ciprofloxacin HCl (Cipro) 500 Mg Tablet, 500 MG PO BID Prescribed by: ABBIE GALAVIZ on 04/16/19 234 Lorazepam (Lorazepam) 0.5 Mg Tablet, (Reported) Entered as Reported by: AALIYAH RITCHIE on 04/16/192230 Metronidazole (Metronidazole) 500 Mg Tablet, (Reported) Entered as Reported by: AALIYAH RITCHIE on 04/16/192230 Metronidazole (Flagyl) 500 Mg Tablet, 500 MG PO QID Prescribed by: ABBIE GALAVIZ on 04/16/19 2344 Norgestimate-Ethinyl Estradiol (Sprintec 28 Day Tablet) 1 Each Tablet, (Reported) Entered as Reported by: AALIYAH RITCHIE on 04/16/192230 Phenazopyridine HCl (Pyridium) 100 Mg Tablet, 100 MG PO TID Prescribed by: ALEJANDRA CALVIN on 10/26/19 1316 Review of Systems Review of Systems Constitutional: No chills, No diaphoresis EENTM: No ear discharge, No ear pain Respiratory: No cough, No short of breath Cardiovascular: No edema, No Hx of Intervention, No palpitations Gastrointestinal: abdominal pain; No constipation, No diarrhea, No nausea, No vomiting Genitourinary: denies burning, denies discharge : Yes LMP: Feb 23, 2021 Musculoskeletal: No back pain, No joint pain All Other Systemes Reviewed Negative Unless Noted: Yes Past Pyhmcpu-Wegxno-Mtstsk Hx Patient Social History Tobacco Use?: No Use of E-Cig and/or Vaping dev: No Alcohol Use?: No Immunizations Up To Date Tetanus Booster (TDap): Unknown PED Vaccines UTD: Yes Seasonal Allergies Seasonal Allergies: No Past Medical History Surgeries: Yes Appendectomy Respiratory: No Cardiac: No Neurological: No Reproductive Disorders: No Female Reproductive Disorders: 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 Sexually Transmitted Disease: No HIV/AIDS: No Genitourinary: Yes Bladder Infection Gastrointestinal: Yes (DYSPHAGIA) Gastroesophageal Reflux Musculoskeletal: No Endocrine: Yes (THYROID NODULE) HEENT: No Cancer: No Psychosocial: Yes Anxiety Integumentary: No Blood Disorders: No Adverse Reaction/Blood Tranf: No Family Medical History Family history: Diabetes mellitus Paternal Grandmother No Family History of: AIDS Abdominal aortic aneurysm Abdominal aortic aneurysm Acute appendicitis Shaggy's disease Shaggy's disease Alcoholism Alcoholism Alzheimer's disease Aphasia Aphasia Arthritis Asthma Cancer Cancer of colon Cancer of mouth Cardiovascular disease Cataract Cataracts Chest pain Colon cancer Completed stroke Congenital disease Congenital heart disease Congenital heart disease Congestive heart failure Coronary thrombosis Cystic fibrosis Cystic fibrosis Deafness or hearing loss Dementia Dementia Diabetes mellitus Drug abuse Dysphagia Dysphasia Family history: Allergy Family history: Alzheimer's disease Family history: Arthritis Family history: Asthma Family history: Breast disease Family history: Cardiovascular disease Family history: Coronary thrombosis Family history: Gastrointestinal disease Family history: Glaucoma Family history: Hypertension Family history: Osteoporosis Family history: Thyroid disorder Fibrocystic disease of breast Gastroenteritis Glaucoma Headache Headache disorder Hearing loss Heart disease Hereditary disease History of - anemia History of - disorder History of - respiratory disease History of drug abuse Human immunodeficiency virus (HIV) seropositivity Hypercholesterolemia Hypercholesterolemia Hypertension Infertile Infertility Kidney disease Kidney disease Malignant neoplasm of lung Myocardial infarction Myocardial infarction Neoplasm Not obtainable due to adoption Osteoporosis Parkinson's disease Parkinson's disease Prostate cancer Psychosocial problem Psychotic disorder Respiratory disorder Right lower quadrant pain Seizure disorder Seizure disorder Severe allergy Stroke Thyroid disease Tuberculosis Tuberculosis Visual disorder Visual impairment No Pertinent Family Hx Physical Exam Vital Signs Vital Signs - First Documented 04/19/21 01:39 Temp 36.0 Pulse 91 Resp 16 B/P (MAP) 134/104 (114) Pulse Ox 100 O2 Delivery Room Air Capillary Refill : Height, Weight, BMI Height: 5'3.00" Weight: 125lbs. 0.0oz. [id number]; 21.00 BMI Method:Stated General Appearance: WD/WN, mild distress HEENT: PERRL/EOMI, pharynx normal Neck: full range of motion, normal inspection Cardiovascular: normal peripheral pulses, regular rate, rhythm Respiratory: no respiratory distress, no accessory muscle use Gastrointestinal: normal bowel sounds, soft, tenderness (Suprapubic region) Extremities: normal range of motion, normal inspection, normal capillary refill Neurologic/Psychiatric: alert, normal mood/affect, oriented x 3 Skin: normal color, warm/dry Progress/Results/Core Measures Suspected Sepsis SIRS Temperature: Pulse: Respiratory Rate: Laboratory Tests 04/19/21 01:57: White Blood Count 9.6 Blood Pressure / Mean: Laboratory Tests 04/19/21 01:57: Creatinine 0.69, Platelet Count 329, Total Bilirubin 0.2 Results/Orders Lab Results Laboratory Tests Test 04/19/21 01:57 Range/Units White Blood Count 9.6 4.3-11.0 10^3/uL Red Blood Count 4.52 3.80-5.11 10^6/uL Hemoglobin 11.9 11.5-16.0 g/dL Hematocrit 38 35-52 % Mean Corpuscular Volume 84 80-99 fL Mean Corpuscular Hemoglobin 26 25-34 pg Mean Corpuscular Hemoglobin Concent 32 32-36 g/dL Red Cell Distribution Width 13.0 10.0-14.5 % Platelet Count 329 130-400 10^3/uL Mean Platelet Volume 10.2 9.0-12.2 fL Immature Granulocyte % (Auto) 0 % Neutrophils (%) (Auto) 59 42-75 % Lymphocytes (%) (Auto) 33 12-44 % Monocytes (%) (Auto) 6 0-12 % Eosinophils (%) (Auto) 1 0-10 % Basophils (%) (Auto) 0 0-10 % Neutrophils # (Auto) 5.7 1.8-7.8 10^3/uL Lymphocytes # (Auto) 3.2 1.0-4.0 10^3/uL Monocytes # (Auto) 0.6 0.0-1.0 10^3/uL Eosinophils # (Auto) 0.1 0.0-0.3 10^3/uL Basophils # (Auto) 0.0 0.0-0.1 10^3/uL Immature Granulocyte # (Auto) 0.0 0.0-0.1 10^3/uL Urine Color YELLOW Urine Clarity CLEAR Urine pH 6.5 5-9 Urine Specific [place] 1.010 L 1.016-1.022 Urine Protein NEGATIVE NEGATIVE Urine Glucose (UA) NEGATIVE NEGATIVE Urine Ketones NEGATIVE NEGATIVE Urine Nitrite NEGATIVE NEGATIVE Urine Bilirubin NEGATIVE NEGATIVE Urine Urobilinogen 0.2 < = 1.0 MG/DL Urine Leukocyte Esterase TRACE H NEGATIVE Urine RBC (Auto) TRACE-I NEGATIVE Urine RBC RARE /HPF Urine WBC 0-2 /HPF Urine Squamous Epithelial Cells 0-2 /HPF Urine Crystals NONE /LPF Urine Bacteria TRACE /HPF Urine Casts NONE /LPF Urine Mucus NEGATIVE /LPF Urine Culture Indicated NO Sodium Level 140 135-145 MMOL/L Potassium Level 3.3 L 3.6-5.0 MMOL/L Chloride Level 107 98-107 MMOL/L Carbon Dioxide Level 23 21-32 MMOL/L Anion Gap 10 5-14 MMOL/L Blood Urea Nitrogen 5 L 7-18 MG/DL Creatinine 0.69 0.60-1.30 MG/DL Estimat Glomerular Filtration Rate 106 BUN/Creatinine Ratio 7 Glucose Level 105 70-105 MG/DL Calcium Level 9.2 8.5-10.1 MG/DL Corrected Calcium 9.2 8.5-10.1 MG/DL Total Bilirubin 0.2 0.1-1.0 MG/DL Aspartate Amino Transf (AST/SGOT) 19 5-34 U/L Alanine Aminotransferase (ALT/SGPT) 13 0-55 U/L Alkaline Phosphatase 56 40-136 U/L Total Protein 7.9 6.4-8.2 GM/DL Albumin 4.0 3.2-4.5 GM/DL Human Chorionic Gonadotropin, Quant 02513 H <5 MIU/ML My Orders Orders - JEREMY SKELTON Cbc With Automated Diff (04/19/21 01:49) Hcg,Quantitative (04/19/21 01:49) Abo Rh Type (04/19/21 01:49) Comprehensive Metabolic Panel (04/19/21 01:49) Ua Culture If Indicated (04/19/21 01:49) Urine Bedside (04/19/21 01:49) Vital Signs/I&O 04/19/21 01:39 Temp 36.0 Pulse 91 Resp 16 B/P (MAP) 134/104 (114) Pulse Ox 100 O2 Delivery Room Air Capillary Refill : Progress Note : Time: 01:52 Progress Note For trimester nontraumatic vaginal bleeding with some midline suprapubic abdominal cramping. No previous imaging so ectopic has not been ruled out. She does not want a thing for pain. She does not seem to be having any significant evidence of anemia based on her clinical exam but we will check some labs including an hCG ABO Rh and urinalysis. We have discussed sending her to [facility] for ultrasound rule out ectopic . We will not have ultrasound available here until Tuesday morning. Departure Impression Primary Impression: Vaginal bleeding in patient after first trimester Additional Impressions: Pelvic pain in [place] sore Disposition: 02 XFER SHT-TRM HOSP Condition: Stable Transfer Transfer Reason: Exceeds level of care Time Spoke to Accepting Phy: 03:20 Transfer Progress Notes Discussed the case with Dr. Florence at [facility] ED and he agrees to accept the patient into the ED to get an ultrasound to rule out ectopic. Transfer Facility: [place], [place] Method of Transfer: Private Vehicle (Self) Departure-Patient Inst. Referrals: [place] SEXTON MD (PCP/Family) Primary Care Physician Scripts Acyclovir (Acyclovir) 800 Mg Tablet 800 MG PO 5XD for 7 Days, #35 TAB 0 Refills Prov: JEREMY SKELTON 04/19/21 JEREMY SKELTON Apr 19, 2021 01:54
[2021-04-19 02:05] LABS: BILIRUBIN,URINE NEGATIVE (NEGATIVE); CLARITY,URINE CLEAR; COLOR,URINE YELLOW; GLUCOSE, URINE (UA) NEGATIVE (NEGATIVE); KETONES,URINE NEGATIVE (NEGATIVE); LEUKOCYTE ESTERASE ,URINE TRACE (NEGATIVE); NITRITE,URINE NEGATIVE (NEGATIVE); PH,URINE 6.5 (5-9); PROTEIN,URINE NEGATIVE (NEGATIVE)
[2021-04-19 02:11] LABS: BASOPHILS % (AUTO) 0 % (0-10); EOSINOPHILS # (AUTO) 0.1 10^3/uL (0.0-0.3); EOSINOPHILS % (AUTO) 1 % (0-10); HEMATOCRIT 38 % (35-52); HEMOGLOBIN 11.9 g/dL (11.5-16.0); LYMPHOCYTES # (AUTO) 3.2 10^3/uL (1.0-4.0); LYMPHOCYTES % (AUTO) 33 % (12-44); MEAN CORPUSCULAR HEMOGLOBIN 26 pg (25-34); MEAN CORPUSCULAR HGB CONC 32 g/dL (32-36); MEAN CORPUSCULAR VOLUME 84 fL (80-99); MEAN PLATELET VOLUME 10.2 fL (9.0-12.2); MONOCYTES # (AUTO) 0.6 10^3/uL (0.0-1.0); MONOCYTES % (AUTO) 6 % (0-12); NEUTROPHILS # (AUTO) 5.7 10^3/uL (1.8-7.8); NEUTROPHILS % (AUTO) 59 % (42-75); PLATELET COUNT 329 10^3/uL (130-400); WHITE BLOOD COUNT 9.6 10^3/uL (4.3-11.0)
[2021-04-19 02:16] LABS: POTASSIUM 3.3 MMOL/L (3.6-5.0)
[2021-04-19 02:17] LABS: CALCIUM 9.2 MG/DL (8.5-10.1)
[2021-04-19 02:18] LABS: BACTERIA,URINE TRACE /HPF; RBC,URINE RARE /HPF; SQUAMOUS EPITHELIAL CELL,UR 0-2 /HPF; TOTAL PROTEIN 7.9 GM/DL (6.4-8.2); WBC,URINE 0-2 /HPF
[2021-04-19 02:20] LABS: BILIRUBIN,TOTAL 0.2 MG/DL (0.1-1.0)
[2021-04-19 02:21] LABS: CREATININE SERUM 0.69 MG/DL (0.60-1.30)
[2021-04-19] MEDS ORDERED: ACYC-112 PO (03:29)
[2021-04-19 03:48] VITALS: BP 140/98
== END 2021-04-19 03:46 | disposition short-term general hospital (02) ==
LOC: EDUNIT# 01:25 → ER 01:27
DX: O46.91 Antepartum hemorrhage, unspecified, first trimester (principal); R10.2 Pelvic and perineal pain; B00.9 Herpesviral infection, unspecified; F41.9 Anxiety disorder, unspecified; Z3A.01 Less than 8 weeks gestation of pregnancy; Z79.899 Other long term (current) drug therapy
CPT/HCPCS: 36415; 80053; 81000; 84702; 85025; 86900; 86901

== ENCOUNTER 2021-04-22 12:04 | Day surgery (SDC) | payer BC, MEDICAID ==
[2021-04-22] VITALS (11 sets, daily range): BP systolic 94–128; BP diastolic 56–93
[~2021-04-22] VITALS: Ht 160 cm; Wt 57.3 kg
[~2021-04-22 12:04] MED LIST changes: +ACYC-112 PO
[2021-04-22] MEDS ORDERED: MIDAZOLAM 2 MG/2 ML (VERSED) VIAL ONE (14:29)
[2021-04-22] MEDS ORDERED: fentaNYL INJ 100 MCG/2 ML AMP ONE (14:29)
[2021-04-22] MEDS ORDERED: LIDOCAINE PF 2% 5 ML (XYLOCAINE) VIAL ONE (14:29)
[2021-04-22] MEDS ORDERED: ONDANSETRON 4 MG/2 ML (SDV) Z0FRAN ONE (14:29)
[2021-04-22] MEDS ORDERED: proPOfol 200 MG/20 ML (DIPRIVAN) VIAL IV ONE (14:29)
[2021-04-22] MEDS ORDERED: LACTATED RINGERS 1,000 ML IV PRN (14:30)
[2021-04-22] MEDS ORDERED: IBUP-1773 PO (14:48)
[2021-04-22] MEDS ORDERED: ACHD5005 PO (14:48)
--- NOTE | 2021-04-22 14:50 | Discharge Inst-Women's Service ---
Discharge Inst-Women's Serv Depart Medication/Instructions New, Converted or Re-Newed RX: RX on Chart Problems Reviewed?: Yes Consults/Follow Up Additional Follow Up: Yes Orders/Referrals Dr. Morrison in 2-3 weeks Activity Activity: Activity as Tolerated NO SMOKING: NO SMOKING Nothing Inside Vagina: No Douching, No [place], No Tampons Diet Discharge Diet: No Restrictions Symptoms to Report to : Bleeding Excessive, Pain Increased, Fever Over 101 Degrees F, Vaginal Bleeding Increase, Questions/Concerns For Any Problems or Questions: Contact Your Physician VICKY MORRISON DO Apr 22, 2021 14:50
[2021-04-22 14:59] LABS: BASOPHILS % (AUTO) 0 % (0-10); EOSINOPHILS # (AUTO) 0.1 10^3/uL (0.0-0.3); EOSINOPHILS % (AUTO) 2 % (0-10); HEMATOCRIT 35 % (35-52); HEMOGLOBIN 11.5 g/dL (11.5-16.0); LYMPHOCYTES # (AUTO) 2.3 10^3/uL (1.0-4.0); LYMPHOCYTES % (AUTO) 26 % (12-44); MEAN CORPUSCULAR HEMOGLOBIN 27 pg (25-34); MEAN CORPUSCULAR HGB CONC 33 g/dL (32-36); MEAN CORPUSCULAR VOLUME 82 fL (80-99); MEAN PLATELET VOLUME 10.3 fL (9.0-12.2); MONOCYTES # (AUTO) 0.5 10^3/uL (0.0-1.0); MONOCYTES % (AUTO) 6 % (0-12); NEUTROPHILS # (AUTO) 5.9 10^3/uL (1.8-7.8); NEUTROPHILS % (AUTO) 67 % (42-75); PLATELET COUNT 301 10^3/uL (130-400); WHITE BLOOD COUNT 8.9 10^3/uL (4.3-11.0)
[2021-04-22] MEDS ORDERED: D5 LR IV SOLUTION 1,000 ML IV SCH (15:00)
[2021-04-22] MEDS ORDERED: ONDANSETRON 4 MG/2 ML (SDV) Z0FRAN IVP PRN (15:00)
[2021-04-22] MEDS ORDERED: KETOROLAC 30 MG/ML VIAL IVP ONE (15:00)
[2021-04-22] MEDS ORDERED: HYDROcodone/APAP 5 MG/325 MG (LORTAB) TAB PO PRN (15:00)
[2021-04-22] MEDS ORDERED: SEVOFLURANE (ULTANE) 15 ML INHAL SOLN ONE (15:02)
[2021-04-22] MEDS ORDERED: KETOROLAC 30 MG/ML VIAL ONE (15:07)
[2021-04-22] MEDS ORDERED: HYDROcodone/APAP 5 MG/325 MG (LORTAB) TAB ONE (16:53)
--- NOTE | 2021-04-23 00:27 | OPERATIVE REPORT ---
DATE OF SERVICE: PREOPERATIVE DIAGNOSIS: A 21-year-old female with missed . POSTOPERATIVE DIAGNOSIS: A 21-year-old female with missed . PROCEDURE: Suction D and C. SURGEON: Vicky Morrison DO ANESTHESIA: LMA general. ESTIMATED BLOOD LOSS: 200 mL. URINE OUTPUT: 50 mL, clear drained at the start of the procedure. FLUIDS: 1000 mL lactated Ringer's solution. INTRAOPERATIVE FINDINGS: Normal external female genitalia with moderate amount of products of conception retrieved on suction D and C. SPECIMEN SENT: Products of conception. INDICATIONS FOR PROCEDURE: This 21-year-old female is a patient who had sought out care in my office; however, having some bleeding in the first trimester had repeat beta hCGs done, which showed a fall in beta hCG. Ultrasound also confirmed there was no cardiac activity on a suspected 6-week intrauterine . Due to the fall in hCG and no cardiac activity, discussed with the patient the likelihood of a missed AB, risk of waiting at home for spontaneous miscarriage versus suction D and C. Reviewed with the patient in detail. After all of her questions were answered, she agreed that suction D and C would be the best choice for her, consent was obtained in the preoperative area and the patient was taken to the operating room. OPERATIVE REPORT IN DETAIL: Once in the operating room, LMA anesthesia was noted to be adequate. She was placed in dorsal lithotomy position and prepped and draped in normal sterile fashion. Timeout was performed. Anesthesia was noted to be adequate. I placed a weighted speculum into the patient's vagina. Right angle retractor was used to visualize the cervix, which was grasped at 12 o'clock position using a long Allis clamp. I then gently sound the uterine cavity, was found to be 8 cm. I gently dilated cervix using Tamayo dilators to maximum dilatation approximately 1 cm, at which point I selected a #9 rigid curved Mac suction curette. I placed this within the uterus and I attached the [place] suction device. Once 70 mmHg of suction are applied, I cleared the uterine cavity in methodical fashion by rotating the suction curette device on several different passes. I then performed a gentle curettage using an endometrial curette. There was no residual tissue noted and a slight uterine cry is appreciated on curettage. One final pass with the Mac suction curette allows to clear all the residual blood clots and tissue at that point. There was no active bleeding noted from the uterus. All instruments were removed from the patient's vagina. The patient tolerated the procedure well and sent to recovery area in stable condition. Lap and sponge count was correct at the end of the procedure. Instrument counts correct as well. Job ID: [id number] DocumentID: [id number] Dictated Date: 04/22/2021 16:19:22 Spray Ii Painter Date: 04/23/2021 00:27:00 Dictated By: VICKY MORRISON DO
== END 2021-04-22 17:40 | disposition home or self-care (01) ==
LOC: SDC 12:04
PROVIDERS: ATTEND Obstetrics & Gynecology
DX: O02.1 Missed abortion (principal); Z11.2 Encounter for screening for other bacterial diseases
CPT/HCPCS: 36415; 85025; 86850; 86900; 86901; 87081